=== PATIENT | female | born 1955 | race Caucasian/White ===

== ENCOUNTER → 2021-08-07 17:48 | Outpatient (CLI) | payer MEDICARE, BC, SELFPAY | PROVIDERS: Visit Provider Nurse Practitioner Family | DX: N39.0 Urinary tract infection, site not specified (principal) | CPT/HCPCS: 87086 ==

== ENCOUNTER 2024-12-28 09:45 | Outpatient (RCR) | payer MEDICARE, BC, SELFPAY ==
--- NOTE | 2024-07-10 18:40 | PT.OIE ---
Current Diagnoses Primary osteoarthritis, right shoulder (07/10/24) Superior glenoid labrum lesion of right shoulder, subsequent encounter (07/10/24) Strain of muscle(s) and tendon(s) of the rotator cuff of right shoulder, subsequent encounter (07/10/24) Visit Care Team Role Provider Type ANAID Fagan Family Provider Non-Staff Primary Care Provider Specialty: Medical Address: [address] [place] [address], [place], [address] Email: Cesar Cole PA-C Attending Provider Non-Staff Referring Provider Specialty: Medical Address: [address] [place] [address]. [address], [place], [address] Email: Physical Therapy Initial Evaluation PT-OP-A Visit Information Start: 07/09/24 13:22 Freq: Status: Active Protocol: Document 07/10/24 16:07 LRN (Rec: 07/10/24 18:28 LRN [id number]) Out-Patient Physical Therapy Visit Information Visit Information Visit Type Initial Evaluation Visit Note 17:10 Message left at physician office requesting protocol for pt's rehab and clarification of surgery performed (muscles involved and or labrum). 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 PT-OP-B Current Condition Start: 07/09/24 13:22 Freq: Status: Active Protocol: Document 07/10/24 16:07 LRN (Rec: 07/10/24 18:28 LRN [id number]) Current Condition History of Current Condition Onset Date 07/05/24 Current Complaints R shoulder, neck, biceps and into wrist, and back of shoulder pain History of Current Condition Pt reports 07/05/24 had R rotator cuff repair surgery, biceps repair, and repair of upper shoulder muscles. Not able to verify her surgery as documents not available. Pt states she could lift R arm before the surgery and touch the top of her head, but couldn't reach forward, out to side or backward due to pain (rated 6-7/10). 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 Spouse helps with bathing, dressing, combing hair, and does cooking of meals. Pt is on medications for her pain (reported 8-9/10) and she reports using her ice machine all the time because of the pain. Prior Treatments and Tests No PT prior to surgery, did self exercises. Developmental History Developmental History Pt reports she has always had low back pain since breaking her back in 2014 and wore a cast for 5 months and then soft cast for 2 months. Low Back Pain rated 0-5/10. Treatment Goals Patient/Caregiver Goals Pt goals: - get rotator cuff working and arm working to be able to use both arms for ADLs. - 2 wks post op - able to have PROM - 4 wks - start to lift arm and rotate at shoulder. - 8 wks - lift arm independently for self care of bathing and dressing. -12 wks - pt able to strengthen the arm to carry light objects, comb hair, cook simple meals w/L hand (pt is R handed). Personal Factors Other Personal Factors That May Effect Lives with spouse who can help Therapy/Recovery with home exercises. 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 Long hx of LBP from L3 burst fracture. PT-OP-C Subjective Start: 07/09/24 13:22 Freq: Status: Active Protocol: Document 07/10/24 16:07 LRN (Rec: 07/10/24 18:28 LRN [id number]) OP-PT Subjective Patient Comments Patient Comments Pt reports being light headed from the surgery. Spouse thinks she looked loopy after treatment. Patient Questionnaires Quick Dash- Upper Extremity Quick Dash UE Score 81.81 Quick Dash UE Impairment 80 to 99% Impaired (Score 80- 99) OP-PT Pain Assessment Pain Assessment Grid Paper Pain Assessment Grid Completed Yes Location R forearm Pain Location Details R forearm to wrist Intensity 6 Scale Used Numeric (0 - 10) Description Aching Frequency Constant Pain Alleviating Factors Medication Posterior R shldr/neck Intensity 9 Scale Used Numeric (0 - 10) Description- Other Achy and throbs Frequency Constant Pain Alleviating Factors Cold,Medication,Splinting Other Pain Alleviating Factors Ice machine that she leaves on although instructions are for off/on use. R shoulder Pain Location Details Around R shoulder, neck, and into brachium Intensity 9 Scale Used Numeric (0 - 10) Description- Other Achy and throbs Frequency Constant Pain Alleviating Factors Cold,Medication Other Pain Alleviating Factors Ice machine that she leaves on although instructions are for off/on use. Comments Pain Comments Per pain diagram her R shoulder pain ranges 6-7/10, but verbally she reports her pain is 8-9/10. PT-OP-H Neuro Start: 07/09/24 13:22 Freq: Status: Active Protocol: Document 07/10/24 16:07 LRN (Rec: 07/10/24 18:28 LRN [id number]) Sensation Evaluation Gross Sensation Gross Sensation WNL Comments Summary Comments Hyper sensitive in the R shoulder and axillary region. PT-OP-J Posture/Palpation/Skin Start: 07/09/24 13:22 Freq: Status: Active Protocol: Document 07/10/24 16:07 LRN (Rec: 07/10/24 18:28 LRN [id number]) Posture Evaluation Position Sitting Head/C-Spine Posture Forward Head Shoulder Posture (L) Elevated Comments Posture Comments Dowagers hump, mildly straightened T/S spine. Palpation Assessment Location R shoulder Palpation Location Below clavicle, shdr to neck, brachium and forearm. Palpation Findings Soft Tissue Tightness,Muscle Guarding,Tenderness PT-OP-K Range of Motion Start: 07/09/24 13:22 Freq: Status: Active Protocol: Document 07/10/24 16:07 LRN (Rec: 07/10/24 18:28 LRN [id number]) Shoulder Goniometric Range of Motion Shoulder Right Passive Testing Position Standing Flexion 43 Abduction 15 Comments PROM during Codman's exercise. Right Active Testing Position Sitting Comments AROM not appropriate. Left Active Shoulder ROM WFL Yes Testing Position Sitting Flexion 150 Extension 45 Abduction 180 Internal Rotation Behind Back (text) T11 Comments Behind the head: T2 PT-OP-M Strength Start: 07/09/24 13:22 Freq: Status: Active Protocol: Document 07/10/24 16:07 LRN (Rec: 07/10/24 18:28 LRN [id number]) Shoulder Strength Shoulder Manual Muscle Testing Right Comments Pt under restriction for R shoulder AROM. Pt is able to move her R shoulder minimally; therefore strength appears to be 0-1/10. Left Comments Strength is generally 3-4/5 as pt is able to move against gravity and can overcome resistance of velcro to don/ doff her R shoulder brace. Formal assessment will be performed at next visit. PT-OP-Q Treatments Start: 07/09/24 13:22 Freq: Status: Active Protocol: Document 07/10/24 16:07 LRN (Rec: 07/10/24 18:28 LRN [id number]) Therapeutic Exercises Standing Exercises Codman's Side right Reps/Minutes 10x CW/CCW Comments Cued pt not to actively make circles, but to swing arm for PROM. Therapeutic Activity Therapeutic Activity Don/Doff R shdr brace Name Donning & doffing of R shoulder ABD soft brace Reps/Minutes 8' Comments Pt visually shown location of velcro attachment to ABD pillow with use of mirror. Pt needed training for passive removal of brace from the R arm as she was lifting her arm in ABD to remove her R arm from the brace. Self-Care/Home Management Treatment Education Other Education Discussed results of evaluation, goals, treatment, and plan of care (POC) with pt , attendance/cx/dns policy; pt agreeable to evaluation, goals, treatment, attendance/ cx/dns policy and POC. Activities Self-Care/Home Management Activities Pt I/S to continue with only activities previously taught in hospital until protocol could be obtained. PT-OP-T Assessment and Plan Start: 07/09/24 13:22 Freq: Status: Active Protocol: Document 07/10/24 16:07 LRN (Rec: 07/10/24 18:28 LRN [id number]) Physical Therapy Assessment Rehab Potential Rehabilitation Potential Good Evaluation Complexity Number of Personal Factors/Comorbidities 1-2 Number of Body Systems Impaired 4 or More Clinical Presentation at Evaluation Evolving Impairments Impairments Activity Tolerance,Functional Activities,Functional Mobility ,Pain,Posture,ROM,Soft Tissue Mobility,Strength Goals Four Impairment Decreased function Short Term Goal (STG) pt able to strengthen the arm to carry light objects STG Duration 09/07/24 Forestry Patrolman Goal (LTG) Improve function per UE Quickdash score of 25 or less LTG Duration 10/30/24 Three Impairment Decreased R shoulder strength Short Term Goal (STG) Pt will be able to lift her R arm overhead and rotate at shoulder for independent dressing and personal care ( comb hair). STG Duration 09/07/24 Group Home Goal (LTG) Pt will be able to cook simple light wgt meals with R arm, and use both arms for ADLs ( bathing and cooking). LTG Duration 10/30/24 Two Impairment Decreased R shoulder PROM Short Term Goal (STG) Improve R shoulder PROM to 50% of normal (per L shoulder PROM) once cleared for all motions of PROM. STG Duration 09/07/24 Group Home Goal (LTG) Improve R shoulder PROM to 80% -90% of normal ROM (per L shoulder PROM) LTG Duration 10/30/24 One Impairment Lacks appropriate self care HEP Short Term Goal (STG) Pt will be on a home exercise program with the assist of her spouse for PROM exercises and pain managment. STG Duration 08/03/24 Group Home Goal (LTG) Pt will be independent in a self care HEP of R shoulder PROM/AROM/strengthening ex's for return to her prior level of function. LTG Duration 10/30/24 Assessment Summary Assessment Pt is a 68 yo female who present s/p R rotator cuff repair (07/05/24) and per pt, biceps and other soft tissue repairs. Record review shows no protocol or surgical notes available. Message has been left at referring physician's office requesting protocol and clarification of surgery performed/surgical note. The pt is 81% functionally impaired per UE Quickdash scoring and is being assisted by her spouse with all daily activities (dressing, bathing, personal care, cooking). The pt is extremely limited in passive R shoulder mobility ( as noted per Codman exercise) and is expected to be limited to PROM of the shoulder for at least 4-6 weeks, but protocol not yet available. The pt has a very supportive spouse. The pt will benefit from skilled physical therapy to return her an improved prior level of functional. Physical Therapy Plan Frequency and Duration Frequency of Treatment 2x/Week Duration of treatment (weeks) 16 Plan of Care Start Date 07/10/24 Plan of Care End Date 10/30/24 Therapeutic Interventions Therapeutic Interventions Home Exercise Program,Manual Therapy,Neuromuscular Re- education,Self-Care/Home Management,Soft Tissue Mobilization,Taping, Therapeutic Activities, Therapeutic Exercises Modalities Cold Pack/Ice Massage,Electric Stimulation,Hot Packs, Ultrasound Next Visit Focus/Plan Next Note Type Treatment Note Next Visit Plan Request MD rehab protocol and clarify if pt had biceps repair and other upper shoulder ms repaired and if labrum was repaired. MMT L shoulder/elbow/wrist strength. Assess L shoulder PROM in supine (hold or R shoulder until protocol obtained), and active forearm/wrist ROM/ strength. Codman's PROM of R shoulder only until protocol and surgical history obtained. Gentle STM/AROM of neck and intrascapular ms as tolerated, STM of R forearm. Pt education in sleeping posturing. POC: R shoulder RCR rehab, ? Biceps/?labral repair. Therapeutic Ex (strengthening/ ROM), Therapeutic Activity ( ADL, personal grooming), manual therapy (STM), Pt Education (HEP, Edema and pain mgmt).
--- NOTE | 2024-07-13 12:38 | PT.OTN ---
Current Diagnoses Primary osteoarthritis, right shoulder (07/13/24) Superior glenoid labrum lesion of right shoulder, subsequent encounter (07/13/24) Strain of muscle(s) and tendon(s) of the rotator cuff of right shoulder, subsequent encounter (07/13/24) Physical Therapy Treatment Note PT-OP-A Visit Information Start: 07/09/24 13:22 Freq: Status: Active Protocol: Document 07/13/24 10:44 LRN (Rec: 07/13/24 12:23 LRN [id number]) Out-Patient Physical Therapy Visit Information Visit Information Visit Type Treatment Note Visit Note Protocol rec'd from physician for RCR-Small to Medium sized tear, Extensive SLAP tear. Visit Start Time 10:44 Visit Stop Time 11:35 Visit Number 2 Evaluation Information Evaluation Date 07/10/24 Precautions Precautions 07/12/24 P/O arthroscopic R shdr RCR rpr, biceps tenodesis & debridement of extensive superior labral tearing (SLAP tear). 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 PT-OP-B Current Condition Start: 07/09/24 13:22 Freq: Status: Active Protocol: Document 07/10/24 16:07 LRN (Rec: 07/10/24 18:28 LRN [id number]) Current Condition History of Current Condition Onset Date 07/05/24 Current Complaints R shoulder, neck, biceps and into wrist, and back of shoulder pain History of Current Condition Pt reports 07/05/24 had R rotator cuff repair surgery, biceps repair, and repair of upper shoulder muscles. Not able to verify her surgery as documents not available. Pt states she could lift R arm before the surgery and touch the top of her head, but couldn't reach forward, out to side or backward due to pain (rated 6-7/10). 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 Spouse helps with bathing, dressing, combing hair, and does cooking of meals. Pt is on medications for her pain (reported 8-9/10) and she reports using her ice machine all the time because of the pain. Prior Treatments and Tests No PT prior to surgery, did self exercises. Developmental History Developmental History Pt reports she has always had low back pain since breaking her back in 2014 and wore a cast for 5 months and then soft cast for 2 months. Low Back Pain rated 0-5/10. Treatment Goals Patient/Caregiver Goals Pt goals: - get rotator cuff working and arm working to be able to use both arms for ADLs. - 2 wks post op - able to have PROM - 4 wks - start to lift arm and rotate at shoulder. - 8 wks - lift arm independently for self care of bathing and dressing. -12 wks - pt able to strengthen the arm to carry light objects, comb hair, cook simple meals w/L hand (pt is R handed). Personal Factors Other Personal Factors That May Effect Lives with spouse who can help Therapy/Recovery with home exercises. 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 Long hx of LBP from L3 burst fracture. PT-OP-C Subjective Start: 07/09/24 13:22 Freq: Status: Active Protocol: Document 07/13/24 10:44 LRN (Rec: 07/13/24 12:23 LRN [id number]) OP-PT Subjective Patient Comments Patient Comments Pt brings in papers from surgery for review. Wanting review of her home ex's and what she is doing at home. PT-OP-H Neuro Start: 07/09/24 13:22 Freq: Status: Active Protocol: Document 07/10/24 16:07 LRN (Rec: 07/10/24 18:28 LRN [id number]) Sensation Evaluation Gross Sensation Gross Sensation WNL Comments Summary Comments Hyper sensitive in the R shoulder and axillary region. PT-OP-J Posture/Palpation/Skin Start: 07/09/24 13:22 Freq: Status: Active Protocol: Document 07/10/24 16:07 LRN (Rec: 07/10/24 18:28 LRN [id number]) Posture Evaluation Position Sitting Head/C-Spine Posture Forward Head Shoulder Posture (L) Elevated Comments Posture Comments Dowagers hump, mildly straightened T/S spine. Palpation Assessment Location R shoulder Palpation Location Below clavicle, shdr to neck, brachium and forearm. Palpation Findings Soft Tissue Tightness,Muscle Guarding,Tenderness PT-OP-K Range of Motion Start: 07/09/24 13:22 Freq: Status: Active Protocol: Document 07/10/24 16:07 LRN (Rec: 07/10/24 18:28 LRN [id number]) Shoulder Goniometric Range of Motion Shoulder Right Passive Testing Position Standing Flexion 43 Abduction 15 Comments PROM during Codman's exercise. Right Active Testing Position Sitting Comments AROM not appropriate. Left Active Shoulder ROM WFL Yes Testing Position Sitting Flexion 150 Extension 45 Abduction 180 Internal Rotation Behind Back (text) T11 Comments Behind the head: T2 PT-OP-M Strength Start: 07/09/24 13:22 Freq: Status: Active Protocol: Document 07/10/24 16:07 LRN (Rec: 07/10/24 18:28 LRN [id number]) Shoulder Strength Shoulder Manual Muscle Testing Right Comments Pt under restriction for R shoulder AROM. Pt is able to move her R shoulder minimally; therefore strength appears to be 0-1/10. Left Comments Strength is generally 3-4/5 as pt is able to move against gravity and can overcome resistance of velcro to don/ doff her R shoulder brace. Formal assessment will be performed at next visit. PT-OP-Q Treatments Start: 07/09/24 13:22 Freq: Status: Active Protocol: Document 07/13/24 10:44 LRN (Rec: 07/13/24 12:23 LRN [id number]) Therapeutic Exercises Supine Exercises Diaphragmatic Breathing Supine Exercise Name Deep Breathing Reps/Minutes 4' Comments Cued to place hand on chest and abdomen to relax chest Semi-reclined Bowel massage Supine Exercise Name Training in semi-reclined bowel massage Reps/Minutes 10x - 10' Comments Much v cuing and some phys cuing for proper movement/ speed Sitting Exercises Wrist flex/ext Sitting Exercise Name AROM Side left Reps/Minutes 10x in sup, 10x in pron Sup/Pron Sitting Exercise Name Self assisted forearm sup/pron Side left Reps/Minutes 15x R elbow flex Sitting Exercise Name Self assisted elbow flexion Side left Reps/Minutes 10x Comments Pt had no shoulder pain. Standing Exercises Codman's Side right Reps/Minutes 10x CW/CCW Comments Cued pt not to actively make circles, but to swing arm for PROM. Therapeutic Activity Therapeutic Activity Don/Doff R shdr brace Name Donning & doffing of R shoulder ABD soft brace Reps/Minutes 16' Comments Reviewed brace fit as pt explained how she removes the brace, moving very slowly through the process. At end of treatment the pt needed assist for donning of R ABD brace and reseting of strap that was twisted. Manual Therapy Treatment Consent Patient gave verbal consent for manual Yes treatment Soft Tissue Mobilization Bowel Massage Body Location R hip>R lower ribcage>L lower ribcage>L hip Mobilization Type Other Intensity/Depth Superficial Body Position Semi-reclined Comments Massage in CCW circles. I/S in ILU massage as well, but practiced BM Stimulation massage. Self-Care/Home Management Treatment Education Other Education Reviewed MD protocol (PO 0-3 wks) of approved PROM R shoulder: Flex <90?, AB 30-40 ?, ER<20? in scapular plane. PROM elbow flex, AROM hand, wrist, AAROM-none. @2wks periscapular Active mvmts. Discussed with pt HEP: active wrist flex/ext, AA sup/pron ( due to weakness), and assisted elbow flex/ext. Activities Self-Care/Home Management Activities Issued & reviewed handouts for Bowel Stimulation massage, and Diaphragmatic Breathing. PT-OP-R Modalities Start: 07/09/24 13:22 Freq: Status: Active Protocol: Document 07/13/24 10:44 LRN (Rec: 07/13/24 12:23 LRN [id number]) Hot Pack/Cold Pack Treatment Cold Pack Location R shoulder Patient Position Sitting Patient Tolerance Good Comments Pt set up with disposable ice pack since pt was not returning home immediately. PT-OP-T Assessment and Plan Start: 07/09/24 13:22 Freq: Status: Active Protocol: Document 07/13/24 10:44 LRN (Rec: 07/13/24 12:23 LRN [id number]) Physical Therapy Assessment Goals Four Impairment Decreased function Short Term Goal (STG) pt able to strengthen the arm to carry light objects STG Duration 09/07/24 Correction Goal (LTG) Improve function per UE Quickdash score of 25 or less LTG Duration 10/30/24 Three Impairment Decreased R shoulder strength Short Term Goal (STG) Pt will be able to lift her R arm overhead and rotate at shoulder for independent dressing and personal care ( comb hair). STG Duration 09/07/24 Correction Goal (LTG) Pt will be able to cook simple light wgt meals with R arm, and use both arms for ADLs ( bathing and cooking). LTG Duration 10/30/24 Two Impairment Decreased R shoulder PROM Short Term Goal (STG) Improve R shoulder PROM to 50% of normal (per L shoulder PROM) once cleared for all motions of PROM. STG Duration 09/07/24 Lan Analyst Goal (LTG) Improve R shoulder PROM to 80% -90% of normal ROM (per L shoulder PROM) LTG Duration 10/30/24 One Impairment Lacks appropriate self care HEP Short Term Goal (STG) Pt will be on a home exercise program with the assist of her spouse for PROM exercises and pain managment. 07/13/24: I/S pt in self PROM of elbow and forearm sup/pron , and Active wrist flex/ext. Deep breathing and bowel massage. STG Duration 08/03/24 progressed 07/13/24 Lan Analyst Goal (LTG) Pt will be independent in a self care HEP of R shoulder PROM/AROM/strengthening ex's for return to her prior level of function. 07/13/24: I/S pt in self PROM of elbow and forearm sup/pron , and Active wrist flex/ext. Deep breathing and bowel massage. LTG Duration 10/30/24 progressed 07/13/24 Assessment Summary Assessment 68 yo female 1wk and a day s/p R RC rpr/biceps tenodesis/ subacromial bursectomy/ extensive SLAP tear debridement, 81% functionally impaired per UE Quickdash. Rehab protocol received; therefore rehab will follow referring physicians protocol. Today, the pt is having less pain in R shoulder, but does complain of constipation and abdominal discomfort. She may be minimally using her biceps some with haircair maneuvers; therefore further discussion of precautions is needed. After training she was able to demonstrate proper Codman's for PROM at shoulder vs what appeared to be more of a painful AROM method. Physical Therapy Plan Frequency and Duration Frequency of Treatment 2x/Week Duration of treatment (weeks) 16 Plan of Care Start Date 07/10/24 Plan of Care End Date 10/30/24 Next Visit Focus/Plan Next Note Type Treatment Note Next Visit Plan MD protocol (PO 0-3 wks) of approved PROM: R shoulder Flex <90?, AB 30-40?, ER<20? in scapular plane, IR 0?. PROM elbow flex, AROM hand, wrist, AAROM-none. No shoulder AROM/ AAROM, no lifting of objects. Hold periscapular Active mvmts (retract, infer glide, setting, low row as subscap/ teres min rpr as noted in op report of full thickness RC tear). See progression criteria per protocol. Educate/train pt in PROM biceps until s/p 4 wks can start AAROM. Improve PROM of shoulder <20? and flex <90?. No scapular ex until
--- NOTE | 2024-07-13 12:39 | PT.OTN ---
Current Diagnoses Primary osteoarthritis, right shoulder (07/13/24) Superior glenoid labrum lesion of right shoulder, subsequent encounter (07/13/24) Strain of muscle(s) and tendon(s) of the rotator cuff of right shoulder, subsequent encounter (07/13/24) Physical Therapy Treatment Note PT-OP-A Visit Information Start: 07/09/24 13:22 Freq: Status: Active Protocol: Document 07/13/24 10:44 LRN (Rec: 07/13/24 12:23 LRN [id number]) Out-Patient Physical Therapy Visit Information Visit Information Visit Type Treatment Note Visit Note Protocol rec'd from physician for RCR-Small to Medium sized tear, Extensive SLAP tear. Visit Start Time 10:44 Visit Stop Time 11:35 Visit Number 2 Evaluation Information Evaluation Date 07/10/24 Precautions Precautions 07/12/24 P/O arthroscopic R shdr RCR rpr, biceps tenodesis & debridement of extensive superior labral tearing (SLAP tear). 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 PT-OP-B Current Condition Start: 07/09/24 13:22 Freq: Status: Active Protocol: Document 07/10/24 16:07 LRN (Rec: 07/10/24 18:28 LRN [id number]) Current Condition History of Current Condition Onset Date 07/05/24 Current Complaints R shoulder, neck, biceps and into wrist, and back of shoulder pain History of Current Condition Pt reports 07/05/24 had R rotator cuff repair surgery, biceps repair, and repair of upper shoulder muscles. Not able to verify her surgery as documents not available. Pt states she could lift R arm before the surgery and touch the top of her head, but couldn't reach forward, out to side or backward due to pain (rated 6-7/10). 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 Spouse helps with bathing, dressing, combing hair, and does cooking of meals. Pt is on medications for her pain (reported 8-9/10) and she reports using her ice machine all the time because of the pain. Prior Treatments and Tests No PT prior to surgery, did self exercises. Developmental History Developmental History Pt reports she has always had low back pain since breaking her back in 2014 and wore a cast for 5 months and then soft cast for 2 months. Low Back Pain rated 0-5/10. Treatment Goals Patient/Caregiver Goals Pt goals: - get rotator cuff working and arm working to be able to use both arms for ADLs. - 2 wks post op - able to have PROM - 4 wks - start to lift arm and rotate at shoulder. - 8 wks - lift arm independently for self care of bathing and dressing. -12 wks - pt able to strengthen the arm to carry light objects, comb hair, cook simple meals w/L hand (pt is R handed). Personal Factors Other Personal Factors That May Effect Lives with spouse who can help Therapy/Recovery with home exercises. 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 Long hx of LBP from L3 burst fracture. PT-OP-C Subjective Start: 07/09/24 13:22 Freq: Status: Active Protocol: Document 07/13/24 10:44 LRN (Rec: 07/13/24 12:23 LRN [id number]) OP-PT Subjective Patient Comments Patient Comments Pt brings in papers from surgery for review. Wanting review of her home ex's and what she is doing at home. PT-OP-H Neuro Start: 07/09/24 13:22 Freq: Status: Active Protocol: Document 07/10/24 16:07 LRN (Rec: 07/10/24 18:28 LRN [id number]) Sensation Evaluation Gross Sensation Gross Sensation WNL Comments Summary Comments Hyper sensitive in the R shoulder and axillary region. PT-OP-J Posture/Palpation/Skin Start: 07/09/24 13:22 Freq: Status: Active Protocol: Document 07/10/24 16:07 LRN (Rec: 07/10/24 18:28 LRN [id number]) Posture Evaluation Position Sitting Head/C-Spine Posture Forward Head Shoulder Posture (L) Elevated Comments Posture Comments Dowagers hump, mildly straightened T/S spine. Palpation Assessment Location R shoulder Palpation Location Below clavicle, shdr to neck, brachium and forearm. Palpation Findings Soft Tissue Tightness,Muscle Guarding,Tenderness PT-OP-K Range of Motion Start: 07/09/24 13:22 Freq: Status: Active Protocol: Document 07/10/24 16:07 LRN (Rec: 07/10/24 18:28 LRN [id number]) Shoulder Goniometric Range of Motion Shoulder Right Passive Testing Position Standing Flexion 43 Abduction 15 Comments PROM during Codman's exercise. Right Active Testing Position Sitting Comments AROM not appropriate. Left Active Shoulder ROM WFL Yes Testing Position Sitting Flexion 150 Extension 45 Abduction 180 Internal Rotation Behind Back (text) T11 Comments Behind the head: T2 PT-OP-M Strength Start: 07/09/24 13:22 Freq: Status: Active Protocol: Document 07/10/24 16:07 LRN (Rec: 07/10/24 18:28 LRN [id number]) Shoulder Strength Shoulder Manual Muscle Testing Right Comments Pt under restriction for R shoulder AROM. Pt is able to move her R shoulder minimally; therefore strength appears to be 0-1/10. Left Comments Strength is generally 3-4/5 as pt is able to move against gravity and can overcome resistance of velcro to don/ doff her R shoulder brace. Formal assessment will be performed at next visit. PT-OP-Q Treatments Start: 07/09/24 13:22 Freq: Status: Active Protocol: Document 07/13/24 10:44 LRN (Rec: 07/13/24 12:23 LRN [id number]) Therapeutic Exercises Supine Exercises Diaphragmatic Breathing Supine Exercise Name Deep Breathing Reps/Minutes 4' Comments Cued to place hand on chest and abdomen to relax chest Semi-reclined Bowel massage Supine Exercise Name Training in semi-reclined bowel massage Reps/Minutes 10x - 10' Comments Much v cuing and some phys cuing for proper movement/ speed Sitting Exercises Wrist flex/ext Sitting Exercise Name AROM Side left Reps/Minutes 10x in sup, 10x in pron Sup/Pron Sitting Exercise Name Self assisted forearm sup/pron Side left Reps/Minutes 15x R elbow flex Sitting Exercise Name Self assisted elbow flexion Side left Reps/Minutes 10x Comments Pt had no shoulder pain. Standing Exercises Codman's Side right Reps/Minutes 10x CW/CCW Comments Cued pt not to actively make circles, but to swing arm for PROM. Therapeutic Activity Therapeutic Activity Don/Doff R shdr brace Name Donning & doffing of R shoulder ABD soft brace Reps/Minutes 16' Comments Reviewed brace fit as pt explained how she removes the brace, moving very slowly through the process. At end of treatment the pt needed assist for donning of R ABD brace and reseting of strap that was twisted. Manual Therapy Treatment Consent Patient gave verbal consent for manual Yes treatment Soft Tissue Mobilization Bowel Massage Body Location R hip>R lower ribcage>L lower ribcage>L hip Mobilization Type Other Intensity/Depth Superficial Body Position Semi-reclined Comments Massage in CCW circles. I/S in ILU massage as well, but practiced BM Stimulation massage. Self-Care/Home Management Treatment Education Other Education Reviewed MD protocol (PO 0-3 wks) of approved PROM R shoulder: Flex <90?, AB 30-40 ?, ER<20? in scapular plane. PROM elbow flex, AROM hand, wrist, AAROM-none. @2wks periscapular Active mvmts. Discussed with pt HEP: active wrist flex/ext, AA sup/pron ( due to weakness), and assisted elbow flex/ext. Activities Self-Care/Home Management Activities Issued & reviewed handouts for Bowel Stimulation massage, and Diaphragmatic Breathing. PT-OP-R Modalities Start: 07/09/24 13:22 Freq: Status: Active Protocol: Document 07/13/24 10:44 LRN (Rec: 07/13/24 12:23 LRN [id number]) Hot Pack/Cold Pack Treatment Cold Pack Location R shoulder Patient Position Sitting Patient Tolerance Good Comments Pt set up with disposable ice pack since pt was not returning home immediately. PT-OP-T Assessment and Plan Start: 07/09/24 13:22 Freq: Status: Active Protocol: Document 07/13/24 10:44 LRN (Rec: 07/13/24 12:23 LRN [id number]) Physical Therapy Assessment Goals Four Impairment Decreased function Short Term Goal (STG) pt able to strengthen the arm to carry light objects STG Duration 09/07/24 [facility] Goal (LTG) Improve function per UE Quickdash score of 25 or less LTG Duration 10/30/24 Three Impairment Decreased R shoulder strength Short Term Goal (STG) Pt will be able to lift her R arm overhead and rotate at shoulder for independent dressing and personal care ( comb hair). STG Duration 09/07/24 [facility] Goal (LTG) Pt will be able to cook simple light wgt meals with R arm, and use both arms for ADLs ( bathing and cooking). LTG Duration 10/30/24 Two Impairment Decreased R shoulder PROM Short Term Goal (STG) Improve R shoulder PROM to 50% of normal (per L shoulder PROM) once cleared for all motions of PROM. STG Duration 09/07/24 Sliver Lap Machine Tender Goal (LTG) Improve R shoulder PROM to 80% -90% of normal ROM (per L shoulder PROM) LTG Duration 10/30/24 One Impairment Lacks appropriate self care HEP Short Term Goal (STG) Pt will be on a home exercise program with the assist of her spouse for PROM exercises and pain managment. 07/13/24: I/S pt in self PROM of elbow and forearm sup/pron , and Active wrist flex/ext. Deep breathing and bowel massage. STG Duration 08/03/24 progressed 07/13/24 Sliver Lap Machine Tender Goal (LTG) Pt will be independent in a self care HEP of R shoulder PROM/AROM/strengthening ex's for return to her prior level of function. 07/13/24: I/S pt in self PROM of elbow and forearm sup/pron , and Active wrist flex/ext. Deep breathing and bowel massage. LTG Duration 10/30/24 progressed 07/13/24 Assessment Summary Assessment 68 yo female 1wk and a day s/p R RC rpr/biceps tenodesis/ subacromial bursectomy/ extensive SLAP tear debridement, 81% functionally impaired per UE Quickdash. Rehab protocol received; therefore rehab will follow referring physicians protocol. Today, the pt is having less pain in R shoulder, but does complain of constipation and abdominal discomfort. She may be minimally using her biceps some with haircair maneuvers; therefore further discussion of precautions is needed. After training she was able to demonstrate proper Codman's for PROM at shoulder vs what appeared to be more of a painful AROM method. Physical Therapy Plan Frequency and Duration Frequency of Treatment 2x/Week Duration of treatment (weeks) 16 Plan of Care Start Date 07/10/24 Plan of Care End Date 10/30/24 Next Visit Focus/Plan Next Note Type Treatment Note Next Visit Plan MD protocol (PO 0-3 wks) of approved PROM: R shoulder Flex <90?, AB 30-40?, ER<20? in scapular plane, IR 0?. PROM elbow flex, AROM hand, wrist, AAROM-none. No shoulder AROM/ AAROM, no lifting of objects. Hold periscapular Active mvmts (retract, infer glide, setting, low row as subscap/ teres min rpr as noted in op report of full thickness RC tear). See progression criteria per protocol. Educate/train pt in PROM biceps until s/p 4 wks can start AAROM. Improve PROM of shoulder <20? and flex <90?. No scapular ex until
--- NOTE | 2024-07-18 16:39 | PT.OTN ---
Current Diagnoses Primary osteoarthritis, right shoulder (07/18/24) Superior glenoid labrum lesion of right shoulder, subsequent encounter (07/18/24) Strain of muscle(s) and tendon(s) of the rotator cuff of right shoulder, subsequent encounter (07/18/24) Physical Therapy Treatment Note PT-OP-A Visit Information Start: 07/09/24 13:22 Freq: Status: Active Protocol: Document 07/18/24 13:05 LRN (Rec: 07/18/24 13:50 LRN [id number]) Out-Patient Physical Therapy Visit Information Visit Information Visit Type Treatment Note Visit Start Time 13:05 Visit Stop Time 13:49 Visit Number 3 Evaluation Information Evaluation Date 07/10/24 Precautions Precautions 07/05/24 P/O arthroscopic R shdr RCR rpr, biceps tenodesis & debridement of extensive superior labral tearing (SLAP tear). 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 No cryotherapy to take due to last time water spilled out. PT-OP-B Current Condition Start: 07/09/24 13:22 Freq: Status: Active Protocol: Document 07/10/24 16:07 LRN (Rec: 07/10/24 18:28 LRN [id number]) Current Condition History of Current Condition Onset Date 07/05/24 Current Complaints R shoulder, neck, biceps and into wrist, and back of shoulder pain History of Current Condition Pt reports 07/05/24 had R rotator cuff repair surgery, biceps repair, and repair of upper shoulder muscles. Not able to verify her surgery as documents not available. Pt states she could lift R arm before the surgery and touch the top of her head, but couldn't reach forward, out to side or backward due to pain (rated 6-7/10). 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 Spouse helps with bathing, dressing, combing hair, and does cooking of meals. Pt is on medications for her pain (reported 8-9/10) and she reports using her ice machine all the time because of the pain. Prior Treatments and Tests No PT prior to surgery, did self exercises. Developmental History Developmental History Pt reports she has always had low back pain since breaking her back in 2014 and wore a cast for 5 months and then soft cast for 2 months. Low Back Pain rated 0-5/10. Treatment Goals Patient/Caregiver Goals Pt goals: - get rotator cuff working and arm working to be able to use both arms for ADLs. - 2 wks post op - able to have PROM - 4 wks - start to lift arm and rotate at shoulder. - 8 wks - lift arm independently for self care of bathing and dressing. -12 wks - pt able to strengthen the arm to carry light objects, comb hair, cook simple meals w/L hand (pt is R handed). Personal Factors Other Personal Factors That May Effect Lives with spouse who can help Therapy/Recovery with home exercises. 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 Long hx of LBP from L3 burst fracture. PT-OP-C Subjective Start: 07/09/24 13:22 Freq: Status: Active Protocol: Document 07/18/24 13:05 LRN (Rec: 07/18/24 13:50 LRN [id number]) OP-PT Subjective Patient Comments Patient Comments Saw PA yesterday and was told she was doing good. PT-OP-H Neuro Start: 07/09/24 13:22 Freq: Status: Active Protocol: Document 07/10/24 16:07 LRN (Rec: 07/10/24 18:28 LRN [id number]) Sensation Evaluation Gross Sensation Gross Sensation WNL Comments Summary Comments Hyper sensitive in the R shoulder and axillary region. PT-OP-J Posture/Palpation/Skin Start: 07/09/24 13:22 Freq: Status: Active Protocol: Document 07/10/24 16:07 LRN (Rec: 07/10/24 18:28 LRN [id number]) Posture Evaluation Position Sitting Head/C-Spine Posture Forward Head Shoulder Posture (L) Elevated Comments Posture Comments Dowagers hump, mildly straightened T/S spine. Palpation Assessment Location R shoulder Palpation Location Below clavicle, shdr to neck, brachium and forearm. Palpation Findings Soft Tissue Tightness,Muscle Guarding,Tenderness PT-OP-K Range of Motion Start: 07/09/24 13:22 Freq: Status: Active Protocol: Document 07/10/24 16:07 LRN (Rec: 07/10/24 18:28 LRN [id number]) Shoulder Goniometric Range of Motion Shoulder Right Passive Testing Position Standing Flexion 43 Abduction 15 Comments PROM during Codman's exercise. Right Active Testing Position Sitting Comments AROM not appropriate. Left Active Shoulder ROM WFL Yes Testing Position Sitting Flexion 150 Extension 45 Abduction 180 Internal Rotation Behind Back (text) T11 Comments Behind the head: T2 PT-OP-M Strength Start: 07/09/24 13:22 Freq: Status: Active Protocol: Document 07/10/24 16:07 LRN (Rec: 07/10/24 18:28 LRN [id number]) Shoulder Strength Shoulder Manual Muscle Testing Right Comments Pt under restriction for R shoulder AROM. Pt is able to move her R shoulder minimally; therefore strength appears to be 0-1/10. Left Comments Strength is generally 3-4/5 as pt is able to move against gravity and can overcome resistance of velcro to don/ doff her R shoulder brace. Formal assessment will be performed at next visit. PT-OP-Q Treatments Start: 07/09/24 13:22 Freq: Status: Active Protocol: Document 07/18/24 13:05 LRN (Rec: 07/18/24 13:50 LRN [id number]) Therapeutic Exercises Sitting Exercises Table slide Sitting Exercise Name Shoulder flex with slider sheet. Side right Reps/Minutes 10x Comments rest needed after ex Wrist flex/ext Sitting Exercise Name Semi-sit on plinth AROM Side left Reps/Minutes 15x Comments Arm in 20 deg AB Sup/Pron Sitting Exercise Name Semi-sit on plinth, Self assisted forearm sup/pron Side left Reps/Minutes 20x Comments Arm in 20 deg AB R elbow flex Sitting Exercise Name Semi-sit on plinth Passive flexion, active ext Side left Reps/Minutes 10x Comments Shoulder pain on releasing biceps for ext. Standing Exercises Codman's Standing Exercise Name forward bend stretch, then circles Side right Reps/Minutes 10x 3 CW/CCW, mving legs, mving hips, mving shoulders Comments Cued to swing arm for PROM and more fwd motion, rest after exer. PT-OP-R Modalities Start: 07/09/24 13:22 Freq: Status: Active Protocol: Document 07/13/24 10:44 LRN (Rec: 07/13/24 12:23 LRN [id number]) Hot Pack/Cold Pack Treatment Cold Pack Location R shoulder Patient Position Sitting Patient Tolerance Good Comments Pt set up with disposable ice pack since pt was not returning home immediately. PT-OP-T Assessment and Plan Start: 07/09/24 13:22 Freq: Status: Active Protocol: Document 07/18/24 13:05 LRN (Rec: 07/18/24 13:50 LRN [id number]) Physical Therapy Assessment Goals Four Impairment Decreased function Short Term Goal (STG) pt able to strengthen the arm to carry light objects STG Duration 09/07/24 Senior Living Goal (LTG) Improve function per UE Quickdash score of 25 or less LTG Duration 10/30/24 Three Impairment Decreased R shoulder strength Short Term Goal (STG) Pt will be able to lift her R arm overhead and rotate at shoulder for independent dressing and personal care ( comb hair). STG Duration 09/07/24 Insurance Account Representative Goal (LTG) Pt will be able to cook simple light wgt meals with R arm, and use both arms for ADLs ( bathing and cooking). LTG Duration 10/30/24 Two Impairment Decreased R shoulder PROM Short Term Goal (STG) Improve R shoulder PROM to 50% of normal (per L shoulder PROM) once cleared for all motions of PROM. STG Duration 09/07/24 Senior Living Goal (LTG) Improve R shoulder PROM to 80% -90% of normal ROM (per L shoulder PROM) LTG Duration 10/30/24 One Impairment Lacks appropriate self care HEP Short Term Goal (STG) Pt will be on a home exercise program with the assist of her spouse for PROM exercises and pain managment. 07/13/24: I/S pt in self PROM of elbow and forearm sup/pron , and Active wrist flex/ext. Deep breathing and bowel massage. STG Duration 08/03/24 progressed 07/13/24 Senior Living Goal (LTG) Pt will be independent in a self care HEP of R shoulder PROM/AROM/strengthening ex's for return to her prior level of function. 07/13/24: I/S pt in self PROM of elbow and forearm sup/pron , and Active wrist flex/ext. Deep breathing and bowel massage. LTG Duration 10/30/24 progressed 07/13/24 Assessment Summary Assessment 68 yo female 1 day short of 2 wks po R RC rpr(07/05/24)/ biceps tenodesis/subacromial bursectomy/extensive SLAP ( superior labral A-P) tear debridement. Today able to achieve 88 deg's passive shoulder flex with table slide ex. Pt able to do scapular pinch in sit, but not supine. Sore at end of therapy. Pt not wanting to take ice pack due to mess of water. Physical Therapy Plan Frequency and Duration Frequency of Treatment 2x/Week Duration of treatment (weeks) 16 Plan of Care Start Date 07/10/24 Plan of Care End Date 10/30/24 Next Visit Focus/Plan Next Note Type Treatment Note Next Visit Plan MD hall to mod R RCR protocol (PO 0-3 wks) of approved PROM : R shoulder Flex <90?, AB 30- 40?, ER<20? in scapular plane, IR 0?. PROM elbow flex, AROM hand, wrist, AAROM-none. No shoulder AROM/AAROM, no lifting of objects. Hold periscapular Active mvmts ( retract, infer glide, setting, low row as subscap/teres min rpr as noted in op report of full thickness RC tear). See progression criteria per protocol. Educate/train pt in PROM biceps until s/p 4 wks can start AAROM. Improve PROM of shoulder <20? and flex <90?. No scapular ex until
--- NOTE | 2024-07-20 14:46 | PT.OTN ---
Current Diagnoses Primary osteoarthritis, right shoulder (07/20/24) Superior glenoid labrum lesion of right shoulder, subsequent encounter (07/20/24) Strain of muscle(s) and tendon(s) of the rotator cuff of right shoulder, subsequent encounter (07/20/24) Physical Therapy Treatment Note PT-OP-A Visit Information Start: 07/09/24 13:22 Freq: Status: Active Protocol: Document 07/20/24 12:57 AB (Rec: 07/20/24 14:40 AB [id number]) Out-Patient Physical Therapy Visit Information Visit Information Visit Type Treatment Note Visit Start Time 13:48 Visit Stop Time 14:35 Visit Number 4 Number of DIRECTOR OF PUBLIC SAFETY Visits 1 Evaluation Information Evaluation Date 07/10/24 PT-OP-B Current Condition Start: 07/09/24 13:22 Freq: Status: Active Protocol: Document 07/10/24 16:07 LRN (Rec: 07/10/24 18:28 LRN [id number]) Current Condition History of Current Condition Onset Date 07/05/24 Current Complaints R shoulder, neck, biceps and into wrist, and back of shoulder pain History of Current Condition Pt reports 07/05/24 had R rotator cuff repair surgery, biceps repair, and repair of upper shoulder muscles. Not able to verify her surgery as documents not available. Pt states she could lift R arm before the surgery and touch the top of her head, but couldn't reach forward, out to side or backward due to pain (rated 6-7/10). 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 Spouse helps with bathing, dressing, combing hair, and does cooking of meals. Pt is on medications for her pain (reported 8-9/10) and she reports using her ice machine all the time because of the pain. Prior Treatments and Tests No PT prior to surgery, did self exercises. Developmental History Developmental History Pt reports she has always had low back pain since breaking her back in 2014 and wore a cast for 5 months and then soft cast for 2 months. Low Back Pain rated 0-5/10. Treatment Goals Patient/Caregiver Goals Pt goals: - get rotator cuff working and arm working to be able to use both arms for ADLs. - 2 wks post op - able to have PROM - 4 wks - start to lift arm and rotate at shoulder. - 8 wks - lift arm independently for self care of bathing and dressing. -12 wks - pt able to strengthen the arm to carry light objects, comb hair, cook simple meals w/L hand (pt is R handed). Personal Factors Other Personal Factors That May Effect Lives with spouse who can help Therapy/Recovery with home exercises. 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 Long hx of LBP from L3 burst fracture. PT-OP-C Subjective Start: 07/09/24 13:22 Freq: Status: Active Protocol: Document 07/20/24 12:57 AB (Rec: 07/20/24 14:40 AB [id number]) OP-PT Subjective Patient Comments Patient Comments Patient reports she did 15 of all exercise for HEP except Codmans performed X 60, iced after and had increased, it was not a good night. Anabel rates pain 8/10 comments she took pain medication about an hour ago. Start of session PROM L shoulder ER 5 deg, flex in scap plane ~20 deg. Patient reports she peeled carrots moving carrot against chino in right UE, advised strongly to avoid performing this activity. PT-OP-H Neuro Start: 07/09/24 13:22 Freq: Status: Active Protocol: Document 07/10/24 16:07 LRN (Rec: 07/10/24 18:28 LRN [id number]) Sensation Evaluation Gross Sensation Gross Sensation WNL Comments Summary Comments Hyper sensitive in the R shoulder and axillary region. PT-OP-J Posture/Palpation/Skin Start: 07/09/24 13:22 Freq: Status: Active Protocol: Document 07/10/24 16:07 LRN (Rec: 07/10/24 18:28 LRN [id number]) Posture Evaluation Position Sitting Head/C-Spine Posture Forward Head Shoulder Posture (L) Elevated Comments Posture Comments Dowagers hump, mildly straightened T/S spine. Palpation Assessment Location R shoulder Palpation Location Below clavicle, shdr to neck, brachium and forearm. Palpation Findings Soft Tissue Tightness,Muscle Guarding,Tenderness PT-OP-K Range of Motion Start: 07/09/24 13:22 Freq: Status: Active Protocol: Document 07/10/24 16:07 LRN (Rec: 07/10/24 18:28 LRN [id number]) Shoulder Goniometric Range of Motion Shoulder Right Passive Testing Position Standing Flexion 43 Abduction 15 Comments PROM during Codman's exercise. Right Active Testing Position Sitting Comments AROM not appropriate. Left Active Shoulder ROM WFL Yes Testing Position Sitting Flexion 150 Extension 45 Abduction 180 Internal Rotation Behind Back (text) T11 Comments Behind the head: T2 PT-OP-M Strength Start: 07/09/24 13:22 Freq: Status: Active Protocol: Document 07/10/24 16:07 LRN (Rec: 07/10/24 18:28 LRN [id number]) Shoulder Strength Shoulder Manual Muscle Testing Right Comments Pt under restriction for R shoulder AROM. Pt is able to move her R shoulder minimally; therefore strength appears to be 0-1/10. Left Comments Strength is generally 3-4/5 as pt is able to move against gravity and can overcome resistance of velcro to don/ doff her R shoulder brace. Formal assessment will be performed at next visit. PT-OP-Q Treatments Start: 07/09/24 13:22 Freq: Status: Active Protocol: Document 07/20/24 12:57 AB (Rec: 07/20/24 14:40 AB [id number]) Therapeutic Exercises Supine Exercises gripping Side right Reps/Minutes one min Sitting Exercises Table slide Sitting Exercise Name Shoulder flex with slider sheet. Side right Equipment Used Increased time to perform task Reps/Minutes 10x Comments measured throughout, verbal cues R elbow flex Sitting Exercise Name Semi-sit on plinth Passive flexion, active ext Side left Reps/Minutes 10x Comments Verbal and visual cues Standing Exercises Codman's Standing Exercise Name forward bend stretch, then circles Side right Reps/Minutes X10 each Comments Verbal and visual cues, Pt ed importance of PROM allow UE to relax Manual Therapy Treatment Manual Techniques PROM R shoulder Type 1. ER in scap pane 2. flexion in scap plane Comments 12 deg ER in scap plane, flexion in scap plane to 54 deg PT-OP-R Modalities Start: 07/09/24 13:22 Freq: Status: Active Protocol: Document 07/13/24 10:44 LRN (Rec: 07/13/24 12:23 LRN [id number]) Hot Pack/Cold Pack Treatment Cold Pack Location R shoulder Patient Position Sitting Patient Tolerance Good Comments Pt set up with disposable ice pack since pt was not returning home immediately. PT-OP-T Assessment and Plan Start: 07/09/24 13:22 Freq: Status: Active Protocol: Document 07/20/24 12:57 AB (Rec: 07/20/24 14:43 AB [id number]) Physical Therapy Assessment Goals Four Impairment Decreased function Short Term Goal (STG) pt able to strengthen the arm to carry light objects STG Duration 09/07/24 Longterm Goal (LTG) Improve function per UE Quickdash score of 25 or less LTG Duration 10/30/24 Three Impairment Decreased R shoulder strength Short Term Goal (STG) Pt will be able to lift her R arm overhead and rotate at shoulder for independent dressing and personal care ( comb hair). STG Duration 09/07/24 Enrollment Nurse Goal (LTG) Pt will be able to cook simple light wgt meals with R arm, and use both arms for ADLs ( bathing and cooking). LTG Duration 10/30/24 Two Impairment Decreased R shoulder PROM Short Term Goal (STG) Improve R shoulder PROM to 50% of normal (per L shoulder PROM) once cleared for all motions of PROM. 07/20/2024 PROM table slide to 81 deg R shoulder this session , ER PROM to 12 in scap plane and flexion to 54 deg in scap plane. STG Duration 09/07/24 Enrollment Nurse Goal (LTG) Improve R shoulder PROM to 80% -90% of normal ROM (per L shoulder PROM) LTG Duration 10/30/24 One Impairment Lacks appropriate self care HEP Short Term Goal (STG) Pt will be on a home exercise program with the assist of her spouse for PROM exercises and pain managment. 07/13/24: I/S pt in self PROM of elbow and forearm sup/pron , and Active wrist flex/ext. Deep breathing and bowel massage. STG Duration 08/03/24 progressed 07/13/24 Enrollment Nurse Goal (LTG) Pt will be independent in a self care HEP of R shoulder PROM/AROM/strengthening ex's for return to her prior level of function. 07/13/24: I/S pt in self PROM of elbow and forearm sup/pron , and Active wrist flex/ext. Deep breathing and bowel massage. LTG Duration 10/30/24 progressed 07/13/24 Assessment Summary Assessment PROM table slide to 81 deg R shoulder this session, ER PROM to 12 in scap plane and flexion to 54 deg in scap plane. Anabel rates pain 5/10 right shoulder end of session. Physical Therapy Plan Frequency and Duration Frequency of Treatment 2x/Week Duration of treatment (weeks) 16 Plan of Care Start Date 07/10/24 Plan of Care End Date 10/30/24 Next Visit Focus/Plan Next Note Type Treatment Note Next Visit Plan MD hall to mod R RCR protocol (PO 0-3 wks) of approved PROM : R shoulder Flex <90?, AB 30- 40?, ER<20? in scapular plane, IR 0?. PROM elbow flex, AROM hand, wrist, AAROM-none. No shoulder AROM/AAROM, no lifting of objects. Hold periscapular Active mvmts ( retract, infer glide, setting, low row as subscap/teres min rpr as noted in op report of full thickness RC tear). See progression criteria per protocol. Educate/train pt in PROM biceps until s/p 4 wks can start AAROM. Improve PROM of shoulder <20? and flex <90?. No scapular ex until
--- NOTE | 2024-07-25 16:33 | PT.OTN ---
Current Diagnoses Primary osteoarthritis, right shoulder (07/25/24) Superior glenoid labrum lesion of right shoulder, subsequent encounter (07/25/24) Strain of muscle(s) and tendon(s) of the rotator cuff of right shoulder, subsequent encounter (07/25/24) Physical Therapy Treatment Note PT-OP-A Visit Information Start: 07/09/24 13:22 Freq: Status: Active Protocol: Document 07/25/24 11:10 AB (Rec: 07/25/24 12:32 AB [id number]) Out-Patient Physical Therapy Visit Information Visit Information Visit Type Treatment Note Visit Start Time 10:31 Visit Stop Time 12:29 Visit Number 5 Number of MOLDER OFFBEARER Visits 1 Evaluation Information Evaluation Date 07/10/24 Precautions Precautions 07/05/24 P/O arthroscopic R shdr RCR rpr, biceps tenodesis & debridement of extensive superior labral tearing (SLAP tear). 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 No cryotherapy to take due to last time water spilled out. PT-OP-B Current Condition Start: 07/09/24 13:22 Freq: Status: Active Protocol: Document 07/10/24 16:07 LRN (Rec: 07/10/24 18:28 LRN [id number]) Current Condition History of Current Condition Onset Date 07/05/24 Current Complaints R shoulder, neck, biceps and into wrist, and back of shoulder pain History of Current Condition Pt reports 07/05/24 had R rotator cuff repair surgery, biceps repair, and repair of upper shoulder muscles. Not able to verify her surgery as documents not available. Pt states she could lift R arm before the surgery and touch the top of her head, but couldn't reach forward, out to side or backward due to pain (rated 6-7/10). 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 Spouse helps with bathing, dressing, combing hair, and does cooking of meals. Pt is on medications for her pain (reported 8-9/10) and she reports using her ice machine all the time because of the pain. Prior Treatments and Tests No PT prior to surgery, did self exercises. Developmental History Developmental History Pt reports she has always had low back pain since breaking her back in 2014 and wore a cast for 5 months and then soft cast for 2 months. Low Back Pain rated 0-5/10. Treatment Goals Patient/Caregiver Goals Pt goals: - get rotator cuff working and arm working to be able to use both arms for ADLs. - 2 wks post op - able to have PROM - 4 wks - start to lift arm and rotate at shoulder. - 8 wks - lift arm independently for self care of bathing and dressing. -12 wks - pt able to strengthen the arm to carry light objects, comb hair, cook simple meals w/L hand (pt is R handed). Personal Factors Other Personal Factors That May Effect Lives with spouse who can help Therapy/Recovery with home exercises. 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 Long hx of LBP from L3 burst fracture. PT-OP-C Subjective Start: 07/09/24 13:22 Freq: Status: Active Protocol: Document 07/25/24 11:10 AB (Rec: 07/25/24 12:32 AB [id number]) OP-PT Subjective Patient Comments Patient Comments Patient 2 weeks 6 days post op arthroscopic R shdr RCR rpr, biceps tenodesis & debridement of extensive superior labral tearing (SLAP tear). Patient reports she is doing her HEP, comments had a painful weekend especially Wednesday and Wednesday. 56 deg flex PROM in scap plane, ER to 14 deg ER in scap plane R shoulder start of session. PT-OP-H Neuro Start: 07/09/24 13:22 Freq: Status: Active Protocol: Document 07/10/24 16:07 LRN (Rec: 07/10/24 18:28 LRN [id number]) Sensation Evaluation Gross Sensation Gross Sensation WNL Comments Summary Comments Hyper sensitive in the R shoulder and axillary region. PT-OP-J Posture/Palpation/Skin Start: 07/09/24 13:22 Freq: Status: Active Protocol: Document 07/10/24 16:07 LRN (Rec: 07/10/24 18:28 LRN [id number]) Posture Evaluation Position Sitting Head/C-Spine Posture Forward Head Shoulder Posture (L) Elevated Comments Posture Comments Dowagers hump, mildly straightened T/S spine. Palpation Assessment Location R shoulder Palpation Location Below clavicle, shdr to neck, brachium and forearm. Palpation Findings Soft Tissue Tightness,Muscle Guarding,Tenderness PT-OP-K Range of Motion Start: 07/09/24 13:22 Freq: Status: Active Protocol: Document 07/10/24 16:07 LRN (Rec: 07/10/24 18:28 LRN [id number]) Shoulder Goniometric Range of Motion Shoulder Right Passive Testing Position Standing Flexion 43 Abduction 15 Comments PROM during Codman's exercise. Right Active Testing Position Sitting Comments AROM not appropriate. Left Active Shoulder ROM WFL Yes Testing Position Sitting Flexion 150 Extension 45 Abduction 180 Internal Rotation Behind Back (text) T11 Comments Behind the head: T2 PT-OP-M Strength Start: 07/09/24 13:22 Freq: Status: Active Protocol: Document 07/10/24 16:07 LRN (Rec: 07/10/24 18:28 LRN [id number]) Shoulder Strength Shoulder Manual Muscle Testing Right Comments Pt under restriction for R shoulder AROM. Pt is able to move her R shoulder minimally; therefore strength appears to be 0-1/10. Left Comments Strength is generally 3-4/5 as pt is able to move against gravity and can overcome resistance of velcro to don/ doff her R shoulder brace. Formal assessment will be performed at next visit. PT-OP-Q Treatments Start: 07/09/24 13:22 Freq: Status: Active Protocol: Document 07/25/24 11:10 AB (Rec: 07/25/24 12:32 AB [id number]) Therapeutic Exercises Supine Exercises gripping Side right Reps/Minutes one min Sitting Exercises Table slide Sitting Exercise Name Shoulder flex with slider sheet. Side right Equipment Used Increased time to perform task Reps/Minutes 10x seated X 10 standing Comments measured throughout, verbal cues Wrist flex/ext Sitting Exercise Name supine on plinth Side left Reps/Minutes 15x Comments Arm in 20 deg AB R elbow flex Sitting Exercise Name hooklying on plinth Passive flexion, active ext Side left Reps/Minutes 10x Comments Verbal and visual cues Standing Exercises Codman's Standing Exercise Name forward bend stretch, then circles Side right Reps/Minutes X10 each Comments Verbal and visual cues, Pt ed importance of PROM allow UE to relax Manual Therapy Treatment Manual Techniques PROM R shoulder Type 1. ER in scap pane 2. flexion in scap plane Comments 12 deg ER in scap plane, flexion in scap plane to 54 deg PT-OP-R Modalities Start: 07/09/24 13:22 Freq: Status: Active Protocol: Document 07/25/24 11:10 AB (Rec: 07/25/24 12:32 AB [id number]) Hot Pack/Cold Pack Treatment Cold Pack Location R shoulder Patient Position Hooklying Patient Tolerance Good Comments 10 min PT-OP-T Assessment and Plan Start: 07/09/24 13:22 Freq: Status: Active Protocol: Document 07/25/24 11:10 AB (Rec: 07/25/24 12:32 AB [id number]) Physical Therapy Assessment Goals Four Impairment Decreased function Short Term Goal (STG) pt able to strengthen the arm to carry light objects STG Duration 09/07/24 Fdc Goal (LTG) Improve function per UE Quickdash score of 25 or less LTG Duration 10/30/24 Three Impairment Decreased R shoulder strength Short Term Goal (STG) Pt will be able to lift her R arm overhead and rotate at shoulder for independent dressing and personal care ( comb hair). STG Duration 09/07/24 Improvement Rn Goal (LTG) Pt will be able to cook simple light wgt meals with R arm, and use both arms for ADLs ( bathing and cooking). LTG Duration 10/30/24 Two Impairment Decreased R shoulder PROM Short Term Goal (STG) Improve R shoulder PROM to 50% of normal (per L shoulder PROM) once cleared for all motions of PROM. 07/20/2024 PROM table slide to 81 deg R shoulder this session , ER PROM to 12 in scap plane and flexion to 54 deg in scap plane. STG Duration 09/07/24 Fdc Goal (LTG) Improve R shoulder PROM to 80% -90% of normal ROM (per L shoulder PROM) LTG Duration 10/30/24 One Impairment Lacks appropriate self care HEP Short Term Goal (STG) Pt will be on a home exercise program with the assist of her spouse for PROM exercises and pain managment. 07/13/24: I/S pt in self PROM of elbow and forearm sup/pron , and Active wrist flex/ext. Deep breathing and bowel massage. 07/26/2023 Patient reports performing HEP STG Duration 08/03/24 progressed 07/13/24 Fdc Goal (LTG) Pt will be independent in a self care HEP of R shoulder PROM/AROM/strengthening ex's for return to her prior level of function. 07/13/24: I/S pt in self PROM of elbow and forearm sup/pron , and Active wrist flex/ext. Deep breathing and bowel massage. LTG Duration 10/30/24 progressed 07/13/24 Assessment Summary Assessment PROM ER in scap plane to 18 deg flexion to 62 deg in scap plane, during table slide flexion to 87 deg PROM with slider sheet R UE. Anabel rates pain R shoulder. Anabel rates R shoulder pain 09/02 end of session. Physical Therapy Plan Frequency and Duration Frequency of Treatment 2x/Week Duration of treatment (weeks) 16 Plan of Care Start Date 07/10/24 Plan of Care End Date 10/30/24 Next Visit Focus/Plan Next Note Type Treatment Note Next Visit Plan MD hall to mod R RCR protocol (PO 0-3 wks) of approved PROM : R shoulder Flex <90?, AB 30- 40?, ER<20? in scapular plane, IR 0?. PROM elbow flex, AROM hand, wrist, AAROM-none. No shoulder AROM/AAROM, no lifting of objects. Hold periscapular Active mvmts ( retract, infer glide, setting, low row as subscap/teres min rpr as noted in op report of full thickness RC tear). See progression criteria per protocol. Educate/train pt in PROM biceps until s/p 4 wks (2024)can start AAROM. Improve PROM of shoulder <20? and flex <90?. No scapular ex until
--- NOTE | 2024-07-27 12:40 | PT.OTN ---
Current Diagnoses Primary osteoarthritis, right shoulder (07/27/24) Superior glenoid labrum lesion of right shoulder, subsequent encounter (07/27/24) Strain of muscle(s) and tendon(s) of the rotator cuff of right shoulder, subsequent encounter (07/27/24) Physical Therapy Treatment Note PT-OP-A Visit Information Start: 07/09/24 13:22 Freq: Status: Active Protocol: Document 07/27/24 10:44 AB (Rec: 07/27/24 12:40 AB [id number]) Out-Patient Physical Therapy Visit Information Visit Information Visit Type Treatment Note Visit Start Time 11:34 Visit Stop Time 12:30 Visit Number 6 Number of PSYCHIATRIC SOCIAL WORKER SUPERVISOR Visits 3 Evaluation Information Evaluation Date 07/10/24 Precautions Precautions 07/05/24 P/O arthroscopic R shdr RCR rpr, biceps tenodesis & debridement of extensive superior labral tearing (SLAP tear). 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 No cryotherapy to take due to last time water spilled out. PT-OP-B Current Condition Start: 07/09/24 13:22 Freq: Status: Active Protocol: Document 07/10/24 16:07 LRN (Rec: 07/10/24 18:28 LRN [id number]) Current Condition History of Current Condition Onset Date 07/05/24 Current Complaints R shoulder, neck, biceps and into wrist, and back of shoulder pain History of Current Condition Pt reports 07/05/24 had R rotator cuff repair surgery, biceps repair, and repair of upper shoulder muscles. Not able to verify her surgery as documents not available. Pt states she could lift R arm before the surgery and touch the top of her head, but couldn't reach forward, out to side or backward due to pain (rated 6-7/10). 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 Spouse helps with bathing, dressing, combing hair, and does cooking of meals. Pt is on medications for her pain (reported 8-9/10) and she reports using her ice machine all the time because of the pain. Prior Treatments and Tests No PT prior to surgery, did self exercises. Developmental History Developmental History Pt reports she has always had low back pain since breaking her back in 2014 and wore a cast for 5 months and then soft cast for 2 months. Low Back Pain rated 0-5/10. Treatment Goals Patient/Caregiver Goals Pt goals: - get rotator cuff working and arm working to be able to use both arms for ADLs. - 2 wks post op - able to have PROM - 4 wks - start to lift arm and rotate at shoulder. - 8 wks - lift arm independently for self care of bathing and dressing. -12 wks - pt able to strengthen the arm to carry light objects, comb hair, cook simple meals w/L hand (pt is R handed). Personal Factors Other Personal Factors That May Effect Lives with spouse who can help Therapy/Recovery with home exercises. 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 Long hx of LBP from L3 burst fracture. PT-OP-C Subjective Start: 07/09/24 13:22 Freq: Status: Active Protocol: Document 07/27/24 10:44 AB (Rec: 07/27/24 12:40 AB [id number]) OP-PT Subjective Patient Comments Patient Comments Patient reports doing much better, comments she has returned to the recliner for sleeping. Anabel rates pain 4/ 10 R shoulder start of session . Patient comments yesterday, reports table slides were more difficult. 0 deg ER in scap plane R shoulder start of session, reports feeling discomfort in shoulder positioning to measured 4-5/10 pain, flexion to 37 deg in scap plane PROM PT-OP-H Neuro Start: 07/09/24 13:22 Freq: Status: Active Protocol: Document 07/10/24 16:07 LRN (Rec: 07/10/24 18:28 LRN [id number]) Sensation Evaluation Gross Sensation Gross Sensation WNL Comments Summary Comments Hyper sensitive in the R shoulder and axillary region. PT-OP-J Posture/Palpation/Skin Start: 07/09/24 13:22 Freq: Status: Active Protocol: Document 07/10/24 16:07 LRN (Rec: 07/10/24 18:28 LRN [id number]) Posture Evaluation Position Sitting Head/C-Spine Posture Forward Head Shoulder Posture (L) Elevated Comments Posture Comments Dowagers hump, mildly straightened T/S spine. Palpation Assessment Location R shoulder Palpation Location Below clavicle, shdr to neck, brachium and forearm. Palpation Findings Soft Tissue Tightness,Muscle Guarding,Tenderness PT-OP-K Range of Motion Start: 07/09/24 13:22 Freq: Status: Active Protocol: Document 07/10/24 16:07 LRN (Rec: 07/10/24 18:28 LRN [id number]) Shoulder Goniometric Range of Motion Shoulder Right Passive Testing Position Standing Flexion 43 Abduction 15 Comments PROM during Codman's exercise. Right Active Testing Position Sitting Comments AROM not appropriate. Left Active Shoulder ROM WFL Yes Testing Position Sitting Flexion 150 Extension 45 Abduction 180 Internal Rotation Behind Back (text) T11 Comments Behind the head: T2 PT-OP-M Strength Start: 07/09/24 13:22 Freq: Status: Active Protocol: Document 07/10/24 16:07 LRN (Rec: 07/10/24 18:28 LRN [id number]) Shoulder Strength Shoulder Manual Muscle Testing Right Comments Pt under restriction for R shoulder AROM. Pt is able to move her R shoulder minimally; therefore strength appears to be 0-1/10. Left Comments Strength is generally 3-4/5 as pt is able to move against gravity and can overcome resistance of velcro to don/ doff her R shoulder brace. Formal assessment will be performed at next visit. PT-OP-Q Treatments Start: 07/09/24 13:22 Freq: Status: Active Protocol: Document 07/27/24 10:44 AB (Rec: 07/27/24 12:40 AB [id number]) Therapeutic Exercises Sitting Exercises Table slide Sitting Exercise Name Shoulder flex with slider sheet. Side right Reps/Minutes X10 standing Comments measured throughout, verbal cues Wrist flex/ext Sitting Exercise Name supine on plinth Side left Reps/Minutes 15x Comments Arm in 20 deg AB R elbow flex Sitting Exercise Name standing Side left Reps/Minutes 10x Comments Verbal and visual cues Standing Exercises Codman's Standing Exercise Name forward bend stretch, then circles Side right Reps/Minutes X30 each Comments Verbal and visual cues, Pt ed importance of PROM allow UE to relax Manual Therapy Treatment Consent Patient gave verbal consent for manual Yes treatment Manual Techniques PROM R shoulder Type 1. ER in scap pane 2. flexion in scap plane Comments Monitored for pain and guarding PT-OP-R Modalities Start: 07/09/24 13:22 Freq: Status: Active Protocol: Document 04/03/25 10:44 AB (Rec: 07/27/24 12:40 AB [id number]) Hot Pack/Cold Pack Treatment Cold Pack Location R shoulder Patient Position Hooklying Patient Tolerance Good Comments 10 min PT-OP-T Assessment and Plan Start: 07/09/24 13:22 Freq: Status: Active Protocol: Document 07/27/24 10:44 AB (Rec: 07/27/24 12:40 AB [id number]) Physical Therapy Assessment Goals Four Impairment Decreased function Short Term Goal (STG) pt able to strengthen the arm to carry light objects STG Duration 09/07/24 Snf Goal (LTG) Improve function per UE Quickdash score of 25 or less LTG Duration 10/30/24 Three Impairment Decreased R shoulder strength Short Term Goal (STG) Pt will be able to lift her R arm overhead and rotate at shoulder for independent dressing and personal care ( comb hair). STG Duration 09/07/24 Snf Goal (LTG) Pt will be able to cook simple light wgt meals with R arm, and use both arms for ADLs ( bathing and cooking). LTG Duration 10/30/24 Two Impairment Decreased R shoulder PROM Short Term Goal (STG) Improve R shoulder PROM to 50% of normal (per L shoulder PROM) once cleared for all motions of PROM. 07/20/2024 PROM table slide to 81 deg R shoulder this session , ER PROM to 12 in scap plane and flexion to 54 deg in scap plane. STG Duration 09/07/24 Stone Carver Goal (LTG) Improve R shoulder PROM to 80% -90% of normal ROM (per L shoulder PROM) LTG Duration 10/30/24 One Impairment Lacks appropriate self care HEP Short Term Goal (STG) Pt will be on a home exercise program with the assist of her spouse for PROM exercises and pain managment. 07/13/24: I/S pt in self PROM of elbow and forearm sup/pron , and Active wrist flex/ext. Deep breathing and bowel massage. 07/26/2023 Patient reports performing HEP STG Duration 08/03/24 progressed 07/13/24 Stone Carver Goal (LTG) Pt will be independent in a self care HEP of R shoulder PROM/AROM/strengthening ex's for return to her prior level of function. 07/13/24: I/S pt in self PROM of elbow and forearm sup/pron , and Active wrist flex/ext. Deep breathing and bowel massage. LTG Duration 10/30/24 progressed 07/13/24 Assessment Summary Assessment PROM R shoulder flexion 53 deg , 16 deg ER both in scap plane , increased VC for relaxing muscles and breathing from diaphragm this session. Table slide right UE to 86 deg this session. Physical Therapy Plan Frequency and Duration Frequency of Treatment 2x/Week Duration of treatment (weeks) 16 Plan of Care Start Date 07/10/24 Plan of Care End Date 10/30/24 Next Visit Focus/Plan Next Note Type Treatment Note Next Visit Plan MD hall to mod R RCR protocol (PO 0-3 wks) of approved PROM : R shoulder Flex <90?, AB 30- 40?, ER<20? in scapular plane, IR 0?. PROM elbow flex, AROM hand, wrist, AAROM-none. No shoulder AROM/AAROM, no lifting of objects. Hold periscapular Active mvmts ( retract, infer glide, setting, low row as subscap/teres min rpr as noted in op report of full thickness RC tear). See progression criteria per protocol. Educate/train pt in PROM biceps until s/p 4 wks (2024)can start AAROM. cane flexion, ER with cane, washcloth press, sidelying elevation to 90, Row on physiHauteLook and shoulder extension on physionball pending meeting criteria to progress. Improve PROM of shoulder <20? and flex <90?. No scapular ex until
--- NOTE | 2024-07-27 12:43 | PT.OTN ---
Current Diagnoses Primary osteoarthritis, right shoulder (07/27/24) Superior glenoid labrum lesion of right shoulder, subsequent encounter (07/27/24) Strain of muscle(s) and tendon(s) of the rotator cuff of right shoulder, subsequent encounter (07/27/24) Physical Therapy Treatment Note PT-OP-A Visit Information Start: 07/09/24 13:22 Freq: Status: Active Protocol: Document 07/27/24 10:44 AB (Rec: 07/27/24 12:40 AB [id number]) Out-Patient Physical Therapy Visit Information Visit Information Visit Type Treatment Note Visit Start Time 11:34 Visit Stop Time 12:30 Visit Number 6 Number of ARTIFICIAL TEETH INSPECTOR Visits 3 Evaluation Information Evaluation Date 07/10/24 Precautions Precautions 07/05/24 P/O arthroscopic R shdr RCR rpr, biceps tenodesis & debridement of extensive superior labral tearing (SLAP tear). 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 No cryotherapy to take due to last time water spilled out. PT-OP-B Current Condition Start: 07/09/24 13:22 Freq: Status: Active Protocol: Document 07/10/24 16:07 LRN (Rec: 07/10/24 18:28 LRN [id number]) Current Condition History of Current Condition Onset Date 07/05/24 Current Complaints R shoulder, neck, biceps and into wrist, and back of shoulder pain History of Current Condition Pt reports 07/05/24 had R rotator cuff repair surgery, biceps repair, and repair of upper shoulder muscles. Not able to verify her surgery as documents not available. Pt states she could lift R arm before the surgery and touch the top of her head, but couldn't reach forward, out to side or backward due to pain (rated 6-7/10). 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 Spouse helps with bathing, dressing, combing hair, and does cooking of meals. Pt is on medications for her pain (reported 8-9/10) and she reports using her ice machine all the time because of the pain. Prior Treatments and Tests No PT prior to surgery, did self exercises. Developmental History Developmental History Pt reports she has always had low back pain since breaking her back in 2014 and wore a cast for 5 months and then soft cast for 2 months. Low Back Pain rated 0-5/10. Treatment Goals Patient/Caregiver Goals Pt goals: - get rotator cuff working and arm working to be able to use both arms for ADLs. - 2 wks post op - able to have PROM - 4 wks - start to lift arm and rotate at shoulder. - 8 wks - lift arm independently for self care of bathing and dressing. -12 wks - pt able to strengthen the arm to carry light objects, comb hair, cook simple meals w/L hand (pt is R handed). Personal Factors Other Personal Factors That May Effect Lives with spouse who can help Therapy/Recovery with home exercises. 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 Long hx of LBP from L3 burst fracture. PT-OP-C Subjective Start: 07/09/24 13:22 Freq: Status: Active Protocol: Document 07/27/24 10:44 AB (Rec: 07/27/24 12:40 AB [id number]) OP-PT Subjective Patient Comments Patient Comments Patient reports doing much better, comments she has returned to the recliner for sleeping. Anabel rates pain 4/ 10 R shoulder start of session . Patient comments yesterday, reports table slides were more difficult. 0 deg ER in scap plane R shoulder start of session, reports feeling discomfort in shoulder positioning to measured 4-5/10 pain, flexion to 37 deg in scap plane PROM PT-OP-H Neuro Start: 07/09/24 13:22 Freq: Status: Active Protocol: Document 07/10/24 16:07 LRN (Rec: 07/10/24 18:28 LRN [id number]) Sensation Evaluation Gross Sensation Gross Sensation WNL Comments Summary Comments Hyper sensitive in the R shoulder and axillary region. PT-OP-J Posture/Palpation/Skin Start: 07/09/24 13:22 Freq: Status: Active Protocol: Document 07/10/24 16:07 LRN (Rec: 07/10/24 18:28 LRN [id number]) Posture Evaluation Position Sitting Head/C-Spine Posture Forward Head Shoulder Posture (L) Elevated Comments Posture Comments Dowagers hump, mildly straightened T/S spine. Palpation Assessment Location R shoulder Palpation Location Below clavicle, shdr to neck, brachium and forearm. Palpation Findings Soft Tissue Tightness,Muscle Guarding,Tenderness PT-OP-K Range of Motion Start: 07/09/24 13:22 Freq: Status: Active Protocol: Document 07/10/24 16:07 LRN (Rec: 07/10/24 18:28 LRN [id number]) Shoulder Goniometric Range of Motion Shoulder Right Passive Testing Position Standing Flexion 43 Abduction 15 Comments PROM during Codman's exercise. Right Active Testing Position Sitting Comments AROM not appropriate. Left Active Shoulder ROM WFL Yes Testing Position Sitting Flexion 150 Extension 45 Abduction 180 Internal Rotation Behind Back (text) T11 Comments Behind the head: T2 PT-OP-M Strength Start: 07/09/24 13:22 Freq: Status: Active Protocol: Document 07/10/24 16:07 LRN (Rec: 07/10/24 18:28 LRN [id number]) Shoulder Strength Shoulder Manual Muscle Testing Right Comments Pt under restriction for R shoulder AROM. Pt is able to move her R shoulder minimally; therefore strength appears to be 0-1/10. Left Comments Strength is generally 3-4/5 as pt is able to move against gravity and can overcome resistance of velcro to don/ doff her R shoulder brace. Formal assessment will be performed at next visit. PT-OP-Q Treatments Start: 07/09/24 13:22 Freq: Status: Active Protocol: Document 07/27/24 10:44 AB (Rec: 07/27/24 12:40 AB [id number]) Therapeutic Exercises Sitting Exercises Table slide Sitting Exercise Name Shoulder flex with slider sheet. Side right Reps/Minutes X10 standing Comments measured throughout, verbal cues Wrist flex/ext Sitting Exercise Name supine on plinth Side left Reps/Minutes 15x Comments Arm in 20 deg AB R elbow flex Sitting Exercise Name standing Side left Reps/Minutes 10x Comments Verbal and visual cues Standing Exercises Codman's Standing Exercise Name forward bend stretch, then circles Side right Reps/Minutes X30 each Comments Verbal and visual cues, Pt ed importance of PROM allow UE to relax Manual Therapy Treatment Consent Patient gave verbal consent for manual Yes treatment Manual Techniques PROM R shoulder Type 1. ER in scap pane 2. flexion in scap plane Comments Monitored for pain and guarding PT-OP-R Modalities Start: 07/09/24 13:22 Freq: Status: Active Protocol: Document 04/03/25 10:44 AB (Rec: 07/27/24 12:40 AB [id number]) Hot Pack/Cold Pack Treatment Cold Pack Location R shoulder Patient Position Hooklying Patient Tolerance Good Comments 10 min PT-OP-T Assessment and Plan Start: 07/09/24 13:22 Freq: Status: Active Protocol: Document 07/27/24 10:44 AB (Rec: 07/27/24 12:40 AB [id number]) Physical Therapy Assessment Goals Four Impairment Decreased function Short Term Goal (STG) pt able to strengthen the arm to carry light objects STG Duration 09/07/24 Half-Way Goal (LTG) Improve function per UE Quickdash score of 25 or less LTG Duration 10/30/24 Three Impairment Decreased R shoulder strength Short Term Goal (STG) Pt will be able to lift her R arm overhead and rotate at shoulder for independent dressing and personal care ( comb hair). STG Duration 09/07/24 Half-Way Goal (LTG) Pt will be able to cook simple light wgt meals with R arm, and use both arms for ADLs ( bathing and cooking). LTG Duration 10/30/24 Two Impairment Decreased R shoulder PROM Short Term Goal (STG) Improve R shoulder PROM to 50% of normal (per L shoulder PROM) once cleared for all motions of PROM. 07/20/2024 PROM table slide to 81 deg R shoulder this session , ER PROM to 12 in scap plane and flexion to 54 deg in scap plane. STG Duration 09/07/24 Trimmer Hand Goal (LTG) Improve R shoulder PROM to 80% -90% of normal ROM (per L shoulder PROM) LTG Duration 10/30/24 One Impairment Lacks appropriate self care HEP Short Term Goal (STG) Pt will be on a home exercise program with the assist of her spouse for PROM exercises and pain managment. 07/13/24: I/S pt in self PROM of elbow and forearm sup/pron , and Active wrist flex/ext. Deep breathing and bowel massage. 07/26/2023 Patient reports performing HEP STG Duration 08/03/24 progressed 07/13/24 Trimmer Hand Goal (LTG) Pt will be independent in a self care HEP of R shoulder PROM/AROM/strengthening ex's for return to her prior level of function. 07/13/24: I/S pt in self PROM of elbow and forearm sup/pron , and Active wrist flex/ext. Deep breathing and bowel massage. LTG Duration 10/30/24 progressed 07/13/24 Assessment Summary Assessment PROM R shoulder flexion 53 deg , 16 deg ER both in scap plane , increased VC for relaxing muscles and breathing from diaphragm this session. Table slide right UE to 86 deg this session. Physical Therapy Plan Frequency and Duration Frequency of Treatment 2x/Week Duration of treatment (weeks) 16 Plan of Care Start Date 07/10/24 Plan of Care End Date 10/30/24 Next Visit Focus/Plan Next Note Type Treatment Note Next Visit Plan MD hall to mod R RCR protocol (PO 0-3 wks) of approved PROM : R shoulder Flex <90?, AB 30- 40?, ER<20? in scapular plane, IR 0?. PROM elbow flex, AROM hand, wrist, AAROM-none. No shoulder AROM/AAROM, no lifting of objects. Hold periscapular Active mvmts ( retract, infer glide, setting, low row as subscap/teres min rpr as noted in op report of full thickness RC tear). See progression criteria per protocol. Educate/train pt in PROM biceps until s/p 4 wks (2024)can start AAROM. cane flexion, ER with cane, washcloth press, sidelying elevation to 90, Row on physiedupristine and shoulder extension on physionball pending meeting criteria to progress. Improve PROM of shoulder <20? and flex <90?. No scapular ex until
--- NOTE | 2024-07-31 16:56 | PT.OTN ---
Current Diagnoses Primary osteoarthritis, right shoulder (07/31/24) Superior glenoid labrum lesion of right shoulder, subsequent encounter (07/31/24) Strain of muscle(s) and tendon(s) of the rotator cuff of right shoulder, subsequent encounter (07/31/24) Physical Therapy Treatment Note PT-OP-A Visit Information Start: 07/09/24 13:22 Freq: Status: Active Protocol: Document 07/31/24 13:12 LRN (Rec: 07/31/24 13:50 LRN Laptop) Out-Patient Physical Therapy Visit Information Visit Information Visit Type Treatment Note Visit Note Next MD appt in August. Visit Start Time 13:12 Visit Stop Time 13:50 Visit Number 7 Evaluation Information Evaluation Date 07/10/24 Precautions Precautions 07/05/24 P/O arthroscopic R shdr RCR rpr, biceps tenodesis & debridement of extensive superior labral tearing (SLAP tear). 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 No cryotherapy to take due to last time water spilled out. PT-OP-B Current Condition Start: 07/09/24 13:22 Freq: Status: Active Protocol: Document 07/10/24 16:07 LRN (Rec: 07/10/24 18:28 LRN [id number]) Current Condition History of Current Condition Onset Date 07/05/24 Current Complaints R shoulder, neck, biceps and into wrist, and back of shoulder pain History of Current Condition Pt reports 07/05/24 had R rotator cuff repair surgery, biceps repair, and repair of upper shoulder muscles. Not able to verify her surgery as documents not available. Pt states she could lift R arm before the surgery and touch the top of her head, but couldn't reach forward, out to side or backward due to pain (rated 6-7/10). 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 Spouse helps with bathing, dressing, combing hair, and does cooking of meals. Pt is on medications for her pain (reported 8-9/10) and she reports using her ice machine all the time because of the pain. Prior Treatments and Tests No PT prior to surgery, did self exercises. Developmental History Developmental History Pt reports she has always had low back pain since breaking her back in 2014 and wore a cast for 5 months and then soft cast for 2 months. Low Back Pain rated 0-5/10. Treatment Goals Patient/Caregiver Goals Pt goals: - get rotator cuff working and arm working to be able to use both arms for ADLs. - 2 wks post op - able to have PROM - 4 wks - start to lift arm and rotate at shoulder. - 8 wks - lift arm independently for self care of bathing and dressing. -12 wks - pt able to strengthen the arm to carry light objects, comb hair, cook simple meals w/L hand (pt is R handed). Personal Factors Other Personal Factors That May Effect Lives with spouse who can help Therapy/Recovery with home exercises. 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 Long hx of LBP from L3 burst fracture. PT-OP-C Subjective Start: 07/09/24 13:22 Freq: Status: Active Protocol: Document 07/31/24 13:12 LRN (Rec: 07/31/24 13:50 LRN Laptop) OP-PT Subjective Patient Comments Patient Comments 6 wks post op. States she woke 07/27/24 w/o R shoulder pain, but while she was putting on a thin sweater she twisted the arm and felt pain the rest of the weekend. States she is very sore in R shoulder, but also in the opposite (L shdr), because of her having to remove the sling . C/O R arm itching. PT-OP-H Neuro Start: 07/09/24 13:22 Freq: Status: Active Protocol: Document 07/10/24 16:07 LRN (Rec: 07/10/24 18:28 LRN [id number]) Sensation Evaluation Gross Sensation Gross Sensation WNL Comments Summary Comments Hyper sensitive in the R shoulder and axillary region. PT-OP-J Posture/Palpation/Skin Start: 07/09/24 13:22 Freq: Status: Active Protocol: Document 07/10/24 16:07 LRN (Rec: 07/10/24 18:28 LRN [id number]) Posture Evaluation Position Sitting Head/C-Spine Posture Forward Head Shoulder Posture (L) Elevated Comments Posture Comments Dowagers hump, mildly straightened T/S spine. Palpation Assessment Location R shoulder Palpation Location Below clavicle, shdr to neck, brachium and forearm. Palpation Findings Soft Tissue Tightness,Muscle Guarding,Tenderness PT-OP-K Range of Motion Start: 07/09/24 13:22 Freq: Status: Active Protocol: Document 07/31/24 13:12 LRN (Rec: 07/31/24 13:50 LRN Laptop) Shoulder Goniometric Range of Motion Shoulder Right Passive Shoulder ROM WFL No Testing Position Sitting Flexion 80 Abduction 20 Comments Sitting Shoulder flex is 64 deg's. PT-OP-M Strength Start: 07/09/24 13:22 Freq: Status: Active Protocol: Document 07/10/24 16:07 LRN (Rec: 07/10/24 18:28 LRN [id number]) Shoulder Strength Shoulder Manual Muscle Testing Right Comments Pt under restriction for R shoulder AROM. Pt is able to move her R shoulder minimally; therefore strength appears to be 0-1/10. Left Comments Strength is generally 3-4/5 as pt is able to move against gravity and can overcome resistance of velcro to don/ doff her R shoulder brace. Formal assessment will be performed at next visit. PT-OP-Q Treatments Start: 07/09/24 13:22 Freq: Status: Active Protocol: Document 07/31/24 13:12 LRN (Rec: 07/31/24 13:50 LRN Laptop) Therapeutic Exercises Sitting Exercises Table slide Sitting Exercise Name Shoulder flex with slider sheet. 64 deg's. Side right Reps/Minutes X10 standing Comments Pain with mvmt, pt cued not to push into pain & hold stretch . Wrist flex/ext Sitting Exercise Name supine on plinth Side right Reps/Minutes 15x Comments Arm in 0 deg's & 20 deg AB Sup/Pron Sitting Exercise Name Active sup/pron, arm in neutral Side right Reps/Minutes 15x Comments Arm in 0 deg's & 20 deg AB R elbow flex Sitting Exercise Name Sitting Assisted flex Side left Reps/Minutes 10x Comments Verbal and visual cues Standing Exercises Codman's Standing Exercise Name forward bend stretch, then circles Side right Reps/Minutes X30 each (12') Comments Verbal and visual cues, Pt ed importance of PROM allow UE to relax PT-OP-R Modalities Start: 07/09/24 13:22 Freq: Status: Active Protocol: Document 07/27/24 10:44 AB (Rec: 07/27/24 12:40 AB [id number]) Hot Pack/Cold Pack Treatment Cold Pack Location R shoulder Patient Position Hooklying Patient Tolerance Good Comments 10 min PT-OP-T Assessment and Plan Start: 07/09/24 13:22 Freq: Status: Active Protocol: Document 07/31/24 13:12 LRN (Rec: 07/31/24 13:50 LRN Laptop) Physical Therapy Assessment Goals Four Impairment Decreased function Short Term Goal (STG) pt able to strengthen the arm to carry light objects STG Duration 09/07/24 Group Home Goal (LTG) Improve function per UE Quickdash score of 25 or less LTG Duration 10/30/24 Three Impairment Decreased R shoulder strength Short Term Goal (STG) Pt will be able to lift her R arm overhead and rotate at shoulder for independent dressing and personal care ( comb hair). STG Duration 09/07/24 Computer Hardware Developer Goal (LTG) Pt will be able to cook simple light wgt meals with R arm, and use both arms for ADLs ( bathing and cooking). LTG Duration 10/30/24 Two Impairment Decreased R shoulder PROM Short Term Goal (STG) Improve R shoulder PROM to 50% of normal (per L shoulder PROM) once cleared for all motions of PROM. 07/20/2024 PROM table slide to 81 deg R shoulder this session , ER PROM to 12 in scap plane and flexion to 54 deg in scap plane. STG Duration 09/07/24 Group Home Goal (LTG) Improve R shoulder PROM to 80% -90% of normal ROM (per L shoulder PROM) LTG Duration 10/30/24 One Impairment Lacks appropriate self care HEP Short Term Goal (STG) Pt will be on a home exercise program with the assist of her spouse for PROM exercises and pain managment. 07/13/24: I/S pt in self PROM of elbow and forearm sup/pron , and Active wrist flex/ext. Deep breathing and bowel massage. 07/26/2023 Patient reports performing HEP STG Duration 08/03/24 progressed 07/13/24 Group Home Goal (LTG) Pt will be independent in a self care HEP of R shoulder PROM/AROM/strengthening ex's for return to her prior level of function. 07/13/24: I/S pt in self PROM of elbow and forearm sup/pron , and Active wrist flex/ext. Deep breathing and bowel massage. LTG Duration 10/30/24 progressed 07/13/24 Assessment Summary Assessment Pt is 3 wks + 5 days post-op ( 07/05/24), R RC rpr/biceps tenodesis/subacromial bursectomy/extensive SLAP tear debridement (superior labral A-P). Today, pt presents with set back of pain while trying to don a light sweater over the weekend causing discomfort and fear of reinjury to her repair, PROM was done very slowly; therefore will probably not be able to progress next visit to phase 2 (4-6 wk). She is more limited in tolerable sitting PROM flex table slide (64?), but shows good tolerance for passive supine flex (80?) & AB (20?), passive ER not assessed due to time constraints. The pt's deltoid and lateral triceps are very tight and tender, pt to do self STM as tolerated. She will need to slowly return to prior level to meet goals of phase 1 before moving to phase 2. Pt is able to activate her intrascapular muscles w/o onset of R shoulder pain. Physical Therapy Plan Frequency and Duration Frequency of Treatment 2x/Week Duration of treatment (weeks) 16 Plan of Care Start Date 07/10/24 Plan of Care End Date 10/30/24 Other Referrals/Consults Referrals/Consults Recommended Msg left on voicemail at referring provider clinic, requesting information of the rotator cuff muscles involved in her repair in order to progress pt per protocol. Next Visit Focus/Plan Next Note Type Treatment Note Next Visit Plan Next: Assess PROM for ER in sit & supine and recheck for meeting goals of phase 1 before advancing to phase 2. Waiting for response to voicemail request for information regarding muscles involved in repair of her R rotator cuff. MD hall to mod R RCR protocol (PO 0-3 wks) of approved PROM : R shoulder Flex <90?, AB 30- 40?, ER<20? in scapular plane, IR 0?. PROM elbow flex, AROM hand, wrist, AAROM-none. No shoulder AROM/AAROM, no lifting of objects. Hold periscapular Active mvmts ( retract, infer glide, setting, low row as subscap/teres min rpr as noted in op report of full thickness RC tear). See progression criteria per protocol. Educate/train pt in PROM biceps until s/p 4 wks if criteria met for progression ( 08/02/2024) can start AAROM. cane flexion, ER with cane, washcloth press, sidelying elevation to 90, Row on physiPriztagll and shoulder extension on physionball pending meeting criteria to progress. Improve PROM of shoulder <20? and flex <90?. No scapular ex until
--- NOTE | 2024-08-08 18:33 | PT.OTN ---
Current Diagnoses Primary osteoarthritis, right shoulder (08/07/24) Superior glenoid labrum lesion of right shoulder, subsequent encounter (08/07/24) Strain of muscle(s) and tendon(s) of the rotator cuff of right shoulder, subsequent encounter (08/07/24) Physical Therapy Treatment Note PT-OP-A Visit Information Start: 07/09/24 13:22 Freq: Status: Active Protocol: Document 08/07/24 13:02 LRN (Rec: 08/07/24 13:46 LRN Laptop) Out-Patient Physical Therapy Visit Information Visit Information Visit Type Treatment Note Visit Note Next MD appt in August. Visit Start Time 13:02 Visit Stop Time 13:44 Visit Number 8 Evaluation Information Evaluation Date 07/10/24 Precautions Precautions 07/05/24 P/O arthroscopic R shdr RCR rpr, biceps tenodesis & debridement of extensive superior labral tearing (SLAP tear). 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 No cryotherapy to take due to last time water spilled out. PT-OP-B Current Condition Start: 07/09/24 13:22 Freq: Status: Active Protocol: Document 07/10/24 16:07 LRN (Rec: 07/10/24 18:28 LRN [id number]) Current Condition History of Current Condition Onset Date 07/05/24 Current Complaints R shoulder, neck, biceps and into wrist, and back of shoulder pain History of Current Condition Pt reports 07/05/24 had R rotator cuff repair surgery, biceps repair, and repair of upper shoulder muscles. Not able to verify her surgery as documents not available. Pt states she could lift R arm before the surgery and touch the top of her head, but couldn't reach forward, out to side or backward due to pain (rated 6-7/10). 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 Spouse helps with bathing, dressing, combing hair, and does cooking of meals. Pt is on medications for her pain (reported 8-9/10) and she reports using her ice machine all the time because of the pain. Prior Treatments and Tests No PT prior to surgery, did self exercises. Developmental History Developmental History Pt reports she has always had low back pain since breaking her back in 2014 and wore a cast for 5 months and then soft cast for 2 months. Low Back Pain rated 0-5/10. Treatment Goals Patient/Caregiver Goals Pt goals: - get rotator cuff working and arm working to be able to use both arms for ADLs. - 2 wks post op - able to have PROM - 4 wks - start to lift arm and rotate at shoulder. - 8 wks - lift arm independently for self care of bathing and dressing. -12 wks - pt able to strengthen the arm to carry light objects, comb hair, cook simple meals w/L hand (pt is R handed). Personal Factors Other Personal Factors That May Effect Lives with spouse who can help Therapy/Recovery with home exercises. 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 Long hx of LBP from L3 burst fracture. PT-OP-C Subjective Start: 07/09/24 13:22 Freq: Status: Active Protocol: Document 08/07/24 13:02 LRN (Rec: 08/07/24 13:46 LRN Laptop) OP-PT Subjective Patient Comments Patient Comments States she has been doing her ex's and the shoulder retraction exer is hard. States she is not taking one of her stronger pain medication because of addiction fear. PT-OP-H Neuro Start: 07/09/24 13:22 Freq: Status: Active Protocol: Document 07/10/24 16:07 LRN (Rec: 07/10/24 18:28 LRN [id number]) Sensation Evaluation Gross Sensation Gross Sensation WNL Comments Summary Comments Hyper sensitive in the R shoulder and axillary region. PT-OP-J Posture/Palpation/Skin Start: 07/09/24 13:22 Freq: Status: Active Protocol: Document 07/10/24 16:07 LRN (Rec: 07/10/24 18:28 LRN [id number]) Posture Evaluation Position Sitting Head/C-Spine Posture Forward Head Shoulder Posture (L) Elevated Comments Posture Comments Dowagers hump, mildly straightened T/S spine. Palpation Assessment Location R shoulder Palpation Location Below clavicle, shdr to neck, brachium and forearm. Palpation Findings Soft Tissue Tightness,Muscle Guarding,Tenderness PT-OP-K Range of Motion Start: 07/09/24 13:22 Freq: Status: Active Protocol: Document 08/07/24 13:02 LRN (Rec: 08/07/24 13:46 LRN Laptop) Shoulder Goniometric Range of Motion Shoulder Right Passive Comments R shoulder flexion leaning over with arm dangling: Flex- 80 deg's PT-OP-M Strength Start: 07/09/24 13:22 Freq: Status: Active Protocol: Document 07/10/24 16:07 LRN (Rec: 07/10/24 18:28 LRN [id number]) Shoulder Strength Shoulder Manual Muscle Testing Right Comments Pt under restriction for R shoulder AROM. Pt is able to move her R shoulder minimally; therefore strength appears to be 0-1/10. Left Comments Strength is generally 3-4/5 as pt is able to move against gravity and can overcome resistance of velcro to don/ doff her R shoulder brace. Formal assessment will be performed at next visit. PT-OP-Q Treatments Start: 07/09/24 13:22 Freq: Status: Active Protocol: Document 08/07/24 13:02 LRN (Rec: 08/07/24 13:46 LRN Laptop) Therapeutic Exercises Sitting Exercises PROM R shdr AB Side right Reps/Minutes Pt assist PROM x 15 Comments Cued for PROM Shoulder ER Sitting Exercise Name Passive ER hold @ 20 deg's Side right Equipment Used cane Reps/Minutes 15x Comments Cued for PROM Table slide Sitting Exercise Name Shoulder flex with slider sheet. flex 83-85 deg's. Side right Reps/Minutes X10 standing Comments Pain with mvmt, cued not to push into pain & hold stretch. Wrist flex/ext Sitting Exercise Name wrist flex/ext Side right Reps/Minutes 15x Comments Arm in 55 deg's flex & 20 deg AB Sup/Pron Sitting Exercise Name Active sup/pron, arm in neutral Side right Reps/Minutes 15x Comments Arm in 55 deg's flex & 20 deg AB R elbow flex Sitting Exercise Name Passive but pt Assisting flex Side right Reps/Minutes 15x Comments Verbal and visual cues Standing Exercises Codman's Standing Exercise Name forward bend stretch, then circles Side right Reps/Minutes X30 each (12') Comments Verbal and visual cues, Pt ed importance of PROM allow UE to relax Manual Therapy Treatment Consent Patient gave verbal consent for manual Yes treatment Soft Tissue Mobilization R deltoid Mobilization Type Oscillations,Strumming Intensity/Depth Superficial Body Position Sitting PT-OP-R Modalities Start: 07/09/24 13:22 Freq: Status: Active Protocol: Document 07/27/24 10:44 AB (Rec: 07/27/24 12:40 AB [id number]) Hot Pack/Cold Pack Treatment Cold Pack Location R shoulder Patient Position Hooklying Patient Tolerance Good Comments 10 min PT-OP-T Assessment and Plan Start: 07/09/24 13:22 Freq: Status: Active Protocol: Document 08/07/24 13:02 LRN (Rec: 08/07/24 13:46 LRN Laptop) Physical Therapy Assessment Goals Four Impairment Decreased function Short Term Goal (STG) pt able to strengthen the arm to carry light objects STG Duration 09/07/24 Fire Controlman Goal (LTG) Improve function per UE Quickdash score of 25 or less LTG Duration 10/30/24 Three Impairment Decreased R shoulder strength Short Term Goal (STG) Pt will be able to lift her R arm overhead and rotate at shoulder for independent dressing and personal care ( comb hair). STG Duration 09/07/24 Halfway Goal (LTG) Pt will be able to cook simple light wgt meals with R arm, and use both arms for ADLs ( bathing and cooking). LTG Duration 10/30/24 Two Impairment Decreased R shoulder PROM Short Term Goal (STG) Improve R shoulder PROM to 50% of normal (per L shoulder PROM) once cleared for all motions of PROM. 07/20/2024 PROM table slide to 81 deg R shoulder this session , ER PROM to 12 in scap plane and flexion to 54 deg in scap plane. 08/08/24: PROM table slide flex is 83-85 deg's. STG Duration 09/07/24 progressed 08/08/24 Halfway Goal (LTG) Improve R shoulder PROM to 80% -90% of normal ROM (per L shoulder PROM) LTG Duration 10/30/24 One Impairment Lacks appropriate self care HEP Short Term Goal (STG) Pt will be on a home exercise program with the assist of her spouse for PROM exercises and pain managment. 07/13/24: I/S pt in self PROM of elbow and forearm sup/pron , and Active wrist flex/ext. Deep breathing and bowel massage. 07/26/2023 Patient reports performing HEP STG Duration 08/03/24 progressed 07/13/24 Halfway Goal (LTG) Pt will be independent in a self care HEP of R shoulder PROM/AROM/strengthening ex's for return to her prior level of function. 07/13/24: I/S pt in self PROM of elbow and forearm sup/pron , and Active wrist flex/ext. Deep breathing and bowel massage. LTG Duration 10/30/24 progressed 07/13/24 Assessment Summary Assessment Pt s/p 4wks + 5 days post op ( 07/05/24), R RC rpr/biceps tenodesis/subacromial bursectomy/extensive SLAP tear debridement (superior labral A-P). Today, no further info specifying pt's RC ms involved with surgery received. Pt R shoulder flex appears stiff with anterior shoulder pain limiting her mobility; therefore will assess to advance in protocol next visit if pain down and mobility improved. Physical Therapy Plan Frequency and Duration Frequency of Treatment 2x/Week Duration of treatment (weeks) 16 Plan of Care Start Date 07/10/24 Plan of Care End Date 10/30/24 Next Visit Focus/Plan Next Note Type Treatment Note Next Visit Plan Next: Assess PROM for ER in sit & supine and recheck for meeting goals of phase 1 before advancing to phase 2. Check for response to voicemail request for information regarding muscles involved in repair of her R rotator cuff. MD hall to mod R RCR protocol (PO 0-3 wks) of approved PROM : R shoulder Flex <90?, AB 30- 40?, ER<20? in scapular plane, IR 0?. PROM elbow flex, AROM hand, wrist, AAROM-none. No shoulder AROM/AAROM, no lifting of objects. Hold periscapular Active mvmts ( retract, infer glide, setting, low row as subscap/teres min rpr as noted in op report of full thickness RC tear). See progression criteria per protocol. Educate/train pt in PROM biceps until s/p 4 wks if criteria met for progression ( 08/02/2024) can start AAROM. cane flexion, ER with cane, washcloth press, sidelying elevation to 90, Row on [employer] and shoulder extension on physionball pending meeting criteria to progress. Improve PROM of shoulder <20? and flex <90?. No scapular ex until
--- NOTE | 2024-08-08 18:43 | PT.OTN ---
Current Diagnoses Primary osteoarthritis, right shoulder (08/07/24) Superior glenoid labrum lesion of right shoulder, subsequent encounter (08/07/24) Strain of muscle(s) and tendon(s) of the rotator cuff of right shoulder, subsequent encounter (08/07/24) Physical Therapy Treatment Note PT-OP-A Visit Information Start: 07/09/24 13:22 Freq: Status: Active Protocol: Document 08/07/24 13:02 LRN (Rec: 08/07/24 13:46 LRN Laptop) Out-Patient Physical Therapy Visit Information Visit Information Visit Type Treatment Note Visit Note Next MD appt in August. Visit Start Time 13:02 Visit Stop Time 13:44 Visit Number 8 Evaluation Information Evaluation Date 07/10/24 Precautions Precautions 07/05/24 P/O arthroscopic R shdr RCR rpr, biceps tenodesis & debridement of extensive superior labral tearing (SLAP tear). 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 No cryotherapy to take due to last time water spilled out. PT-OP-B Current Condition Start: 07/09/24 13:22 Freq: Status: Active Protocol: Document 07/10/24 16:07 LRN (Rec: 07/10/24 18:28 LRN [id number]) Current Condition History of Current Condition Onset Date 07/05/24 Current Complaints R shoulder, neck, biceps and into wrist, and back of shoulder pain History of Current Condition Pt reports 07/05/24 had R rotator cuff repair surgery, biceps repair, and repair of upper shoulder muscles. Not able to verify her surgery as documents not available. Pt states she could lift R arm before the surgery and touch the top of her head, but couldn't reach forward, out to side or backward due to pain (rated 6-7/10). 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 Spouse helps with bathing, dressing, combing hair, and does cooking of meals. Pt is on medications for her pain (reported 8-9/10) and she reports using her ice machine all the time because of the pain. Prior Treatments and Tests No PT prior to surgery, did self exercises. Developmental History Developmental History Pt reports she has always had low back pain since breaking her back in 2014 and wore a cast for 5 months and then soft cast for 2 months. Low Back Pain rated 0-5/10. Treatment Goals Patient/Caregiver Goals Pt goals: - get rotator cuff working and arm working to be able to use both arms for ADLs. - 2 wks post op - able to have PROM - 4 wks - start to lift arm and rotate at shoulder. - 8 wks - lift arm independently for self care of bathing and dressing. -12 wks - pt able to strengthen the arm to carry light objects, comb hair, cook simple meals w/L hand (pt is R handed). Personal Factors Other Personal Factors That May Effect Lives with spouse who can help Therapy/Recovery with home exercises. 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 Long hx of LBP from L3 burst fracture. PT-OP-C Subjective Start: 07/09/24 13:22 Freq: Status: Active Protocol: Document 08/07/24 13:02 LRN (Rec: 08/07/24 13:46 LRN Laptop) OP-PT Subjective Patient Comments Patient Comments States she has been doing her ex's and the shoulder retraction exer is hard. States she is not taking one of her stronger pain medication because of addiction fear. PT-OP-H Neuro Start: 07/09/24 13:22 Freq: Status: Active Protocol: Document 07/10/24 16:07 LRN (Rec: 07/10/24 18:28 LRN [id number]) Sensation Evaluation Gross Sensation Gross Sensation WNL Comments Summary Comments Hyper sensitive in the R shoulder and axillary region. PT-OP-J Posture/Palpation/Skin Start: 07/09/24 13:22 Freq: Status: Active Protocol: Document 07/10/24 16:07 LRN (Rec: 07/10/24 18:28 LRN [id number]) Posture Evaluation Position Sitting Head/C-Spine Posture Forward Head Shoulder Posture (L) Elevated Comments Posture Comments Dowagers hump, mildly straightened T/S spine. Palpation Assessment Location R shoulder Palpation Location Below clavicle, shdr to neck, brachium and forearm. Palpation Findings Soft Tissue Tightness,Muscle Guarding,Tenderness PT-OP-K Range of Motion Start: 07/09/24 13:22 Freq: Status: Active Protocol: Document 08/07/24 13:02 LRN (Rec: 08/07/24 13:46 LRN Laptop) Shoulder Goniometric Range of Motion Shoulder Right Passive Comments R shoulder flexion leaning over with arm dangling: Flex- 80 deg's PT-OP-M Strength Start: 07/09/24 13:22 Freq: Status: Active Protocol: Document 07/10/24 16:07 LRN (Rec: 07/10/24 18:28 LRN [id number]) Shoulder Strength Shoulder Manual Muscle Testing Right Comments Pt under restriction for R shoulder AROM. Pt is able to move her R shoulder minimally; therefore strength appears to be 0-1/10. Left Comments Strength is generally 3-4/5 as pt is able to move against gravity and can overcome resistance of velcro to don/ doff her R shoulder brace. Formal assessment will be performed at next visit. PT-OP-Q Treatments Start: 07/09/24 13:22 Freq: Status: Active Protocol: Document 08/07/24 13:02 LRN (Rec: 08/07/24 13:46 LRN Laptop) Therapeutic Exercises Sitting Exercises PROM R shdr AB Side right Reps/Minutes Pt assist PROM x 15 Comments Cued for PROM Shoulder ER Sitting Exercise Name Passive ER hold @ 20 deg's Side right Equipment Used cane Reps/Minutes 15x Comments Cued for PROM Table slide Sitting Exercise Name Shoulder flex with slider sheet. flex 83-85 deg's. Side right Reps/Minutes X10 standing Comments Pain with mvmt, cued not to push into pain & hold stretch. Wrist flex/ext Sitting Exercise Name wrist flex/ext Side right Reps/Minutes 15x Comments Arm in 55 deg's flex & 20 deg AB Sup/Pron Sitting Exercise Name Active sup/pron, arm in neutral Side right Reps/Minutes 15x Comments Arm in 55 deg's flex & 20 deg AB R elbow flex Sitting Exercise Name Passive but pt Assisting flex Side right Reps/Minutes 15x Comments Verbal and visual cues Standing Exercises Codman's Standing Exercise Name forward bend stretch, then circles Side right Reps/Minutes X30 each (12') Comments Verbal and visual cues, Pt ed importance of PROM allow UE to relax Manual Therapy Treatment Consent Patient gave verbal consent for manual Yes treatment Soft Tissue Mobilization R deltoid Mobilization Type Oscillations,Strumming Intensity/Depth Superficial Body Position Sitting PT-OP-R Modalities Start: 07/09/24 13:22 Freq: Status: Active Protocol: Document 07/27/24 10:44 AB (Rec: 07/27/24 12:40 AB [id number]) Hot Pack/Cold Pack Treatment Cold Pack Location R shoulder Patient Position Hooklying Patient Tolerance Good Comments 10 min PT-OP-T Assessment and Plan Start: 07/09/24 13:22 Freq: Status: Active Protocol: Document 08/07/24 13:02 LRN (Rec: 08/07/24 13:46 LRN Laptop) Physical Therapy Assessment Rehab Potential Rehabilitation Potential Good Evaluation Complexity Number of Personal Factors/Comorbidities 1-2 Number of Body Systems Impaired 4 or More Clinical Presentation at Evaluation Evolving Impairments Impairments Activity Tolerance,Functional Activities,Functional Mobility ,Pain,Posture,ROM,Soft Tissue Mobility,Strength Goals Four Impairment Decreased function Short Term Goal (STG) pt able to strengthen the arm to carry light objects STG Duration 09/07/24 [facility] Goal (LTG) Improve function per UE Quickdash score of 25 or less LTG Duration 10/30/24 Three Impairment Decreased R shoulder strength Short Term Goal (STG) Pt will be able to lift her R arm overhead and rotate at shoulder for independent dressing and personal care ( comb hair). STG Duration 09/07/24 Trust Manager Assistant Goal (LTG) Pt will be able to cook simple light wgt meals with R arm, and use both arms for ADLs ( bathing and cooking). LTG Duration 10/30/24 Two Impairment Decreased R shoulder PROM Short Term Goal (STG) Improve R shoulder PROM to 50% of normal (per L shoulder PROM) once cleared for all motions of PROM. 07/20/2024 PROM table slide to 81 deg R shoulder this session , ER PROM to 12 in scap plane and flexion to 54 deg in scap plane. 08/08/24: PROM table slide flex is 83-85 deg's. STG Duration 09/07/24 progressed 08/08/24 [facility] Goal (LTG) Improve R shoulder PROM to 80% -90% of normal ROM (per L shoulder PROM) LTG Duration 10/30/24 One Impairment Lacks appropriate self care HEP Short Term Goal (STG) Pt will be on a home exercise program with the assist of her spouse for PROM exercises and pain managment. 07/13/24: I/S pt in self PROM of elbow and forearm sup/pron , and Active wrist flex/ext. Deep breathing and bowel massage. 07/26/2023 Patient reports performing HEP STG Duration 08/03/24 progressed 07/13/24 [facility] Goal (LTG) Pt will be independent in a self care HEP of R shoulder PROM/AROM/strengthening ex's for return to her prior level of function. 07/13/24: I/S pt in self PROM of elbow and forearm sup/pron , and Active wrist flex/ext. Deep breathing and bowel massage. LTG Duration 10/30/24 progressed 07/13/24 Assessment Summary Assessment Pt s/p 4wks + 5 days post op ( 07/05/24), R RC rpr/biceps tenodesis/subacromial bursectomy/extensive SLAP tear debridement (superior labral A-P). Today, no further info specifying pt's RC ms involved with surgery received. Today , pt was not ready to advance to Phase II due to increasing c/o pain in her R shoulder with exercise as she is tapering off on her pain medications. Pt R shoulder flex appears stiff with anterior shoulder pain limiting her mobility; therefore will assess to advance in protocol next visit if pain decreased and mobility improved. Pt will benefit from continued skilled physical therapy for continued progression of her rehab program per referring physician protocol. Physical Therapy Plan Frequency and Duration Frequency of Treatment 2x/Week Duration of treatment (weeks) 16 Plan of Care Start Date 07/10/24 Plan of Care End Date 10/30/24 Therapeutic Interventions Therapeutic Interventions Home Exercise Program,Manual Therapy,Neuromuscular Re- education,Patient/Caregiver Education,Self-Care/Home Management,Soft Tissue Mobilization,Taping, Therapeutic Activities, Therapeutic Exercises Modalities Cold Pack/Ice Massage Next Visit Focus/Plan Next Note Type Treatment Note Next Visit Plan Next: UE Quickdash. Assess PROM for ER in sit & supine and recheck for meeting goals of phase 1 before advancing to phase 2. Check for response to voicemail request for information regarding muscles involved in repair of her R rotator cuff. MD hall to mod R RCR protocol (PO 0-3 wks) of approved PROM : R shoulder Flex <90?, AB 30- 40?, ER<20? in scapular plane, IR 0?. PROM elbow flex, AROM hand, wrist, AAROM-none. No shoulder AROM/AAROM, no lifting of objects. Hold periscapular Active mvmts ( retract, infer glide, setting, low row as subscap/teres min rpr as noted in op report of full thickness RC tear). See progression criteria per protocol. Educate/train pt in PROM biceps until s/p 4 wks if criteria met for progression ( 08/02/2024) can start AAROM. cane flexion, ER with cane, washcloth press, sidelying elevation to 90, Row on [employer] and shoulder extension on physionball pending meeting criteria to progress. Improve PROM of shoulder <20? and flex <90?. No scapular ex until
--- NOTE | 2024-08-15 12:28 | PT.OTN ---
Current Diagnoses Primary osteoarthritis, right shoulder (08/15/24) Superior glenoid labrum lesion of right shoulder, subsequent encounter (08/15/24) Strain of muscle(s) and tendon(s) of the rotator cuff of right shoulder, subsequent encounter (08/15/24) Physical Therapy Treatment Note PT-OP-A Visit Information Start: 07/09/24 13:22 Freq: Status: Active Protocol: Document 08/15/24 08:42 AB (Rec: 08/15/24 10:44 AB Laptop) Out-Patient Physical Therapy Visit Information Visit Information Visit Type Treatment Note Visit Note Next MD appt in August. Visit Start Time 09:03 Visit Stop Time 09:50 Visit Number 9 Number of FERTILIZER LOADER Visits 1 Evaluation Information Evaluation Date 07/10/24 Precautions Precautions 07/05/24 P/O arthroscopic R shdr RCR rpr, biceps tenodesis & debridement of extensive superior labral tearing (SLAP tear). 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 No cryotherapy to take due to last time water spilled out. PT-OP-B Current Condition Start: 07/09/24 13:22 Freq: Status: Active Protocol: Document 07/10/24 16:07 LRN (Rec: 07/10/24 18:28 LRN [id number]) Current Condition History of Current Condition Onset Date 07/05/24 Current Complaints R shoulder, neck, biceps and into wrist, and back of shoulder pain History of Current Condition Pt reports 07/05/24 had R rotator cuff repair surgery, biceps repair, and repair of upper shoulder muscles. Not able to verify her surgery as documents not available. Pt states she could lift R arm before the surgery and touch the top of her head, but couldn't reach forward, out to side or backward due to pain (rated 6-7/10). 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 Spouse helps with bathing, dressing, combing hair, and does cooking of meals. Pt is on medications for her pain (reported 8-9/10) and she reports using her ice machine all the time because of the pain. Prior Treatments and Tests No PT prior to surgery, did self exercises. Developmental History Developmental History Pt reports she has always had low back pain since breaking her back in 2014 and wore a cast for 5 months and then soft cast for 2 months. Low Back Pain rated 0-5/10. Treatment Goals Patient/Caregiver Goals Pt goals: - get rotator cuff working and arm working to be able to use both arms for ADLs. - 2 wks post op - able to have PROM - 4 wks - start to lift arm and rotate at shoulder. - 8 wks - lift arm independently for self care of bathing and dressing. -12 wks - pt able to strengthen the arm to carry light objects, comb hair, cook simple meals w/L hand (pt is R handed). Personal Factors Other Personal Factors That May Effect Lives with spouse who can help Therapy/Recovery with home exercises. 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 Long hx of LBP from L3 burst fracture. PT-OP-C Subjective Start: 07/09/24 13:22 Freq: Status: Active Protocol: Document 08/15/24 08:42 AB (Rec: 08/15/24 10:44 AB Laptop) OP-PT Subjective Patient Comments Patient Comments Anabel is 5 weeks 6 days post op R shdr RCR rpr, biceps tenodesis & debridement of extensive superior labral tearing (SLAP tear) today. Patient reports she is doing better today, has achy pain 4/ 10 start of session R shoulder . Patient reports having more trouble with (describes ) ER with cane. 5 deg ER PROM seated R shoulder start of session flexion in hooklying PROM 61 deg start of session. Pt reports MD appointment 2024. No documents in chart regarding which rotator cuff muscles were repaird. PT-OP-H Neuro Start: 07/09/24 13:22 Freq: Status: Active Protocol: Document 07/10/24 16:07 LRN (Rec: 07/10/24 18:28 LRN [id number]) Sensation Evaluation Gross Sensation Gross Sensation WNL Comments Summary Comments Hyper sensitive in the R shoulder and axillary region. PT-OP-J Posture/Palpation/Skin Start: 07/09/24 13:22 Freq: Status: Active Protocol: Document 07/10/24 16:07 LRN (Rec: 07/10/24 18:28 LRN [id number]) Posture Evaluation Position Sitting Head/C-Spine Posture Forward Head Shoulder Posture (L) Elevated Comments Posture Comments Dowagers hump, mildly straightened T/S spine. Palpation Assessment Location R shoulder Palpation Location Below clavicle, shdr to neck, brachium and forearm. Palpation Findings Soft Tissue Tightness,Muscle Guarding,Tenderness PT-OP-K Range of Motion Start: 07/09/24 13:22 Freq: Status: Active Protocol: Document 08/07/24 13:02 LRN (Rec: 08/07/24 13:46 LRN Laptop) Shoulder Goniometric Range of Motion Shoulder Right Passive Comments R shoulder flexion leaning over with arm dangling: Flex- 80 deg's PT-OP-M Strength Start: 07/09/24 13:22 Freq: Status: Active Protocol: Document 07/10/24 16:07 LRN (Rec: 07/10/24 18:28 LRN [id number]) Shoulder Strength Shoulder Manual Muscle Testing Right Comments Pt under restriction for R shoulder AROM. Pt is able to move her R shoulder minimally; therefore strength appears to be 0-1/10. Left Comments Strength is generally 3-4/5 as pt is able to move against gravity and can overcome resistance of velcro to don/ doff her R shoulder brace. Formal assessment will be performed at next visit. PT-OP-Q Treatments Start: 07/09/24 13:22 Freq: Status: Active Protocol: Document 08/15/24 08:42 AB (Rec: 08/15/24 10:44 AB Laptop) Therapeutic Exercises Supine Exercises wash cloth press Reps/Minutes X 2 Comments very minimal movement with reports of biceps discomfort, discontinued Sitting Exercises Shoulder ER Sitting Exercise Name Passive ER hold @ 20 deg's Side right Equipment Used cane Reps/Minutes 3 min plus instruction Comments Review of PROM towel roll at elbow initiated with pillows then on mat/tab H Table slide Sitting Exercise Name Shoulder flex with slider sheet. flex 83-85 deg's. Side right Reps/Minutes 3 min + instruction repeated verbal and visual cues for PROM Standing Exercises Codman's Standing Exercise Name forward bend stretch, then circles Side right Reps/Minutes X30 each (12') Comments Verbal and visual cues, Pt ed importance of PROM allow UE to relax Manual Therapy Treatment Consent Patient gave verbal consent for manual Yes treatment Manual Techniques PROM R shoulder Type 1. ER in scap pane 2. flexion in scap plane Comments Monitored for pain and guarding PT-OP-R Modalities Start: 07/09/24 13:22 Freq: Status: Active Protocol: Document 07/27/24 10:44 AB (Rec: 07/27/24 12:40 AB [id number]) Hot Pack/Cold Pack Treatment Cold Pack Location R shoulder Patient Position Hooklying Patient Tolerance Good Comments 10 min PT-OP-T Assessment and Plan Start: 07/09/24 13:22 Freq: Status: Active Protocol: Document 08/15/24 08:42 AB (Rec: 08/15/24 10:44 AB Laptop) Physical Therapy Assessment Goals Four Impairment Decreased function Short Term Goal (STG) pt able to strengthen the arm to carry light objects STG Duration 09/07/24 [facility] Goal (LTG) Improve function per UE Quickdash score of 25 or less LTG Duration 10/30/24 Three Impairment Decreased R shoulder strength Short Term Goal (STG) Pt will be able to lift her R arm overhead and rotate at shoulder for independent dressing and personal care ( comb hair). STG Duration 09/07/24 Sergeant Of Officers Goal (LTG) Pt will be able to cook simple light wgt meals with R arm, and use both arms for ADLs ( bathing and cooking). LTG Duration 10/30/24 Two Impairment Decreased R shoulder PROM Short Term Goal (STG) Improve R shoulder PROM to 50% of normal (per L shoulder PROM) once cleared for all motions of PROM. 07/20/2024 PROM table slide to 81 deg R shoulder this session , ER PROM to 12 in scap plane and flexion to 54 deg in scap plane. 08/08/24: PROM table slide flex is 83-85 deg's. STG Duration 09/07/24 progressed 08/08/24 [facility] Goal (LTG) Improve R shoulder PROM to 80% -90% of normal ROM (per L shoulder PROM) LTG Duration 10/30/24 One Impairment Lacks appropriate self care HEP Short Term Goal (STG) Pt will be on a home exercise program with the assist of her spouse for PROM exercises and pain managment. 07/13/24: I/S pt in self PROM of elbow and forearm sup/pron , and Active wrist flex/ext. Deep breathing and bowel massage. 07/26/2023 Patient reports performing HEP STG Duration 08/03/24 progressed 07/13/24 Sergeant Of Officers Goal (LTG) Pt will be independent in a self care HEP of R shoulder PROM/AROM/strengthening ex's for return to her prior level of function. 07/13/24: I/S pt in self PROM of elbow and forearm sup/pron , and Active wrist flex/ext. Deep breathing and bowel massage. LTG Duration 10/30/24 progressed 07/13/24 Assessment Summary Assessment PROM ER to 12 deg, flexion to 81 deg right shoulder in scap plane measured during dowel ex for ER and table slide for flexion, Pt to 62 deg flex in scap plane with PROM manually. End of session rates pain 5/ 10 R shoulder, no exercises added to HEP. Increased verbal and visual cues for performing ROM during table slides. Verbal cues to avoid AROM elbow flexion as observed patient perform X 1 during session. Physical Therapy Plan Frequency and Duration Frequency of Treatment 2x/Week Duration of treatment (weeks) 16 Plan of Care Start Date 07/10/24 Plan of Care End Date 10/30/24 Next Visit Focus/Plan Next Note Type Treatment Note Next Visit Plan Continue to Check for response to voicemail request for information regarding muscles involved in repair of her R rotator cuff. MD hall to mod R RCR protocol (PO 0-3 wks) of approved PROM : R shoulder Flex <90?, AB 30- 40?, ER<20? in scapular plane, IR 0?. PROM elbow flex, AROM hand, wrist, AAROM-none. No shoulder AROM/AAROM, no lifting of objects. Hold periscapular Active mvmts ( retract, infer glide, setting, low row as subscap/teres min rpr as noted in op report of full thickness RC tear). See progression criteria per protocol. Educate/train pt in PROM biceps until s/p 4 wks if criteria met for progression ( 08/02/2024) can start AAROM. cane flexion, ER with cane, washcloth press, sidelying elevation to 90, Row on [employer] and shoulder extension on physionball pending meeting criteria to progress. Improve PROM of shoulder <20? and flex <90?. No scapular ex until
--- NOTE | 2024-08-22 15:01 | PT.OTN ---
Current Diagnoses Primary osteoarthritis, right shoulder (08/22/24) Superior glenoid labrum lesion of right shoulder, subsequent encounter (08/22/24) Strain of muscle(s) and tendon(s) of the rotator cuff of right shoulder, subsequent encounter (08/22/24) Physical Therapy Treatment Note PT-OP-A Visit Information Start: 07/09/24 13:22 Freq: Status: Active Protocol: Document 08/22/24 09:08 LRN (Rec: 08/22/24 10:01 LRN Laptop) Out-Patient Physical Therapy Visit Information Visit Information Visit Type Treatment Note Visit Note Next MD August 29 (PT August 30) Visit Start Time 09:08 Visit Stop Time 10:00 Visit Number 10 (2 after PN) Evaluation Information Evaluation Date 07/10/24 Precautions Precautions 07/05/24 P/O arthroscopic R shdr RCR rpr, biceps tenodesis & debridement of extensive superior labral tearing (SLAP tear). 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 No cryotherapy to take due to last time water spilled out. PT-OP-B Current Condition Start: 07/09/24 13:22 Freq: Status: Active Protocol: Document 07/10/24 16:07 LRN (Rec: 07/10/24 18:28 LRN [id number]) Current Condition History of Current Condition Onset Date 07/05/24 Current Complaints R shoulder, neck, biceps and into wrist, and back of shoulder pain History of Current Condition Pt reports 07/05/24 had R rotator cuff repair surgery, biceps repair, and repair of upper shoulder muscles. Not able to verify her surgery as documents not available. Pt states she could lift R arm before the surgery and touch the top of her head, but couldn't reach forward, out to side or backward due to pain (rated 6-7/10). 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 Spouse helps with bathing, dressing, combing hair, and does cooking of meals. Pt is on medications for her pain (reported 8-9/10) and she reports using her ice machine all the time because of the pain. Prior Treatments and Tests No PT prior to surgery, did self exercises. Developmental History Developmental History Pt reports she has always had low back pain since breaking her back in 2014 and wore a cast for 5 months and then soft cast for 2 months. Low Back Pain rated 0-5/10. Treatment Goals Patient/Caregiver Goals Pt goals: - get rotator cuff working and arm working to be able to use both arms for ADLs. - 2 wks post op - able to have PROM - 4 wks - start to lift arm and rotate at shoulder. - 8 wks - lift arm independently for self care of bathing and dressing. -12 wks - pt able to strengthen the arm to carry light objects, comb hair, cook simple meals w/L hand (pt is R handed). Personal Factors Other Personal Factors That May Effect Lives with spouse who can help Therapy/Recovery with home exercises. 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 Long hx of LBP from L3 burst fracture. PT-OP-C Subjective Start: 07/09/24 13:22 Freq: Status: Active Protocol: Document 08/22/24 09:08 LRN (Rec: 08/22/24 10:01 LRN Laptop) OP-PT Subjective Patient Comments Patient Comments Has report indicating ms involved in surgery. Pt reports being 6 wks post op today (07/05/24). Last night rolled R to L side and felt sharp pain at R shdr and hurt thru the night and mid morning (til ~4-5a). Use of Salon Pas that has taken the pain down. PT-OP-H Neuro Start: 07/09/24 13:22 Freq: Status: Active Protocol: Document 07/10/24 16:07 LRN (Rec: 07/10/24 18:28 LRN [id number]) Sensation Evaluation Gross Sensation Gross Sensation WNL Comments Summary Comments Hyper sensitive in the R shoulder and axillary region. PT-OP-J Posture/Palpation/Skin Start: 07/09/24 13:22 Freq: Status: Active Protocol: Document 07/10/24 16:07 LRN (Rec: 07/10/24 18:28 LRN [id number]) Posture Evaluation Position Sitting Head/C-Spine Posture Forward Head Shoulder Posture (L) Elevated Comments Posture Comments Dowagers hump, mildly straightened T/S spine. Palpation Assessment Location R shoulder Palpation Location Below clavicle, shdr to neck, brachium and forearm. Palpation Findings Soft Tissue Tightness,Muscle Guarding,Tenderness PT-OP-K Range of Motion Start: 07/09/24 13:22 Freq: Status: Active Protocol: Document 08/22/24 09:08 LRN (Rec: 08/22/24 10:01 LRN Laptop) Shoulder Goniometric Range of Motion Shoulder Right Testing Position Supine Flexion 90 Comments AAROM above. ER in scapular plane: 20-40 deg's Right Passive Shoulder ROM WFL No Testing Position Sitting Flexion 89 Comments ROM taken flex: table slide. ER (20 deg's AB 30 deg's flexed) - 20 deg's after stretching (16 deg's to start) PT-OP-M Strength Start: 07/09/24 13:22 Freq: Status: Active Protocol: Document 07/10/24 16:07 LRN (Rec: 07/10/24 18:28 LRN [id number]) Shoulder Strength Shoulder Manual Muscle Testing Right Comments Pt under restriction for R shoulder AROM. Pt is able to move her R shoulder minimally; therefore strength appears to be 0-1/10. Left Comments Strength is generally 3-4/5 as pt is able to move against gravity and can overcome resistance of velcro to don/ doff her R shoulder brace. Formal assessment will be performed at next visit. PT-OP-Q Treatments Start: 07/09/24 13:22 Freq: Status: Active Protocol: Document 08/22/24 09:08 LRN (Rec: 08/22/24 10:01 LRN Laptop) Therapeutic Exercises Supine Exercises AAROM ER w/cane Supine Exercise Name AAROM ER in scapular plane limiting to 20 deg's ER Side right Equipment Used cane Comments Pt moves slowly through range conc/ecc AAROM flex w/cane Supine Exercise Name AAROM flex in scapular plane, limiting to <90 deg's flex Side right Equipment Used manual assist Reps/Minutes 10x Comments Pt moves slowly through range conc/ecc Sitting Exercises Shoulder ER Sitting Exercise Name Passive ER hold, limiting to < = 20 deg's (chest agst plinth) Side right Equipment Used cane Reps/Minutes 6 min plus instruction Comments Cuing to relax shoulders to breath into stretch Table slide Sitting Exercise Name Shoulder flex; flex 88 deg's ( palm down), 90 deg's (hand neutral). Side right Reps/Minutes 3 min + instruction repeated verbal and visual cues for PROM Sup/Pron Sitting Exercise Name Active sup/pron, forearm in neutral, elbow 0? AB Side right Reps/Minutes 15x Comments Arm in 70 deg's flex,20 deg AB Standing Exercises Codman's Standing Exercise Name forward bend flex stretch, then circles Side right Reps/Minutes X30 each Comments Verbal and visual cues, Pt reminded of PROM & to relax UE Manual Therapy Treatment Consent Patient gave verbal consent for manual Yes treatment Soft Tissue Mobilization R deltoid Intensity/Depth Superficial Body Position Supine Comments Light strumming of Deltoid Manual Techniques PROM R shoulder Type 1. ER in scap pane 2. flexion in scap plane Comments Monitored for pain and guarding Other Other Manual Treatments Pt permission to assist with R shoulder ex's. PT-OP-R Modalities Start: 07/09/24 13:22 Freq: Status: Active Protocol: Document 07/27/24 10:44 AB (Rec: 07/27/24 12:40 AB [id number]) Hot Pack/Cold Pack Treatment Cold Pack Location R shoulder Patient Position Hooklying Patient Tolerance Good Comments 10 min PT-OP-T Assessment and Plan Start: 07/09/24 13:22 Freq: Status: Active Protocol: Document 08/22/24 09:08 LRN (Rec: 08/22/24 10:01 LRN Laptop) Physical Therapy Assessment Goals Four Impairment Decreased function Short Term Goal (STG) pt able to strengthen the arm to carry light objects STG Duration 09/07/24 Manager Culinary Goal (LTG) Improve function per UE Quickdash score of 25 or less LTG Duration 10/30/24 Three Impairment Decreased R shoulder strength Short Term Goal (STG) Pt will be able to lift her R arm overhead and rotate at shoulder for independent dressing and personal care ( comb hair). STG Duration 09/07/24 Manager [employer] Goal (LTG) Pt will be able to cook simple light wgt meals with R arm, and use both arms for ADLs ( bathing and cooking). LTG Duration 10/30/24 Two Impairment Decreased R shoulder PROM Short Term Goal (STG) Improve R shoulder PROM to 50% of normal (per L shoulder PROM) once cleared for all motions of PROM. 07/20/2024 PROM table slide to 81 deg R shoulder this session , ER PROM to 12 in scap plane and flexion to 54 deg in scap plane. 08/08/24: PROM table slide flex is 83-85 deg's. 08/22/24: PROM (sit & sup) sit table slide flex 88?, ER ( scapular plane) 20? after ROM ex. IR-pt can lay hand across abdomen. STG Duration 09/07/24 progressed 08/22/24 Mcc Goal (LTG) Improve R shoulder PROM to 80% -90% of normal ROM (per L shoulder PROM) LTG Duration 10/30/24 One Impairment Lacks appropriate self care HEP Short Term Goal (STG) Pt will be on a home exercise program with the assist of her spouse for PROM exercises and pain managment. 07/13/24: I/S pt in self PROM of elbow and forearm sup/pron , and Active wrist flex/ext. Deep breathing and bowel massage. 07/26/2023 Patient reports performing HEP STG Duration 08/03/24 progressed 07/13/24 Manager Cul[employer] Goal (LTG) Pt will be independent in a self care HEP of R shoulder PROM/AROM/strengthening ex's for return to her prior level of function. 07/13/24: I/S pt in self PROM of elbow and forearm sup/pron , and Active wrist flex/ext. Deep breathing and bowel massage. LTG Duration 10/30/24 progressed 07/13/24 Assessment Summary Assessment Pt is post op (on 07/05/24) 6 wks + 6 days. Per protocol, pt is almost 7 wks post op. Pt has achieved criteria to progress to phase III, but ER only achieved after stretching . She does not tolerate intervention of phase II AAROM of shoulder flex w/cane or washcloth press; sidelye elevation to 90? not yet performed. Pt to see referring physician 08/29/24 and will probably be cleared to progress to phase III, expect ER to be difficult to progress. Will continue per protocol unless otherwise recommended by referring physician. Physical Therapy Plan Frequency and Duration Frequency of Treatment 2x/Week Duration of treatment (weeks) 16 Plan of Care Start Date 07/10/24 Plan of Care End Date 10/30/24 Next Visit Focus/Plan Next Note Type Treatment Note Next Visit Plan Continue per protocol, if referring MD agrees to progress pt onto phase III of protocol. No specific R rot cuff muscles named as involved in repair, along with the superior labrum and biceps tenodesis. MD hall to mod R RCR protocol (PO 0-3 wks) of approved PROM : R shoulder Flex <90?, AB 30- 40?, ER<20? in scapular plane, IR 0?. PROM elbow flex, AROM hand, wrist, AAROM-none. No shoulder AROM/AAROM, no lifting of objects. Hold periscapular Active mvmts ( retract, infer glide, setting, low row as subscap/teres min rpr as noted in op report of full thickness RC tear). See progression criteria per protocol. Educate/train pt in PROM biceps until s/p 4 wks if criteria met for progression ( 08/02/2024) can start AAROM. cane flexion, ER with cane, washcloth press, sidelying elevation to 90, Row on physi[employer]eral Biomedic[employer]l and shoulder extension on physionball pending meeting criteria to progress. Improve PROM of shoulder <20? and flex <90?. Periscapular strengthening can be an intervention 7-8 wks postop, although also noted as intervention 0-3 wks post op per protocol (standing scap setting, supported scap setting, infer glide & low row ).
--- NOTE | 2024-08-30 12:38 | PT.OTN ---
Current Diagnoses Primary osteoarthritis, right shoulder (08/30/24) Superior glenoid labrum lesion of right shoulder, subsequent encounter (08/30/24) Strain of muscle(s) and tendon(s) of the rotator cuff of right shoulder, subsequent encounter (08/30/24) Physical Therapy Treatment Note PT-OP-A Visit Information Start: 07/09/24 13:22 Freq: Status: Active Protocol: Document 08/30/24 10:11 AB (Rec: 08/30/24 12:37 AB Laptop) Out-Patient Physical Therapy Visit Information Visit Information Visit Type Treatment Note Visit Note Next MD August 29 (PT August 30) Visit Start Time 11:31 Visit Stop Time 12:28 Visit Number 11 Number of HISTOLOGY ASSISTANT Visits 1 Evaluation Information Evaluation Date 07/10/24 Precautions Precautions 07/05/24 P/O arthroscopic R shdr RCR rpr, biceps tenodesis & debridement of extensive superior labral tearing (SLAP tear). 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 No cryotherapy to take due to last time water spilled out. PT-OP-B Current Condition Start: 07/09/24 13:22 Freq: Status: Active Protocol: Document 07/10/24 16:07 LRN (Rec: 07/10/24 18:28 LRN [id number]) Current Condition History of Current Condition Onset Date 07/05/24 Current Complaints R shoulder, neck, biceps and into wrist, and back of shoulder pain History of Current Condition Pt reports 07/05/24 had R rotator cuff repair surgery, biceps repair, and repair of upper shoulder muscles. Not able to verify her surgery as documents not available. Pt states she could lift R arm before the surgery and touch the top of her head, but couldn't reach forward, out to side or backward due to pain (rated 6-7/10). 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 Spouse helps with bathing, dressing, combing hair, and does cooking of meals. Pt is on medications for her pain (reported 8-9/10) and she reports using her ice machine all the time because of the pain. Prior Treatments and Tests No PT prior to surgery, did self exercises. Developmental History Developmental History Pt reports she has always had low back pain since breaking her back in 2014 and wore a cast for 5 months and then soft cast for 2 months. Low Back Pain rated 0-5/10. Treatment Goals Patient/Caregiver Goals Pt goals: - get rotator cuff working and arm working to be able to use both arms for ADLs. - 2 wks post op - able to have PROM - 4 wks - start to lift arm and rotate at shoulder. - 8 wks - lift arm independently for self care of bathing and dressing. -12 wks - pt able to strengthen the arm to carry light objects, comb hair, cook simple meals w/L hand (pt is R handed). Personal Factors Other Personal Factors That May Effect Lives with spouse who can help Therapy/Recovery with home exercises. 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 Long hx of LBP from L3 burst fracture. PT-OP-C Subjective Start: 07/09/24 13:22 Freq: Status: Active Protocol: Document 08/30/24 10:11 AB (Rec: 08/30/24 12:37 AB Laptop) OP-PT Subjective Patient Comments Patient Comments Patient is 8 weeks post op R shoulder RCR repair. Patient reports MD said everything looked good, patient has been advised to discontinue sling at home, but to continue wearing it in public. Patient reports MD said soup can with biceps curl OK. Patient reports MD said this will take 9 months to a year and to do it slowly. Patient reports MD will send a protocol he got from website that is from [place]. Patient out of sling AROM shoulder flexion 42 deg start of session. PT-OP-H Neuro Start: 07/09/24 13:22 Freq: Status: Active Protocol: Document 07/10/24 16:07 LRN (Rec: 07/10/24 18:28 LRN [id number]) Sensation Evaluation Gross Sensation Gross Sensation WNL Comments Summary Comments Hyper sensitive in the R shoulder and axillary region. PT-OP-J Posture/Palpation/Skin Start: 07/09/24 13:22 Freq: Status: Active Protocol: Document 07/10/24 16:07 LRN (Rec: 07/10/24 18:28 LRN [id number]) Posture Evaluation Position Sitting Head/C-Spine Posture Forward Head Shoulder Posture (L) Elevated Comments Posture Comments Dowagers hump, mildly straightened T/S spine. Palpation Assessment Location R shoulder Palpation Location Below clavicle, shdr to neck, brachium and forearm. Palpation Findings Soft Tissue Tightness,Muscle Guarding,Tenderness PT-OP-K Range of Motion Start: 07/09/24 13:22 Freq: Status: Active Protocol: Document 08/22/24 09:08 LRN (Rec: 08/22/24 10:01 LRN Laptop) Shoulder Goniometric Range of Motion Shoulder Right Testing Position Supine Flexion 90 Comments AAROM above. ER in scapular plane: 20-40 deg's Right Passive Shoulder ROM WFL No Testing Position Sitting Flexion 89 Comments ROM taken flex: table slide. ER (20 deg's AB 30 deg's flexed) - 20 deg's after stretching (16 deg's to start) PT-OP-M Strength Start: 07/09/24 13:22 Freq: Status: Active Protocol: Document 07/10/24 16:07 LRN (Rec: 07/10/24 18:28 LRN [id number]) Shoulder Strength Shoulder Manual Muscle Testing Right Comments Pt under restriction for R shoulder AROM. Pt is able to move her R shoulder minimally; therefore strength appears to be 0-1/10. Left Comments Strength is generally 3-4/5 as pt is able to move against gravity and can overcome resistance of velcro to don/ doff her R shoulder brace. Formal assessment will be performed at next visit. PT-OP-Q Treatments Start: 07/09/24 13:22 Freq: Status: Active Protocol: Document 08/30/24 10:11 AB (Rec: 08/30/24 12:37 AB Laptop) Therapeutic Exercises Supine Exercises AAROM flex w/cane Supine Exercise Name AAROM flex in scapular plane, limiting to <90 deg's flex Side right Reps/Minutes X5 Comments Pt moves slowly through range conc/ecc wash cloth press Side bilateral Reps/Minutes X2 Comments reports pain increased from 5/ 10 to 7/10 Sidelying Exercises sidelying shoulder flexion Sidelying Exercise Name AAROM shoulder fully supported Side right Reps/Minutes X8 Comments monitored for pain Sitting Exercises PROM R shdr AB Side right Reps/Minutes Pt assist PROM x 15 Comments Cued for PROM Shoulder ER Sitting Exercise Name Passive ER hold, limiting to < = 20 deg's (chest agst plinth) Side right Equipment Used cane Reps/Minutes X10 Comments assist for set up Standing Exercises Codman's Standing Exercise Name forward bend flex stretch, then circles Side right Reps/Minutes X30 each Comments Verbal and visual cues, Pt reminded of PROM & to relax UE Manual Therapy Treatment Consent Patient gave verbal consent for manual Yes treatment Soft Tissue Mobilization R deltoid Mobilization Type Oscillations,Strumming Body Position Supine Comments Light strumming of Deltoid Manual Techniques assisted scap setting Body Location sidelying Reps/Duration X10 R scap Comments Patient reports this feels good. PROM R shoulder Type 1. ER in scap pane 2. flexion in scap plane AA this session Comments Monitored for pain and guarding PT-OP-R Modalities Start: 07/09/24 13:22 Freq: Status: Active Protocol: Document 08/30/24 10:11 AB (Rec: 08/30/24 12:37 AB Laptop) Hot Pack/Cold Pack Treatment Cold Pack Location R shoulder Patient Position Hooklying Patient Tolerance Good Comments 10 min PT-OP-T Assessment and Plan Start: 07/09/24 13:22 Freq: Status: Active Protocol: Document 08/30/24 10:11 AB (Rec: 08/30/24 12:37 AB Laptop) Physical Therapy Assessment Goals Four Impairment Decreased function Short Term Goal (STG) pt able to strengthen the arm to carry light objects STG Duration 09/07/24 [employer] Goal (LTG) Improve function per UE Quickdash score of 25 or less LTG Duration 10/30/24 Three Impairment Decreased R shoulder strength Short Term Goal (STG) Pt will be able to lift her R arm overhead and rotate at shoulder for independent dressing and personal care ( comb hair). STG Duration 09/07/24 Group Home Goal (LTG) Pt will be able to cook simple light wgt meals with R arm, and use both arms for ADLs ( bathing and cooking). LTG Duration 10/30/24 Two Impairment Decreased R shoulder PROM Short Term Goal (STG) Improve R shoulder PROM to 50% of normal (per L shoulder PROM) once cleared for all motions of PROM. 07/20/2024 PROM table slide to 81 deg R shoulder this session , ER PROM to 12 in scap plane and flexion to 54 deg in scap plane. 08/08/24: PROM table slide flex is 83-85 deg's. 08/22/24: PROM (sit & sup) sit table slide flex 88?, ER ( scapular plane) 20? after ROM ex. IR-pt can lay hand across abdomen. 08/30/2024 Patient now out of sling in home, wears sling when out in public AROM end of session right shoulder flexion 64 deg. STG Duration 09/07/24 progressed 08/22/24 [employer] Mason Goal (LTG) Improve R shoulder PROM to 80% -90% of normal ROM (per L shoulder PROM) LTG Duration 10/30/24 One Impairment Lacks appropriate self care HEP Short Term Goal (STG) Pt will be on a home exercise program with the assist of her spouse for PROM exercises and pain managment. 07/13/24: I/S pt in self PROM of elbow and forearm sup/pron , and Active wrist flex/ext. Deep breathing and bowel massage. 07/26/2023 Patient reports performing HEP STG Duration 08/03/24 progressed 07/13/24 Group Home Goal (LTG) Pt will be independent in a self care HEP of R shoulder PROM/AROM/strengthening ex's for return to her prior level of function. 07/13/24: I/S pt in self PROM of elbow and forearm sup/pron , and Active wrist flex/ext. Deep breathing and bowel massage. LTG Duration 10/30/24 progressed 07/13/24 Assessment Summary Assessment Pt is post op (on 07/05/24) 6 wks + 6 days. Per protocol patient is 8 weeks post op. End of session AROM right shoulder flexion 64 deg. To grossly/nearly 90 with cane ex in supine this session. Physical Therapy Plan Frequency and Duration Frequency of Treatment 2x/Week Duration of treatment (weeks) 16 Plan of Care Start Date 07/10/24 Plan of Care End Date 10/30/24 Next Visit Focus/Plan Next Note Type Treatment Note Next Visit Plan Continue per protocol, if referring MD agrees to progress pt onto phase III of protocol(- Patient reports MD sent new protocol, but none are in chart(from [place])) Per current protocol for rotator cuff 7-8 weeks post surgery phase 3 able to initiate scap rectract/depress /protrac with sub scap and teres minor repairs/( previously not initiated as surgery note does not indicate which muscles repaired and have not received response regarding this information) As patient has reached the time in the protocol for protection of these muscles this restriction is no longer relevant. Patient continues to be primarily in phase II rotator protocol from [facility] due to dec filomena to phase II exercises. For Biceps protocol patient is in phase III initiate resisted bicep curls.
--- NOTE | 2024-08-30 16:16 | PT-OP ANOTE ---
Phoned [facility] [place] [phone] Alem Cruz CMA regarding Patient reporting a new protocol would be faxed to PT, the protocol per patient is from [place] and this clinic received a faxed protocol today which is the same protocol we have been using from [employer]. Also, phoned back a few moments later and spoke with office staff, with the same information/questions regarding protocol, and was put on hold as staff commented they would find someone to speak to me, then the call ended after a few minutes of being on hold.
--- NOTE | 2024-08-31 10:10 | PT-OP ANOTE ---
Left message for Alem Cruz CMA regarding patient reporting new protocol from [place] would be faxed to this clinic. Also this message made recipient aware [facility] received a protocol 08/30/2024, but it is the same protocol we had originally received 07/12/2024 which is a rotator cuff protocol From [facility]. Left phone number of this therapist, and front office help. Also, phoned again and attempted to speak to a person and was transferred to the same extension for leaving a message for Jose Roberto Cruz CMA.
--- NOTE | 2024-09-05 17:55 | PT.OTN ---
Current Diagnoses Primary osteoarthritis, right shoulder (09/05/24) Superior glenoid labrum lesion of right shoulder, subsequent encounter (09/05/24) Strain of muscle(s) and tendon(s) of the rotator cuff of right shoulder, subsequent encounter (09/05/24) Physical Therapy Treatment Note PT-OP-A Visit Information Start: 07/09/24 13:22 Freq: Status: Active Protocol: Document 09/05/24 13:01 LRN (Rec: 09/05/24 13:44 LRN Laptop) Out-Patient Physical Therapy Visit Information Visit Information Visit Type Progress Note Visit Note Next MD visit is 10/31/24. Visit Start Time 13:01 Visit Stop Time 13:43 Visit Number 12 Evaluation Information Evaluation Date 07/10/24 Precautions Precautions 07/05/24 P/O arthroscopic R shdr RCR rpr, biceps tenodesis & debridement of extensive superior labral tearing (SLAP tear). 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 No cryotherapy to take due to last time water spilled out. PT-OP-B Current Condition Start: 07/09/24 13:22 Freq: Status: Active Protocol: Document 07/10/24 16:07 LRN (Rec: 07/10/24 18:28 LRN [id number]) Current Condition History of Current Condition Onset Date 07/05/24 Current Complaints R shoulder, neck, biceps and into wrist, and back of shoulder pain History of Current Condition Pt reports 07/05/24 had R rotator cuff repair surgery, biceps repair, and repair of upper shoulder muscles. Not able to verify her surgery as documents not available. Pt states she could lift R arm before the surgery and touch the top of her head, but couldn't reach forward, out to side or backward due to pain (rated 6-7/10). 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 Spouse helps with bathing, dressing, combing hair, and does cooking of meals. Pt is on medications for her pain (reported 8-9/10) and she reports using her ice machine all the time because of the pain. Prior Treatments and Tests No PT prior to surgery, did self exercises. Developmental History Developmental History Pt reports she has always had low back pain since breaking her back in 2014 and wore a cast for 5 months and then soft cast for 2 months. Low Back Pain rated 0-5/10. Treatment Goals Patient/Caregiver Goals Pt goals: - get rotator cuff working and arm working to be able to use both arms for ADLs. - 2 wks post op - able to have PROM - 4 wks - start to lift arm and rotate at shoulder. - 8 wks - lift arm independently for self care of bathing and dressing. -12 wks - pt able to strengthen the arm to carry light objects, comb hair, cook simple meals w/L hand (pt is R handed). Personal Factors Other Personal Factors That May Effect Lives with spouse who can help Therapy/Recovery with home exercises. 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 Long hx of LBP from L3 burst fracture. PT-OP-C Subjective Start: 07/09/24 13:22 Freq: Status: Active Protocol: Document 09/05/24 13:01 LRN (Rec: 09/05/24 13:44 LRN Laptop) OP-PT Subjective Patient Comments Patient Comments Was told to wear the sling when in public. Been doing well because can now encorporate the R arm to do activities. Putting clothes on (pants) has stinging pain from use. Most discomfort with R anterolateral neck/ shoulder. Doing vaccuming and cleaning. MD thought she did well and check ROM. Was told to hang the arm and be careful with what she does. STill under protocol, but gave no restrictions. NExt MD visit is 10/31/24. Patient Questionnaires Quick Dash- Upper Extremity Quick Dash UE Score 77.27 Quick Dash UE Impairment 60 to 79% Impaired (Score 60- 79) PT-OP-H Neuro Start: 07/09/24 13:22 Freq: Status: Active Protocol: Document 07/10/24 16:07 LRN (Rec: 07/10/24 18:28 LRN [id number]) Sensation Evaluation Gross Sensation Gross Sensation WNL Comments Summary Comments Hyper sensitive in the R shoulder and axillary region. PT-OP-J Posture/Palpation/Skin Start: 07/09/24 13:22 Freq: Status: Active Protocol: Document 07/10/24 16:07 LRN (Rec: 07/10/24 18:28 LRN [id number]) Posture Evaluation Position Sitting Head/C-Spine Posture Forward Head Shoulder Posture (L) Elevated Comments Posture Comments Dowagers hump, mildly straightened T/S spine. Palpation Assessment Location R shoulder Palpation Location Below clavicle, shdr to neck, brachium and forearm. Palpation Findings Soft Tissue Tightness,Muscle Guarding,Tenderness PT-OP-K Range of Motion Start: 07/09/24 13:22 Freq: Status: Active Protocol: Document 08/22/24 09:08 LRN (Rec: 08/22/24 10:01 LRN Laptop) Shoulder Goniometric Range of Motion Shoulder Right Testing Position Supine Flexion 90 Comments AAROM above. ER in scapular plane: 20-40 deg's Right Passive Shoulder ROM WFL No Testing Position Sitting Flexion 89 Comments ROM taken flex: table slide. ER (20 deg's AB 30 deg's flexed) - 20 deg's after stretching (16 deg's to start) PT-OP-M Strength Start: 07/09/24 13:22 Freq: Status: Active Protocol: Document 07/10/24 16:07 LRN (Rec: 07/10/24 18:28 [facility] [id number]) Shoulder Strength Shoulder Manual Muscle Testing Right Comments Pt under restriction for R shoulder AROM. Pt is able to move her R shoulder minimally; therefore strength appears to be 0-1/10. Left Comments Strength is generally 3-4/5 as pt is able to move against gravity and can overcome resistance of velcro to don/ doff her R shoulder brace. Formal assessment will be performed at next visit. PT-OP-Q Treatments Start: 07/09/24 13:22 Freq: Status: Active Protocol: Document 09/05/24 13:01 LRN (Rec: 09/05/24 13:44 LRN Laptop) Therapeutic Exercises Sitting Exercises Biceps Curls Side right Reps/Minutes 10x Scap Protraction/retraction Sitting Exercise Name Antonio protract/retract with arms sliding fwd on plinth Side right Reps/Minutes 15x Comments Cued to push shoulder fwd into protraction Overdoor rudy Sitting Exercise Name Flex Side right Reps/Minutes 10' Scap pinches Sitting Exercise Name PT stabilizing scapula and assist Side bilateral Reps/Minutes 15x Shoulder ER Sitting Exercise Name Elbow on plinth, shoulder ~60? AB Side right Comments Pt placement on plinth was stretch enough. Table slide Sitting Exercise Name Shoulder flex (98 deg's palm down, ) Side right Reps/Minutes 6 min Standing Exercises Codman's Standing Exercise Name Reviewed after rudy for pt to perform after stressful ex Reps/Minutes 2' Other Exercises Overhead Rudy Other Exercise Name Flex Side right Reps/Minutes 10' Comments Pt moved slow and cautiously for painfree stretch Self-Care/Home Management Treatment Education Other Education Discussed outcome of physician visit and progression on protocol. Reviewed liftingn restriction and ROM goals per protocol Activities Self-Care/Home Management Activities I/S pt in supine scap pinches, sitting R arm table slides for shoulder protraction/ retraction, and sitting passive shoulder ER stretch ( sitting with forearm on table and arm abducted for stretch). PT-OP-R Modalities Start: 07/09/24 13:22 Freq: Status: Active Protocol: Document 08/30/24 10:11 AB (Rec: 08/30/24 12:37 AB Laptop) Hot Pack/Cold Pack Treatment Cold Pack Location R shoulder Patient Position Hooklying Patient Tolerance Good Comments 10 min PT-OP-T Assessment and Plan Start: 07/09/24 13:22 Freq: Status: Active Protocol: Document 09/05/24 13:01 LRN (Rec: 09/05/24 13:44 LRN Laptop) Physical Therapy Assessment Rehab Potential Rehabilitation Potential Good Evaluation Complexity Number of Personal Factors/Comorbidities 1-2 Number of Body Systems Impaired 4 or More Clinical Presentation at Evaluation Evolving Impairments Impairments Activity Tolerance,Functional Activities,Functional Mobility ,Pain,ROM,Soft Tissue Mobility ,Strength Goals Four Impairment Decreased function Short Term Goal (STG) pt able to strengthen the arm to carry light objects STG Duration 09/07/24 Mcfp Goal (LTG) Improve function per UE Quickdash score of 25 or less 09/05/24: UE Quickdash score 77.27 (initial score 81.81) LTG Duration 10/30/24 progressed 09/05/24 Three Impairment Decreased R shoulder strength Short Term Goal (STG) Pt will be able to lift her R arm overhead and rotate at shoulder for independent dressing and personal care ( comb hair). STG Duration 09/07/24 Mcfp Goal (LTG) Pt will be able to cook simple light wgt meals with R arm, and use both arms for ADLs ( bathing and cooking). LTG Duration 10/30/24 Two Impairment Decreased R shoulder PROM Short Term Goal (STG) Improve R shoulder PROM to 50% of normal (per L shoulder PROM) once cleared for all motions of PROM. 07/20/2024 PROM table slide to 81 deg R shoulder this session , ER PROM to 12 in scap plane and flexion to 54 deg in scap plane. 08/08/24: PROM table slide flex is 83-85 deg's. 08/22/24: PROM (sit & sup) sit table slide flex 88?, ER ( scapular plane) 20? after ROM ex. IR-pt can lay hand across abdomen. 08/30/2024 Patient now out of sling in home, wears sling when out in public AROM end of session right shoulder flexion 64 deg. 09/05/24: PROM table slide R shoulder flex: 98? 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 LTG Duration 10/30/24 One Impairment Lacks appropriate self care HEP Short Term Goal (STG) Pt will be on a home exercise program with the assist of her spouse for PROM exercises and pain managment. 07/13/24: I/S pt in self PROM of elbow and forearm sup/pron , and Active wrist flex/ext. Deep breathing and bowel massage. 07/26/2023 Patient reports performing HEP STG Duration 08/03/24 progressed 07/13/24 Mcfp Goal (LTG) Pt will be independent in a self care HEP of R shoulder PROM/AROM/strengthening ex's for return to her prior level of function. 07/13/24: I/S pt in self PROM of elbow and forearm sup/pron , and Active wrist flex/ext. Deep breathing and bowel massage. LTG Duration 10/30/24 progressed 07/13/24 Assessment Summary Assessment Tomorrow pt is 9 wks s/p R RC rpr/biceps tenodesis/ subacromial bursectomy/ extensive SLAP tear debridement, 81% functionally impaired per UE Quickdash. Today, UE Quickdash score indicates pt in 77% impaired ( score 77.25). She has just been cleared to not have to wear her R shoulder AB sling, but states she was instructed to wear a sling while in public, but has no restrictions other than limiting lifting <10#. The pt has made some improvement in her R shoulder flex and tolerance to ER stretch. She is happily reporting improved functional use although still very limited in what she can do. The pt will benefit from continued skilled physical therapy to progress her through phase 4 of protcol received from referring physicians office (9-10 wks s/ p surgery of [facility] sports medicine protocol for RC repair). Physical Therapy Plan Frequency and Duration Frequency of Treatment 2x/Week Duration of treatment (weeks) 16 Plan of Care Start Date 07/10/24 Plan of Care End Date 10/30/24 Therapeutic Interventions Therapeutic Interventions Home Exercise Program,Joint Mobilizations,Manual Therapy, Neuromuscular Re-education, Self-Care/Home Management,Soft Tissue Mobilization,Taping, Therapeutic Activities, Therapeutic Exercises Modalities Cold Pack/Ice Massage,Electric Stimulation,Hot Packs Next Visit Focus/Plan Next Note Type Treatment Note Next Visit Plan No new pt protcols ([place]) received. Protocol received from referring physician office (08/30/24) of same protocol as one previously sent ([facility]). Pt is ~9 wks s/p RC surgery; therefore at transitional phase 3 with lifting restriction <10#. General goals to improve shoulder PROM /AAROM/AROM and dynamic shoulder stability, periscapular strength and gradual return to full function. Continue per protocol, as pt stated MD was pleased with progress. Use of IFC at low level to not create strong ms contraction. Per current protocol for rotator cuff 9 weeks post surgery phase 4 (9-10 wks post surgery): able to initiate scap rectract/depress/protrac with sub scap and teres minor repairs/(previously not initiated as surgery note does not indicate which muscles repaired and have not received response regarding this information) As patient has reached the time in the protocol for protection of these muscles this restriction is no longer relevant. (Progression criteria to phase 5: 155? PROM flex, 45 ? PROM ER & IR in scap plane, 60 PROM 34 @90? ABD, 120? AROM flex, minimal to no substitute patterns w/ AROM, ex's with symmetric scap mechanics, pain <2/10).
--- NOTE | 2024-09-05 17:59 | PT.OPPN ---
Current Diagnoses Primary osteoarthritis, right shoulder (09/05/24) Superior glenoid labrum lesion of right shoulder, subsequent encounter (09/05/24) Strain of muscle(s) and tendon(s) of the rotator cuff of right shoulder, subsequent encounter (09/05/24) Physical Therapy Progress Note PT-OP-A Visit Information Start: 07/09/24 13:22 Freq: Status: Active Protocol: Document 09/05/24 13:01 LRN (Rec: 09/05/24 13:44 LRN Laptop) Out-Patient Physical Therapy Visit Information Visit Information Visit Type Progress Note Visit Note Next MD visit is 10/31/24. Visit Start Time 13:01 Visit Stop Time 13:43 Visit Number 12 Evaluation Information Evaluation Date 07/10/24 Precautions Precautions 07/05/24 P/O arthroscopic R shdr RCR rpr, biceps tenodesis & debridement of extensive superior labral tearing (SLAP tear). 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 No cryotherapy to take due to last time water spilled out. PT-OP-B Current Condition Start: 07/09/24 13:22 Freq: Status: Active Protocol: Document 07/10/24 16:07 LRN (Rec: 07/10/24 18:28 LRN [id number]) Current Condition History of Current Condition Onset Date 07/05/24 Current Complaints R shoulder, neck, biceps and into wrist, and back of shoulder pain History of Current Condition Pt reports 07/05/24 had R rotator cuff repair surgery, biceps repair, and repair of upper shoulder muscles. Not able to verify her surgery as documents not available. Pt states she could lift R arm before the surgery and touch the top of her head, but couldn't reach forward, out to side or backward due to pain (rated 6-7/10). 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 Spouse helps with bathing, dressing, combing hair, and does cooking of meals. Pt is on medications for her pain (reported 8-9/10) and she reports using her ice machine all the time because of the pain. Prior Treatments and Tests No PT prior to surgery, did self exercises. Developmental History Developmental History Pt reports she has always had low back pain since breaking her back in 2014 and wore a cast for 5 months and then soft cast for 2 months. Low Back Pain rated 0-5/10. Treatment Goals Patient/Caregiver Goals Pt goals: - get rotator cuff working and arm working to be able to use both arms for ADLs. - 2 wks post op - able to have PROM - 4 wks - start to lift arm and rotate at shoulder. - 8 wks - lift arm independently for self care of bathing and dressing. -12 wks - pt able to strengthen the arm to carry light objects, comb hair, cook simple meals w/L hand (pt is R handed). Personal Factors Other Personal Factors That May Effect Lives with spouse who can help Therapy/Recovery with home exercises. 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 Long hx of LBP from L3 burst fracture. PT-OP-C Subjective Start: 07/09/24 13:22 Freq: Status: Active Protocol: Document 09/05/24 13:01 LRN (Rec: 09/05/24 13:44 LRN Laptop) OP-PT Subjective Patient Comments Patient Comments Was told to wear the sling when in public. Been doing well because can now encorporate the R arm to do activities. Putting clothes on (pants) has stinging pain from use. Most discomfort with R anterolateral neck/ shoulder. Doing vaccuming and cleaning. MD thought she did well and check ROM. Was told to hang the arm and be careful with what she does. STill under protocol, but gave no restrictions. NExt MD visit is 10/31/24. Patient Questionnaires Quick Dash- Upper Extremity Quick Dash UE Score 77.27 Quick Dash UE Impairment 60 to 79% Impaired (Score 60- 79) PT-OP-H Neuro Start: 07/09/24 13:22 Freq: Status: Active Protocol: Document 07/10/24 16:07 LRN (Rec: 07/10/24 18:28 LRN [id number]) Sensation Evaluation Gross Sensation Gross Sensation WNL Comments Summary Comments Hyper sensitive in the R shoulder and axillary region. PT-OP-J Posture/Palpation/Skin Start: 07/09/24 13:22 Freq: Status: Active Protocol: Document 07/10/24 16:07 LRN (Rec: 07/10/24 18:28 LRN [id number]) Posture Evaluation Position Sitting Head/C-Spine Posture Forward Head Shoulder Posture (L) Elevated Comments Posture Comments Dowagers hump, mildly straightened T/S spine. Palpation Assessment Location R shoulder Palpation Location Below clavicle, shdr to neck, brachium and forearm. Palpation Findings Soft Tissue Tightness,Muscle Guarding,Tenderness PT-OP-K Range of Motion Start: 07/09/24 13:22 Freq: Status: Active Protocol: Document 08/22/24 09:08 LRN (Rec: 08/22/24 10:01 LRN Laptop) Shoulder Goniometric Range of Motion Shoulder Measured in Degrees Right Testing Position Supine Flexion 90 Comments AAROM above. ER in scapular plane: 20-40 deg's Right Passive Shoulder ROM WFL No Testing Position Sitting Flexion 89 Comments ROM taken flex: table slide. ER (20 deg's AB 30 deg's flexed) - 20 deg's after stretching (16 deg's to start) PT-OP-M Strength Start: 07/09/24 13:22 Freq: Status: Active Protocol: Document 07/10/24 16:07 LRN (Rec: 07/10/24 18:28 [facility] [id number]) Shoulder Strength Shoulder Manual Muscle Testing Right Comments Pt under restriction for R shoulder AROM. Pt is able to move her R shoulder minimally; therefore strength appears to be 0-1/10. Left Comments Strength is generally 3-4/5 as pt is able to move against gravity and can overcome resistance of velcro to don/ doff her R shoulder brace. Formal assessment will be performed at next visit. PT-OP-T Assessment and Plan Start: 07/09/24 13:22 Freq: Status: Active Protocol: Document 09/05/24 13:01 LRN (Rec: 09/05/24 13:44 LRN Laptop) Physical Therapy Assessment Rehab Potential Rehabilitation Potential Good Evaluation Complexity Number of Personal Factors/Comorbidities 1-2 Number of Body Systems Impaired 4 or More Clinical Presentation at Evaluation Evolving Impairments Impairments Activity Tolerance,Functional Activities,Functional Mobility ,Pain,ROM,Soft Tissue Mobility ,Strength Goals Four Impairment Decreased function Short Term Goal (STG) pt able to strengthen the arm to carry light objects STG Duration 09/07/24 Intermediate Goal (LTG) Improve function per UE Quickdash score of 25 or less 09/05/24: UE Quickdash score 77.27 (initial score 81.81) LTG Duration 10/30/24 progressed 09/05/24 Three Impairment Decreased R shoulder strength Short Term Goal (STG) Pt will be able to lift her R arm overhead and rotate at shoulder for independent dressing and personal care ( comb hair). STG Duration 09/07/24 Rubber Heel And Sole Press Tender Goal (LTG) Pt will be able to cook simple light wgt meals with R arm, and use both arms for ADLs ( bathing and cooking). LTG Duration 10/30/24 Two Impairment Decreased R shoulder PROM Short Term Goal (STG) Improve R shoulder PROM to 50% of normal (per L shoulder PROM) once cleared for all motions of PROM. 07/20/2024 PROM table slide to 81 deg R shoulder this session , ER PROM to 12 in scap plane and flexion to 54 deg in scap plane. 08/08/24: PROM table slide flex is 83-85 deg's. 08/22/24: PROM (sit & sup) sit table slide flex 88?, ER ( scapular plane) 20? after ROM ex. IR-pt can lay hand across abdomen. 08/30/2024 Patient now out of sling in home, wears sling when out in public AROM end of session right shoulder flexion 64 deg. 09/05/24: PROM table slide R shoulder flex: 98? STG Duration 09/07/24 progressed Intermediate Goal (LTG) Improve R shoulder PROM to 80% -90% of normal ROM (per L shoulder PROM). LTG Duration 10/30/24 One Impairment Lacks appropriate self care HEP Short Term Goal (STG) Pt will be on a home exercise program with the assist of her spouse for PROM exercises and pain managment. 07/13/24: I/S pt in self PROM of elbow and forearm sup/pron , and Active wrist flex/ext. Deep breathing and bowel massage. 07/26/2023 Patient reports performing HEP STG Duration 08/03/24 progressed 07/13/24 Rubber Heel And Sole Press Tender Goal (LTG) Pt will be independent in a self care HEP of R shoulder PROM/AROM/strengthening ex's for return to her prior level of function. 07/13/24: I/S pt in self PROM of elbow and forearm sup/pron , and Active wrist flex/ext. Deep breathing and bowel massage. LTG Duration 10/30/24 progressed 07/13/24 Assessment Summary Assessment Tomorrow pt is 9 wks s/p R RC rpr/biceps tenodesis/ subacromial bursectomy/ extensive SLAP tear debridement, 81% functionally impaired per UE Quickdash. Today, UE Quickdash score indicates pt in 77% impaired ( score 77.25). She has just been cleared to not have to wear her R shoulder AB sling, but states she was instructed to wear a sling while in public, but has no restrictions other than limiting lifting <10#. The pt has made some improvement in her R shoulder flex and tolerance to ER stretch. She is happily reporting improved functional use although still very limited in what she can do. The pt will benefit from continued skilled physical therapy to progress her through phase 4 of protcol received from referring physicians office (9-10 wks s/ p surgery of [facility] sports medicine protocol for RC repair). Physical Therapy Plan Frequency and Duration Frequency of Treatment 2x/Week Duration of treatment (weeks) 16 Plan of Care Start Date 07/10/24 Plan of Care End Date 10/30/24 Therapeutic Interventions Therapeutic Interventions Home Exercise Program,Joint Mobilizations,Manual Therapy, Neuromuscular Re-education, Self-Care/Home Management,Soft Tissue Mobilization,Taping, Therapeutic Activities, Therapeutic Exercises Modalities Cold Pack/Ice Massage,Electric Stimulation,Hot Packs Next Visit Focus/Plan Next Note Type Treatment Note Next Visit Plan No new pt protcols ([place]) received. Protocol received from referring physician office (08/30/24) of same protocol as one previously sent ([facility] sports medicine). Pt is ~9 wks s/p RC surgery; therefore at transitional phase 3 with lifting restriction <10#. General goals to improve shoulder PROM /AAROM/AROM and dynamic shoulder stability, periscapular strength and gradual return to full function. Continue per protocol, as pt stated MD was pleased with progress. Use of IFC at low level to not create strong ms contraction. Per current protocol for rotator cuff 9 weeks post surgery phase 4 (9-10 wks post surgery): able to initiate scap rectract/depress/protrac with sub scap and teres minor repairs/(previously not initiated as surgery note does not indicate which muscles repaired and have not received response regarding this information) As patient has reached the time in the protocol for protection of these muscles this restriction is no longer relevant. (Progression criteria to phase 5: 155? PROM flex, 45 ? PROM ER & IR in scap plane, 60 PROM 34 @90? ABD, 120? AROM flex, minimal to no substitute patterns w/ AROM, ex's with symmetric scap mechanics, pain <2/10).
--- NOTE | 2024-09-13 11:40 | PT.OTN ---
Current Diagnoses Primary osteoarthritis, right shoulder (09/13/24) Superior glenoid labrum lesion of right shoulder, subsequent encounter (09/13/24) Strain of muscle(s) and tendon(s) of the rotator cuff of right shoulder, subsequent encounter (09/13/24) Physical Therapy Treatment Note PT-OP-A Visit Information Start: 07/09/24 13:22 Freq: Status: Active Protocol: Document 09/13/24 10:45 SP (Rec: 09/13/24 11:37 SP [id number]) Out-Patient Physical Therapy Visit Information Visit Information Visit Type Treatment Note Visit Note Next MD visit is 10/31/24. 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 No cryotherapy to take due to last time water spilled out. PT-OP-B Current Condition Start: 07/09/24 13:22 Freq: Status: Active Protocol: Document 07/10/24 16:07 LRN (Rec: 07/10/24 18:28 LRN [id number]) Current Condition History of Current Condition Onset Date 07/05/24 Current Complaints R shoulder, neck, biceps and into wrist, and back of shoulder pain History of Current Condition Pt reports 07/05/24 had R rotator cuff repair surgery, biceps repair, and repair of upper shoulder muscles. Not able to verify her surgery as documents not available. Pt states she could lift R arm before the surgery and touch the top of her head, but couldn't reach forward, out to side or backward due to pain (rated 6-7/10). 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 Spouse helps with bathing, dressing, combing hair, and does cooking of meals. Pt is on medications for her pain (reported 8-9/10) and she reports using her ice machine all the time because of the pain. Prior Treatments and Tests No PT prior to surgery, did self exercises. Developmental History Developmental History Pt reports she has always had low back pain since breaking her back in 2014 and wore a cast for 5 months and then soft cast for 2 months. Low Back Pain rated 0-5/10. Treatment Goals Patient/Caregiver Goals Pt goals: - get rotator cuff working and arm working to be able to use both arms for ADLs. - 2 wks post op - able to have PROM - 4 wks - start to lift arm and rotate at shoulder. - 8 wks - lift arm independently for self care of bathing and dressing. -12 wks - pt able to strengthen the arm to carry light objects, comb hair, cook simple meals w/L hand (pt is R handed). Personal Factors Other Personal Factors That May Effect Lives with spouse who can help Therapy/Recovery with home exercises. 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 Long hx of LBP from L3 burst fracture. PT-OP-C Subjective Start: 07/09/24 13:22 Freq: Status: Active Protocol: Document 09/13/24 10:45 SP (Rec: 09/13/24 11:37 SP [id number]) OP-PT Subjective Patient Comments Patient Comments Pt reports was in alot pain after last tx and tried to use light soup can for bicep was to much. She is having alot more spasming in pec and ce so called physician and has called in Flexoril will fill later. Forgot about lifting and accidently went to lift coffee pot, pretty quickly stopped, also wiping down counter, demonstrates UT and trunk rotation compensation while discussing arrival. She reports her forearm muscles are getting really sore as well not just R UT. PT-OP-H Neuro Start: 07/09/24 13:22 Freq: Status: Active Protocol: Document 07/10/24 16:07 LRN (Rec: 07/10/24 18:28 LRN [id number]) Sensation Evaluation Gross Sensation Gross Sensation WNL Comments Summary Comments Hyper sensitive in the R shoulder and axillary region. PT-OP-J Posture/Palpation/Skin Start: 07/09/24 13:22 Freq: Status: Active Protocol: Document 07/10/24 16:07 LRN (Rec: 07/10/24 18:28 LRN [id number]) Posture Evaluation Position Sitting Head/C-Spine Posture Forward Head Shoulder Posture (L) Elevated Comments Posture Comments Dowagers hump, mildly straightened T/S spine. Palpation Assessment Location R shoulder Palpation Location Below clavicle, shdr to neck, brachium and forearm. Palpation Findings Soft Tissue Tightness,Muscle Guarding,Tenderness PT-OP-K Range of Motion Start: 07/09/24 13:22 Freq: Status: Active Protocol: Document 08/22/24 09:08 LRN (Rec: 08/22/24 10:01 LRN Laptop) Shoulder Goniometric Range of Motion Shoulder Right Testing Position Supine Flexion 90 Comments AAROM above. ER in scapular plane: 20-40 deg's Right Passive Shoulder ROM WFL No Testing Position Sitting Flexion 89 Comments ROM taken flex: table slide. ER (20 deg's AB 30 deg's flexed) - 20 deg's after stretching (16 deg's to start) PT-OP-M Strength Start: 07/09/24 13:22 Freq: Status: Active Protocol: Document 07/10/24 16:07 LRN (Rec: 07/10/24 18:28 LRN [id number]) Shoulder Strength Shoulder Manual Muscle Testing Right Comments Pt under restriction for R shoulder AROM. Pt is able to move her R shoulder minimally; therefore strength appears to be 0-1/10. Left Comments Strength is generally 3-4/5 as pt is able to move against gravity and can overcome resistance of velcro to don/ doff her R shoulder brace. Formal assessment will be performed at next visit. PT-OP-Q Treatments Start: 07/09/24 13:22 Freq: Status: Active Protocol: Document 09/13/24 10:45 SP (Rec: 09/13/24 11:37 SP [id number]) Therapeutic Exercises Supine Exercises AAROM ER w/cane Supine Exercise Name AAROM ER in scapular plane limiting to 20 deg's ER Side right Resistance L help R Equipment Used cane, pillow under humerus Reps/Minutes 10 reps Comments Cued and reported decrease pain R shld post manual, painfree range Sitting Exercises Biceps Curls Side right Resistance AROM Reps/Minutes 10x Comments cued tall posture with scap adducted some, SLOW motion Overdoor rudy Sitting Exercise Name FF- better seated Side right Equipment Used mirror front for self feedback corrections Reps/Minutes 10 reps Comments tactile & VCs LT fac scap inferior glide with UE elevate , less UT compen. 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 compensations. slow fluid glide Table slide Sitting Exercise Name Shoulder flex (palm down, not measured) Side right Resistance AAROM Reps/Minutes 10 reps Comments tactile and VCs scap inferior slow fluid mov't pnfree range into FF Standing Exercises Codman's Standing Exercise Name Reviewed at arrival Equipment Used LUE on table support Reps/Minutes 2' Comments good response, does often at home to help relax shoulder and decrease pn Other Exercises Overhead Rudy Other Exercise Name Flex- Standing Side right Resistance L help R Reps/Minutes 10 reps Comments Cued tall, no UT compensations -c trena, cautiously for painfree stretch Manual Therapy Treatment Consent Patient gave verbal consent for manual Yes treatment Soft Tissue Mobilization Neck Body Location R UT, LS Mobilization Type Rolling Intensity/Depth Superficial Body Position L SL Comments good feedback response R UE Body Location R Rhomboid, Pec, bicep, forearm extensors Mobilization Type Rolling Intensity/Depth Superficial Body Position L SL & seated Comments good response gentle STMs R upper arm and STMs and MWW forearm extensors - cues for self application using LUE Joint Mobilizations R scapulothoracic Jt Direction adduction, depression Grade II Body Position L SL Comments gentle slow fluid pnfree range movement PROM then AAROM, then light manual resisted motion with ed awareness motion during HEP scap retraction, less arm more rhomboid and LT fac. Better response no pain in L SL. Self-Care/Home Management Treatment Education Patient Education Body Mechanics,Home Exercise Program,Joint Protection,Pain Management,Posture,Safety Other Education education for scapular glide slow fluid movement, anatomy for self visual mechanics, SL sleeping pillow between BLEs, under head, behind back, under RUE in L SL- good comfort report. if hooklying: pillows under head, thighs, under RUE shld and arm comfort maybe hand on belly positioning. Continue CP use for pain control. PT-OP-R Modalities Start: 07/09/24 13:22 Freq: Status: Active Protocol: Document 09/13/24 10:45 SP (Rec: 09/13/24 11:37 SP [id number]) Hot Pack/Cold Pack Treatment Cold Pack Location R shoulder Patient Position Sitting Patient Tolerance Good Comments 10 min PT-OP-T Assessment and Plan Start: 07/09/24 13:22 Freq: Status: Active Protocol: Document 09/13/24 10:45 SP (Rec: 09/13/24 11:37 SP [id number]) Physical Therapy Assessment Goals Four Impairment Decreased function Short Term Goal (STG) pt able to strengthen the arm to carry light objects STG Duration 09/07/24 Residential Goal (LTG) Improve function per UE Quickdash score of 25 or less 09/05/24: UE Quickdash score 77.27 (initial score 81.81) LTG Duration 10/30/24 progressed 09/05/24 Three Impairment Decreased R shoulder strength Short Term Goal (STG) Pt will be able to lift her R arm overhead and rotate at shoulder for independent dressing and personal care ( comb hair). STG Duration 09/07/24 Residential Goal (LTG) Pt will be able to cook simple light wgt meals with R arm, and use both arms for ADLs ( bathing and cooking). LTG Duration 10/30/24 Two Impairment Decreased R shoulder PROM Short Term Goal (STG) Improve R shoulder PROM to 50% of normal (per L shoulder PROM) once cleared for all motions of PROM. 07/20/2024 PROM table slide to 81 deg R shoulder this session , ER PROM to 12 in scap plane and flexion to 54 deg in scap plane. 08/08/24: PROM table slide flex is 83-85 deg's. 08/22/24: PROM (sit & sup) sit table slide flex 88?, ER ( scapular plane) 20? after ROM ex. IR-pt can lay hand across abdomen. 08/30/2024 Patient now out of sling in home, wears sling when out in public AROM end of session right shoulder flexion 64 deg. 09/05/24: PROM table slide R shoulder flex: 98? STG Duration 09/07/24 progressed Residential Goal (LTG) Improve R shoulder PROM to 80% -90% of normal ROM (per L shoulder PROM). LTG Duration 10/30/24 One Impairment Lacks appropriate self care HEP Short Term Goal (STG) Pt will be on a home exercise program with the assist of her spouse for PROM exercises and pain managment. 07/13/24: I/S pt in self PROM of elbow and forearm sup/pron , and Active wrist flex/ext. Deep breathing and bowel massage. 07/26/2023 Patient reports performing HEP STG Duration 08/03/24 progressed 07/13/24 Residential Goal (LTG) Pt will be independent in a self care HEP of R shoulder PROM/AROM/strengthening ex's for return to her prior level of function. 07/13/24: I/S pt in self PROM of elbow and forearm sup/pron , and Active wrist flex/ext. Deep breathing and bowel massage. 09/13/24: table slide forward flexion, rudy Flexion ( declined HO) LTG Duration 10/30/24 progressed 08/2124 Assessment Summary Assessment Pt responded well to manual and improved scapular adduction and depression with tactile cues glide L SL, seated. She improves decrease UT compensation use mirror and education on scapular glides. She stated might try get a rudy wheel at [employer] with home rope vs thinks still has a cervical over door traction can use just rope. Physical Therapy Plan Frequency and Duration Frequency of Treatment 2x/Week Duration of treatment (weeks) 16 Plan of Care Start Date 07/10/24 Plan of Care End Date 10/30/24 Therapeutic Interventions Therapeutic Interventions Home Exercise Program,Joint Mobilizations,Manual Therapy, Neuromuscular Re-education, Self-Care/Home Management,Soft Tissue Mobilization,Taping, Therapeutic Activities, Therapeutic Exercises Modalities Cold Pack/Ice Massage,Electric Stimulation,Hot Packs Next Visit Focus/Plan Next Note Type Treatment Note Next Visit Plan REcheck rudy, table slide, manual with tactile scapular glide. POC: No new pt protcols ( Deya) received. Protocol received from referring physician office (08/30/24) of same protocol as one previously sent ([facility] sports medicine). Pt is ~9 wks s/p RC surgery; therefore at transitional phase 3 with lifting restriction <10#. General goals to improve shoulder PROM /AAROM/AROM and dynamic shoulder stability, periscapular strength and gradual return to full function. Continue per protocol, as pt stated was pleased with progress. Use of IFC at low level to not create strong ms contraction. Per current protocol for rotator cuff 9 weeks post surgery phase 4 (9-10 wks post surgery): able to initiate scap rectract/depress/protrac with sub scap and teres minor repairs/(previously not initiated as surgery note does not indicate which muscles repaired and have not received response regarding this information) As patient has reached the time in the protocol for protection of these muscles this restriction is no longer relevant. (Progression criteria to phase 5: 155? PROM flex, 45 ? PROM ER & IR in scap plane, 60 PROM 34 @90? ABD, 120? AROM flex, minimal to no substitute patterns w/ AROM, ex's with symmetric scap mechanics, pain <2/10).
--- NOTE | 2024-09-26 15:45 | PT.OTN ---
Current Diagnoses Primary osteoarthritis, right shoulder (09/26/24) Superior glenoid labrum lesion of right shoulder, subsequent encounter (09/26/24) Strain of muscle(s) and tendon(s) of the rotator cuff of right shoulder, subsequent encounter (09/26/24) Physical Therapy Treatment Note PT-OP-A Visit Information Start: 07/09/24 13:22 Freq: Status: Active Protocol: Document 09/26/24 13:43 LRN (Rec: 09/26/24 15:41 LRN Laptop) Out-Patient Physical Therapy Visit Information Visit Information Visit Type Treatment Note Visit Note Next MD visit is 10/31/24. Visit Start Time 13:44 Visit Stop Time 14:25 Visit Number 14 Evaluation Information Evaluation Date 07/10/24 Precautions Precautions 07/05/24 P/O arthroscopic R shdr RCR rpr, biceps tenodesis & debridement of extensive superior labral tearing (SLAP tear). 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 No cryotherapy to take due to last time water spilled out. PT-OP-B Current Condition Start: 07/09/24 13:22 Freq: Status: Active Protocol: Document 07/10/24 16:07 LRN (Rec: 07/10/24 18:28 LRN [id number]) Current Condition History of Current Condition Onset Date 07/05/24 Current Complaints R shoulder, neck, biceps and into wrist, and back of shoulder pain History of Current Pt reports 07/05/24 had R rotator cuff repair surgery, Condition biceps repair, and repair of upper shoulder muscles. Not able to verify her surgery as documents not available. Pt states she could lift R arm before the surgery and touch the top of her head, but couldn't reach forward, out to side or backward due to pain ( rated 6-7/10). 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 Spouse helps with bathing, dressing, combing hair, and does cooking of meals. Pt is on medications for her pain (reported 8- 9/10) and she reports using her ice machine all the time because of the pain. Prior Treatments and No PT prior to surgery, did self exercises. Tests Developmental History Developmental Pt reports she has always had low back pain since History breaking her back in 2014 and wore a cast for 5 months and then soft cast for 2 months. Low Back Pain rated 0-5/10. Treatment Goals Patient/Caregiver Pt goals: Goals - get rotator cuff working and arm working to be able to use both arms for ADLs. - 2 wks post op - able to have PROM - 4 wks - start to lift arm and rotate at shoulder. - 8 wks - lift arm independently for self care of bathing and dressing. -12 wks - pt able to strengthen the arm to carry light objects, comb hair, cook simple meals w/L hand (pt is R handed). Personal Factors Other Personal Lives with spouse who can help with home exercises. 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 Effect Therapy/ Long hx of LBP from L3 burst fracture. Recovery PT-OP-C Subjective Start: 07/09/24 13:22 Freq: Status: Active Protocol: Document 09/26/24 13:43 LRN (Rec: 09/26/24 15:41 LRN Laptop) OP-PT Subjective Patient Comments Patient Comments Has not been in due to holiday and then she had to travel. Since she has been doing ex's she has been having more R brachium ms spasms. Last session STM was done and had bruising. Was given ms relaxors by and the lump (R biceps) has decreased and pain is down with us of ms relaxors. Will see regular doctor in 2 days to get more pain meds. States she is taking Gabapentin and generic for valium. States combing hair and washing the back is the worst movement, also leaning over and coming back up and raising the arm to the side. Patient Questionnaires Quick Dash- Upper Extremity Quick Dash UE Score 68.18 Quick Dash UE 60 to 79% Impaired (Score 60-79) Impairment OP-PT Pain Assessment Pain Assessment Grid Paper Pain Yes Assessment Grid Completed Location R forearm Pain Location No indication of pain at original locatioin: R forearm Details to wrist Intensity 0 Posterior R shldr/neck Pain Location R posterior shdr/neck Details Intensity 4 Scale Used Numeric (0 - 10) R shoulder Pain Location Anterior & inferior R shoulder Details Intensity 7 Scale Used Numeric (0 - 10) Comments Pain Comments On initial eval verbally she reports her pain is 8-9/10 . Pain behaviours during exercise: Facial grimacing, holding area and guarding, wincing. PT-OP-H Neuro Start: 07/09/24 13:22 Freq: Status: Active Protocol: Document 07/10/24 16:07 LRN (Rec: 07/10/24 18:28 LRN [id number]) Sensation Evaluation Gross Sensation Gross Sensation WNL Comments Summary Comments Hyper sensitive in the R shoulder and axillary region. PT-OP-J Posture/Palpation/Skin Start: 07/09/24 13:22 Freq: Status: Active Protocol: Document 07/10/24 16:07 LRN (Rec: 07/10/24 18:28 LRN [id number]) Posture Evaluation Position Sitting Head/C-Spine Posture Forward Head Shoulder Posture (L) Elevated Comments Posture Comments Dowagers hump, mildly straightened T/S spine. Palpation Assessment Location R shoulder Palpation Location Below clavicle, shdr to neck, brachium and forearm. Palpation Findings Soft Tissue Tightness,Muscle Guarding,Tenderness PT-OP-K Range of Motion Start: 07/09/24 13:22 Freq: Status: Active Protocol: Document 09/26/24 13:43 LRN (Rec: 09/26/24 15:41 LRN Laptop) Shoulder Goniometric Range of Motion Shoulder Right Testing Position Sitting Right Passive Testing Position Supine Flexion 130 Abduction 80 External Rotation at 30 90 degrees Abduction Internal Rotation 40 Right Active Testing Position Standing Flexion 91 Extension 28 Abduction 65 External Rotation at 33 0 degrees Abduction Internal Rotation Lateral buttock Behind Back (text) PT-OP-M Strength Start: 07/09/24 13:22 Freq: Status: Active Protocol: Document 09/26/24 13:43 LRN (Rec: 09/26/24 15:41 LRN Laptop) Shoulder Strength Shoulder Manual Muscle Testing Right Flexion 2 Poor Abduction (C5) 2 Poor External Rotation 2 Poor Internal Rotation 2 Poor Comments Limited due to pain from restricted AROM. PT-OP-Q Treatments Start: 07/09/24 13:22 Freq: Status: Active Protocol: Document 09/26/24 13:43 LRN (Rec: 09/26/24 15:41 LRN Laptop) Therapeutic Exercises Supine Exercises AAROM ER w/cane Supine Exercise Name PT assisted AAROM Flex, ER, IR, circles Side right Reps/Minutes 15' AAROM flex w/cane Supine Exercise Name AAROM flex w/PT assist Side right Reps/Minutes 10x Sidelying Exercises Shoulder ER Side right Reps/Minutes 10x Shoulder AB Sidelying Exercise Assisted AB Name Side right Reps/Minutes 10x Sitting Exercises Shoulder AB Sitting Exercise Table slide for shoulder AB stretch Name Side right Reps/Minutes 10x Shoulder shrugs Side bilateral Reps/Minutes 3' Scap Protraction/retraction Sitting Exercise Antonio protract/retract with arms sliding fwd on plinth Name Side right Reps/Minutes 15x Comments Cued to push shoulder fwd into protraction Table slide Sitting Exercise Shoulder flex (palm down, not measured) Name Side right Resistance AAROM Reps/Minutes 10 reps Comments tactile and VCs scap inferior slow fluid mov't pnfree range into FF Standing Exercises Codman's Standing Exercise Performed thoughout therapy to relieve pain with ex's Name Equipment Used LUE on table support Reps/Minutes 2' Comments good response, does often at home to help relax shoulder and decrease pn Manual Therapy Treatment Consent Patient gave verbal Yes consent for manual treatment Soft Tissue Mobilization R shoulder PROM stretch Body Location Flex, AB, ER, IR Mobilization Type Oscillations Body Position Supine Comments AAROM stretch with JMT at end-range Self-Care/Home Management Treatment Education Other Education Educated pt in use of cryotherapy or MH for pain management throughout the day or anytime pt has or moves into pain. Educated pt in use of soft tissue oscillation for pain management. PT-OP-R Modalities Start: 07/09/24 13:22 Freq: Status: Active Protocol: Document 09/13/24 10:45 SP (Rec: 09/13/24 11:37 SP [id number]) Hot Pack/Cold Pack Treatment Cold Pack Location R shoulder Patient Position Sitting Patient Tolerance Good Comments 10 min PT-OP-T Assessment and Plan Start: 07/09/24 13:22 Freq: Status: Active Protocol: Document 09/26/24 13:43 LRN (Rec: 09/26/24 15:41 LRN Laptop) Physical Therapy Assessment Rehab Potential Rehabilitation Good Potential Evaluation Complexity Number of Personal 1-2 Factors/ Comorbidities Number of Body 4 or More Systems Impaired Clinical Evolving Presentation at Evaluation Impairments Impairments Activity Tolerance,Functional Activities,Functional Mobility,Pain,Posture,ROM,Soft Tissue Mobility,Strength Goals Four Impairment Decreased function Short Term Goal (STG pt able to strengthen the arm to carry light objects. ) 09/26/24: Pt is slowly progressing in he R shoulder strength but is limited by pain. With moderate difficulty can cook light wgt meals with R arm. STG Duration 09/07/24 slow progressiong 09/26/24 Bridge Teacher Goal (LTG) Improve function per UE Quickdash score of 25 or less 09/05/24: UE Quickdash score 77.27 (initial score 81. 81). 09/26/24: UE Quickdash score 68.18 (60-79% impaired) LTG Duration 10/30/24 slow progress 09/26/24 Three Impairment Decreased R shoulder strength Short Term Goal (STG Pt will be able to lift her R arm overhead and rotate ) at shoulder for independent dressing and personal care (comb hair). 09/26/24: Pt not able to lift arm overhead to dress and can't comb her hair w/R arm. R shoulder strength is generally 2/5. STG Duration 10/30/24 Half-Way Goal (LTG) Pt will be able to cook simple light wgt meals with R arm, and use both arms for ADLs (bathing and cooking). 09/26/24: Pt able to cook light wgt meal with R arm used. Not able to bath with R arm. LTG Duration 12/21/24 progressed 09/26/24 Two Impairment Decreased R shoulder PROM Short Term Goal (STG Improve R shoulder PROM to 50% of normal (per L ) shoulder PROM) once cleared for all motions of PROM. 07/20/2024 PROM table slide to 81 deg R shoulder this session, ER PROM to 12 in scap plane and flexion to 54 deg in scap plane. 08/08/24: PROM table slide flex is 83-85 deg's. 08/22/24: PROM (sit & sup) sit table slide flex 88?, ER (scapular plane) 20? after ROM ex. IR-pt can lay hand across abdomen. 08/30/2024 Patient now out of sling in home, wears sling when out in public AROM end of session right shoulder flexion 64 deg. 09/05/24: PROM table slide R shoulder flex: 98?. 09/26/24: PROM supine: flex 130 ?, AB 80?, ER 30? (in 80? AB), IR 40? (in 80? AB). flex and IR is 50% of norm. STG Duration 10/30/24 progressed 09/05/24 Bridge Teacher Goal (LTG) Improve R shoulder PROM to 80%-90% of normal ROM (per L shoulder PROM). LTG Duration 12/21/24 One Impairment Lacks appropriate self care HEP Short Term Goal (STG Pt will be on a home exercise program with the assist ) of her spouse for PROM exercises and pain managment. 07/13/24: I/S pt in self PROM of elbow and forearm sup /pron, and Active wrist flex/ext. Deep breathing and bowel massage. 07/26/2023 Patient reports performing HEP STG Duration 10/30/24 progressed 07/13/24 Half-Way Goal (LTG) Pt will be independent in a self care HEP of R shoulder PROM/AROM/strengthening ex's for return to her prior level of function. 07/13/24: I/S pt in self PROM of elbow and forearm sup /pron, and Active wrist flex/ext. Deep breathing and bowel massage. 09/13/24: table slide forward flexion, rudy Flexion ( declined HO) LTG Duration 12/21/24 progressed 08/2124 Assessment Summary Assessment Pt is 12 wks post-op s/p R RC rpr/biceps tenodesis/ subacromial bursectomy/extensive SLAP tear debridement. She is having trouble with pain management and wants to request more pain meds from machine sole leveler. Pt was planning on seeing her surgeon due to the brachial swelling and pain at biceps, but since she has been using her massage gun the swelling has gone down along with her pain, so she is not planning on seeing her surgeon. She is agreeable to discuss pain management with her primary care physician. The pt is limited by R shoulder ROM due to pain. Physical Therapy Plan Frequency and Duration Frequency of 2x/Week Treatment Duration of 12 treatment (weeks) Plan of Care Start 09/26/24 Date Plan of Care End 12/21/24 Date Therapeutic Interventions Therapeutic Home Exercise Program,Joint Mobilizations,Manual Interventions Therapy,Neuromuscular Re-education,Self-Care/Home Management,Soft Tissue Mobilization,Therapeutic Activities,Therapeutic Exercises Modalities Cold Pack/Ice Massage,Hot Packs Next Visit Focus/Plan Next Note Type Treatment Note Next Visit Plan Cont: PT rehab for s/p R RC rpr/biceps tenodesis/ subacromial bursectomy/extensive SLAP tear debridement. REcheck table slide PROM. Focus on improving PROM/ AAROM. Pt in Phase 5 protocol provided by surgeon for full PROM, AROM with minimal to no substitution patterns and symmetric scapular mechanics. POC: No new pt protcols ([place]) received. Protocol received from referring physician office (08/30/24) of same protocol as one previously sent ([facility] sports medicine). Pt is ~9 wks s/p RC surgery; therefore at transitional phase 3 with lifting restriction <10#. General goals to improve shoulder PROM /AAROM/AROM and dynamic shoulder stability, periscapular strength and gradual return to full function. Continue per protocol, as pt stated MD was pleased with progress. Use of IFC at low level to not create strong ms contraction. Per current protocol for rotator cuff 9 weeks post surgery phase 4 (9-10 wks post surgery): able to initiate scap rectract/depress/protrac with sub scap and teres minor repairs/(previously not initiated as surgery note does not indicate which muscles repaired and have not received response regarding this information) As patient has reached the time in the protocol for protection of these muscles this restriction is no longer relevant. (Progression criteria to phase 5: 155? PROM flex, 45 ? PROM ER & IR in scap plane, 60 PROM 34 @90? ABD, 120? AROM flex, minimal to no substitute patterns w/ AROM, ex's with symmetric scap mechanics, pain <2/10).
--- NOTE | 2024-09-26 15:48 | PT.OPPOC ---
Physical, Occupational & Speech Therapy At [facility] Current Diagnoses Primary osteoarthritis, right shoulder (09/26/24) Superior glenoid labrum lesion of right shoulder, subsequent encounter (09/26/24) Strain of muscle(s) and tendon(s) of the rotator cuff of right shoulder, subsequent encounter (09/26/24) Visit Care Team Role Provider Type ANAID Fagan Family Provider Non-Staff Primary Care Provider Specialty: Medical Address: [address] [place] [address], [id number] Email: Cesar Cole PA-C Attending Provider Non-Staff Referring Provider Specialty: Medical Address: [address] [place] [address]. [facility] [address], [place], [address] Email: Plan Of Care PT-OP-B Current Condition Start: 07/09/24 13:22 Freq: Status: Active Protocol: Document 07/10/24 16:07 LRN (Rec: 07/10/24 18:28 LRN [id number]) Current Condition History of Current Condition Onset Date 07/05/24 Current Complaints R shoulder, neck, biceps and into wrist, and back of shoulder pain History of Current Pt reports 07/05/24 had R rotator cuff repair surgery, Condition biceps repair, and repair of upper shoulder muscles. Not able to verify her surgery as documents not available. Pt states she could lift R arm before the surgery and touch the top of her head, but couldn't reach forward, out to side or backward due to pain ( rated 6-7/10). 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 Spouse helps with bathing, dressing, combing hair, and does cooking of meals. Pt is on medications for her pain (reported 8- 9/10) and she reports using her ice machine all the time because of the pain. Prior Treatments and No PT prior to surgery, did self exercises. Tests Developmental History Developmental Pt reports she has always had low back pain since History breaking her back in 2014 and wore a cast for 5 months and then soft cast for 2 months. Low Back Pain rated 0-5/10. Treatment Goals Patient/Caregiver Pt goals: Goals - get rotator cuff working and arm working to be able to use both arms for ADLs. - 2 wks post op - able to have PROM - 4 wks - start to lift arm and rotate at shoulder. - 8 wks - lift arm independently for self care of bathing and dressing. -12 wks - pt able to strengthen the arm to carry light objects, comb hair, cook simple meals w/L hand (pt is R handed). Personal Factors Other Personal Lives with spouse who can help with home exercises. 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 Effect Therapy/ Long hx of LBP from L3 burst fracture. Recovery PT-OP-T Assessment and Plan Start: 07/09/24 13:22 Freq: Status: Active Protocol: Document 09/26/24 13:43 LRN (Rec: 09/26/24 15:41 LRN Laptop) Physical Therapy Assessment Rehab Potential Rehabilitation Good Potential Evaluation Complexity Number of Personal 1-2 Factors/ Comorbidities Number of Body 4 or More Systems Impaired Clinical Evolving Presentation at Evaluation Impairments Impairments Activity Tolerance,Functional Activities,Functional Mobility,Pain,Posture,ROM,Soft Tissue Mobility,Strength Goals Four Impairment Decreased function Short Term Goal (STG pt able to strengthen the arm to carry light objects. ) 09/26/24: Pt is slowly progressing in he R shoulder strength but is limited by pain. With moderate difficulty can cook light wgt meals with R arm. STG Duration 09/07/24 slow progressiong 09/26/24 Semiconductor Processing Technician Goal (LTG) Improve function per UE Quickdash score of 25 or less 09/05/24: UE Quickdash score 77.27 (initial score 81. 81). 09/26/24: UE Quickdash score 68.18 (60-79% impaired) LTG Duration 10/30/24 slow progress 09/26/24 Three Impairment Decreased R shoulder strength Short Term Goal (STG Pt will be able to lift her R arm overhead and rotate ) at shoulder for independent dressing and personal care (comb hair). 09/26/24: Pt not able to lift arm overhead to dress and can't comb her hair w/R arm. R shoulder strength is generally 2/5. STG Duration 10/30/24 Semiconductor Processing Technician Goal (LTG) Pt will be able to cook simple light wgt meals with R arm, and use both arms for ADLs (bathing and cooking). 09/26/24: Pt able to cook light wgt meal with R arm used. Not able to bath with R arm. LTG Duration 12/21/24 progressed 09/26/24 Two Impairment Decreased R shoulder PROM Short Term Goal (STG Improve R shoulder PROM to 50% of normal (per L ) shoulder PROM) once cleared for all motions of PROM. 07/20/2024 PROM table slide to 81 deg R shoulder this session, ER PROM to 12 in scap plane and flexion to 54 deg in scap plane. 08/08/24: PROM table slide flex is 83-85 deg's. 08/22/24: PROM (sit & sup) sit table slide flex 88?, ER (scapular plane) 20? after ROM ex. IR-pt can lay hand across abdomen. 08/30/2024 Patient now out of sling in home, wears sling when out in public AROM end of session right shoulder flexion 64 deg. 09/05/24: PROM table slide R shoulder flex: 98?. 09/26/24: PROM supine: flex 130 ?, AB 80?, ER 30? (in 80? AB), IR 40? (in 80? AB). flex and IR is 50% of norm. STG Duration 10/30/24 progressed 09/05/24 Detention Goal (LTG) Improve R shoulder PROM to 80%-90% of normal ROM (per L shoulder PROM). LTG Duration 12/21/24 One Impairment Lacks appropriate self care HEP Short Term Goal (STG Pt will be on a home exercise program with the assist ) of her spouse for PROM exercises and pain managment. 07/13/24: I/S pt in self PROM of elbow and forearm sup /pron, and Active wrist flex/ext. Deep breathing and bowel massage. 07/26/2023 Patient reports performing HEP STG Duration 10/30/24 progressed 07/13/24 Semiconductor Processing Technician Goal (LTG) Pt will be independent in a self care HEP of R shoulder PROM/AROM/strengthening ex's for return to her prior level of function. 07/13/24: I/S pt in self PROM of elbow and forearm sup /pron, and Active wrist flex/ext. Deep breathing and bowel massage. 09/13/24: table slide forward flexion, rudy Flexion ( declined HO) LTG Duration 12/21/24 progressed 08/2124 Assessment Summary Assessment Pt is 12 wks post-op s/p R RC rpr/biceps tenodesis/ subacromial bursectomy/extensive SLAP tear debridement. 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 Pt was planning on seeing her surgeon due to the brachial swelling and pain at biceps, but since she has been using her massage gun the swelling has gone down along with her pain, so she is not planning on seeing her surgeon. She is agreeable to discuss pain management with her primary care physician. The pt is limited by R shoulder ROM due to pain. Physical Therapy Plan Frequency and Duration Frequency of 2x/Week Treatment Duration of 12 treatment (weeks) Plan of Care Start 09/26/24 Date Plan of Care End 12/21/24 Date Therapeutic Interventions Therapeutic Home Exercise Program,Joint Mobilizations,Manual Interventions Therapy,Neuromuscular Re-education,Self-Care/Home Management,Soft Tissue Mobilization,Therapeutic Activities,Therapeutic Exercises Modalities Cold Pack/Ice Massage,Hot Packs Next Visit Focus/Plan Next Note Type Treatment Note Next Visit Plan Cont: PT rehab for s/p R RC rpr/biceps tenodesis/ subacromial bursectomy/extensive SLAP tear debridement. REcheck table slide PROM. Focus on improving PROM/ AAROM. Pt in Phase 5 protocol provided by surgeon for full PROM, AROM with minimal to no substitution patterns and symmetric scapular mechanics. POC: No new pt protcols ([place]) received. Protocol received from referring physician office (08/30/24) of same protocol as one previously sent ([facility] sports medicine). Pt is ~9 wks s/p RC surgery; therefore at transitional phase 3 with lifting restriction <10#. General goals to improve shoulder PROM /AAROM/AROM and dynamic shoulder stability, periscapular strength and gradual return to full function. Continue per protocol, as pt stated MD was pleased with progress. Use of IFC at low level to not create strong ms contraction. Per current protocol for rotator cuff 9 weeks post surgery phase 4 (9-10 wks post surgery): able to initiate scap rectract/depress/protrac with sub scap and teres minor repairs/(previously not initiated as surgery note does not indicate which muscles repaired and have not received response regarding this information) As patient has reached the time in the protocol for protection of these muscles this restriction is no longer relevant. (Progression criteria to phase 5: 155? PROM flex, 45 ? PROM ER & IR in scap plane, 60 PROM 34 @90? ABD, 120? AROM flex, minimal to no substitute patterns w/ AROM, ex's with symmetric scap mechanics, pain <2/10). Plan of Care Dates Plan of Care Start Date 09/26/24 Plan of Care End Date 12/21/24 Electronically Signed by: Kyra Gifford, PT 09/26/24 [id number] If you are in agreement with this Plan of Care, please return a signed and dated copy. I have reviewed this Plan of Care and certify that the skilled therapy services above are required to meet the patient?s needs. Physician Signature Date Printed Name and Credentials Clinical Instructor Signature Printed Name and Credentials
--- NOTE | 2024-10-03 12:35 | PT.OTN ---
Current Diagnoses Primary osteoarthritis, right shoulder (10/03/24) Superior glenoid labrum lesion of right shoulder, subsequent encounter (10/03/24) Strain of muscle(s) and tendon(s) of the rotator cuff of right shoulder, subsequent encounter (10/03/24) Physical Therapy Treatment Note PT-OP-A Visit Information Start: 07/09/24 13:22 Freq: Status: Active Protocol: Document 10/03/24 11:35 LRN (Rec: 10/03/24 12:33 LRN Laptop) Out-Patient Physical Therapy Visit Information Visit Information Visit Type Treatment Note Visit Note Next MD visit is 10/31/24. Visit Start Time 11:35 Visit Stop Time 12:21 Visit Number 15 Evaluation Information Evaluation Date 07/10/24 Precautions Precautions 07/05/24 P/O arthroscopic R shdr RCR rpr, biceps tenodesis & debridement of extensive superior labral tearing (SLAP tear). 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 No cryotherapy to take due to last time water spilled out. PT-OP-B Current Condition Start: 07/09/24 13:22 Freq: Status: Active Protocol: Document 07/10/24 16:07 LRN (Rec: 07/10/24 18:28 LRN [id number]) Current Condition History of Current Condition Onset Date 07/05/24 Current Complaints R shoulder, neck, biceps and into wrist, and back of shoulder pain History of Current Pt reports 07/05/24 had R rotator cuff repair surgery, Condition biceps repair, and repair of upper shoulder muscles. Not able to verify her surgery as documents not available. Pt states she could lift R arm before the surgery and touch the top of her head, but couldn't reach forward, out to side or backward due to pain ( rated 6-7/10). 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 Spouse helps with bathing, dressing, combing hair, and does cooking of meals. Pt is on medications for her pain (reported 8- 9/10) and she reports using her ice machine all the time because of the pain. Prior Treatments and No PT prior to surgery, did self exercises. Tests Developmental History Developmental Pt reports she has always had low back pain since History breaking her back in 2014 and wore a cast for 5 months and then soft cast for 2 months. Low Back Pain rated 0-5/10. Treatment Goals Patient/Caregiver Pt goals: Goals - get rotator cuff working and arm working to be able to use both arms for ADLs. - 2 wks post op - able to have PROM - 4 wks - start to lift arm and rotate at shoulder. - 8 wks - lift arm independently for self care of bathing and dressing. -12 wks - pt able to strengthen the arm to carry light objects, comb hair, cook simple meals w/L hand (pt is R handed). Personal Factors Other Personal Lives with spouse who can help with home exercises. 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 Effect Therapy/ Long hx of LBP from L3 burst fracture. Recovery PT-OP-C Subjective Start: 07/09/24 13:22 Freq: Status: Active Protocol: Document 10/03/24 11:35 LRN (Rec: 10/03/24 12:34 LRN Laptop) OP-PT Subjective Patient Comments Patient Comments States she is able to lift her coffee pot with her R arm now. States she is achy and sore in R shoulder and is wearing the sling, but thinks having to wear the sling is making her more uncomfortable. PT-OP-H Neuro Start: 07/09/24 13:22 Freq: Status: Active Protocol: Document 07/10/24 16:07 LRN (Rec: 07/10/24 18:28 LRN [id number]) Sensation Evaluation Gross Sensation Gross Sensation WNL Comments Summary Comments Hyper sensitive in the R shoulder and axillary region. PT-OP-J Posture/Palpation/Skin Start: 07/09/24 13:22 Freq: Status: Active Protocol: Document 07/10/24 16:07 LRN (Rec: 07/10/24 18:28 LRN [id number]) Posture Evaluation Position Sitting Head/C-Spine Posture Forward Head Shoulder Posture (L) Elevated Comments Posture Comments Dowagers hump, mildly straightened T/S spine. Palpation Assessment Location R shoulder Palpation Location Below clavicle, shdr to neck, brachium and forearm. Palpation Findings Soft Tissue Tightness,Muscle Guarding,Tenderness PT-OP-K Range of Motion Start: 07/09/24 13:22 Freq: Status: Active Protocol: Document 10/03/24 11:35 LRN (Rec: 10/03/24 12:33 LRN Laptop) Shoulder Goniometric Range of Motion Shoulder Right Passive Testing Position Sitting Flexion 130 PT-OP-M Strength Start: 07/09/24 13:22 Freq: Status: Active Protocol: Document 09/26/24 13:43 LRN (Rec: 09/26/24 15:41 LRN Laptop) Shoulder Strength Shoulder Manual Muscle Testing Right Flexion 2 Poor Abduction (C5) 2 Poor External Rotation 2 Poor Internal Rotation 2 Poor Comments Limited due to pain from restricted AROM. PT-OP-Q Treatments Start: 07/09/24 13:22 Freq: Status: Active Protocol: Document 10/03/24 11:35 LRN (Rec: 10/03/24 12:33 LRN Laptop) Therapeutic Exercises Sitting Exercises AAROM R shoulder Sitting Exercise Flex, AB, ER for jocelyne contraction at max-range. Name Side right Equipment Used Cane to asst. Reps/Minutes 15' Shoulder AB Sitting Exercise Table slide for shoulder AB stretch Name Side right Reps/Minutes 10x with hold Comments V cues to do a light stretch with long hold Shoulder ER Sitting Exercise Table slide for ER stretch Name Reps/Minutes 10x w/hold Comments V cues to do a light stretch with long hold Table slide Sitting Exercise sliding fwd for Flex and jocelyne lift. Name Side right Resistance AAROM using table for support asst. Reps/Minutes 6' Comments V cues to stretch hold with light stretch, and self stim to decr pain. Standing Exercises Shoulder AAROM Standing Exercise Flex, AB, ER with cane Name Side right Equipment Used Cane Reps/Minutes 8' Shoulder rolls Standing Exercise Rolls fwd (to stretch Rhomboids) and bkwd (to open Name chest). Reps/Minutes 15x each Codman's Standing Exercise Performed thoughout therapy to relieve pain with ex's Name Resistance Pt to use opp hand to asst flexion Equipment Used LUE on table support Reps/Minutes 15x each Comments does often at home to help relax shoulder and decrease pn Manual Therapy Treatment Soft Tissue Mobilization Neck Body Location R UT Mobilization Type Strumming Intensity/Depth Moderate Body Position Sitting Comments Most tight in subocciptal region. PT-OP-R Modalities Start: 07/09/24 13:22 Freq: Status: Active Protocol: Document 09/13/24 10:45 SP (Rec: 09/13/24 11:37 SP [id number]) Hot Pack/Cold Pack Treatment Cold Pack Location R shoulder Patient Position Sitting Patient Tolerance Good Comments 10 min PT-OP-T Assessment and Plan Start: 07/09/24 13:22 Freq: Status: Active Protocol: Document 10/03/24 11:35 LRN (Rec: 10/03/24 12:33 LRN Laptop) Physical Therapy Assessment Goals Three Impairment Decreased R shoulder strength Short Term Goal (STG Pt will be able to lift her R arm overhead and rotate ) at shoulder for independent dressing and personal care (comb hair). 09/26/24: Pt not able to lift arm overhead to dress and can't comb her hair w/R arm. R shoulder strength is generally 2/5. STG Duration 10/30/24 Residential Goal (LTG) Pt will be able to cook simple light wgt meals with R arm, and use both arms for ADLs (bathing and cooking). 09/26/24: Pt able to cook light wgt meal with R arm used. Not able to bath with R arm. LTG Duration 12/21/24 progressed 09/26/24 Two Impairment Decreased R shoulder PROM Short Term Goal (STG Improve R shoulder PROM to 50% of normal (per L ) shoulder PROM) once cleared for all motions of PROM. 07/20/2024 PROM table slide to 81 deg R shoulder this session, ER PROM to 12 in scap plane and flexion to 54 deg in scap plane. 08/08/24: PROM table slide flex is 83-85 deg's. 08/22/24: PROM (sit & sup) sit table slide flex 88?, ER (scapular plane) 20? after ROM ex. IR-pt can lay hand across abdomen. 08/30/2024 Patient now out of sling in home, wears sling when out in public AROM end of session right shoulder flexion 64 deg. 09/05/24: PROM table slide R shoulder flex: 98?. 09/26/24: PROM supine: flex 130 ?, AB 80?, ER 30? (in 80? AB), IR 40? (in 80? AB). flex and IR is 50% of norm. STG Duration 10/30/24 progressed 09/05/24 Residential Goal (LTG) Improve R shoulder PROM to 80%-90% of normal ROM (per L shoulder PROM). LTG Duration 12/21/24 One Impairment Lacks appropriate self care HEP Short Term Goal (STG Pt will be on a home exercise program with the assist ) of her spouse for PROM exercises and pain managment. 07/13/24: I/S pt in self PROM of elbow and forearm sup /pron, and Active wrist flex/ext. Deep breathing and bowel massage. 07/26/2023 Patient reports performing HEP. 10/03/24: Reviewed with pt use of cryotherapy for pain after ex's and recommended pt taking on travel trip for in the car. Pt is now doing AAROM ex's w/o need for spouse assist. STG Duration 10/30/24 (10/03/24: MET GOAL) Residential Goal (LTG) Pt will be independent in a self care HEP of R shoulder PROM/AROM/strengthening ex's for return to her prior level of function. 07/13/24: I/S pt in self PROM of elbow and forearm sup /pron, and Active wrist flex/ext. Deep breathing and bowel massage. 09/13/24: table slide forward flexion, rudy Flexion ( declined HO) LTG Duration 12/21/24 progressed 08/2124 Assessment Summary Assessment Pt is 13 wks+3 days post-op s/p R RC rpr/biceps tenodesis/subacromial bursectomy/extensive SLAP tear debridement. Today, pt is doing much better with pain management and is tolerating therapy well, pushing herself too far with stretches into pain. Pt appears to be trying hard to improve strength over ROM. Stressed pt concentrate on improving mobility, then strength. She is now able to lift her coffee pot with R arm, although demonstrating UT substitution. Physical Therapy Plan Frequency and Duration Frequency of 2x/Week Treatment Duration of 12 treatment (weeks) Plan of Care Start 09/26/24 Date Plan of Care End 12/21/24 Date Next Visit Focus/Plan Next Note Type Treatment Note Next Visit Plan Cont: PT rehab for s/p R RC rpr/biceps tenodesis/ subacromial bursectomy/extensive SLAP tear debridement. Focus on improving PROM/AAROM. Pt in Phase 5 protocol provided by surgeon for full PROM, AROM with minimal to no substitution patterns and symmetric scapular mechanics. POC: No new pt protcols ([place]) received. Protocol received from referring physician office (08/30/24) of same protocol as one previously sent ([facility]). Pt is ~9 wks s/p RC surgery; therefore at transitional phase 3 with lifting restriction <10#. General goals to improve shoulder PROM /AAROM/AROM and dynamic shoulder stability, periscapular strength and gradual return to full function. Continue per protocol, as pt stated MD was pleased with progress. Use of IFC at low level to not create strong ms contraction. Per current protocol for rotator cuff 9 weeks post surgery phase 4 (9-10 wks post surgery): able to initiate scap rectract/depress/protrac with sub scap and teres minor repairs/(previously not initiated as surgery note does not indicate which muscles repaired and have not received response regarding this information) As patient has reached the time in the protocol for protection of these muscles this restriction is no longer relevant. (Progression criteria to phase 5: 155? PROM flex, 45 ? PROM ER & IR in scap plane, 60 PROM 34 @90? ABD, 120? AROM flex, minimal to no substitute patterns w/ AROM, ex's with symmetric scap mechanics, pain <2/10).
--- NOTE | 2024-10-24 16:39 | PT.OTN ---
Current Diagnoses Primary osteoarthritis, right shoulder (10/24/24) Superior glenoid labrum lesion of right shoulder, subsequent encounter (10/24/24) Strain of muscle(s) and tendon(s) of the rotator cuff of right shoulder, subsequent encounter (10/24/24) Physical Therapy Treatment Note PT-OP-A Visit Information Start: 07/09/24 13:22 Freq: Status: Active Protocol: Document 10/24/24 09:50 LRN (Rec: 10/24/24 10:42 LRN Laptop) Out-Patient Physical Therapy Visit Information Visit Information Visit Type Progress Note Visit Note Next MD visit is 10/31/24. Visit Start Time 09:50 Visit Stop Time 10:41 Visit Number 16 (PN on 10/24/24) Evaluation Information Evaluation Date 07/10/24 Precautions Precautions 07/05/24 P/O arthroscopic R shdr RCR rpr, biceps tenodesis & debridement of extensive superior labral tearing (SLAP tear). 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 No cryotherapy to take due to last time water spilled out. PT-OP-B Current Condition Start: 07/09/24 13:22 Freq: Status: Active Protocol: Document 07/10/24 16:07 LRN (Rec: 07/10/24 18:28 LRN [id number]) Current Condition History of Current Condition Onset Date 07/05/24 Current Complaints R shoulder, neck, biceps and into wrist, and back of shoulder pain History of Current Pt reports 07/05/24 had R rotator cuff repair surgery, Condition biceps repair, and repair of upper shoulder muscles. Not able to verify her surgery as documents not available. Pt states she could lift R arm before the surgery and touch the top of her head, but couldn't reach forward, out to side or backward due to pain ( rated 6-7/10). 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 Spouse helps with bathing, dressing, combing hair, and does cooking of meals. Pt is on medications for her pain (reported 8- 9/10) and she reports using her ice machine all the time because of the pain. Prior Treatments and No PT prior to surgery, did self exercises. Tests Developmental History Developmental Pt reports she has always had low back pain since History breaking her back in 2014 and wore a cast for 5 months and then soft cast for 2 months. Low Back Pain rated 0-5/10. Treatment Goals Patient/Caregiver Pt goals: Goals - get rotator cuff working and arm working to be able to use both arms for ADLs. - 2 wks post op - able to have PROM - 4 wks - start to lift arm and rotate at shoulder. - 8 wks - lift arm independently for self care of bathing and dressing. -12 wks - pt able to strengthen the arm to carry light objects, comb hair, cook simple meals w/L hand (pt is R handed). Personal Factors Other Personal Lives with spouse who can help with home exercises. 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 Effect Therapy/ Long hx of LBP from L3 burst fracture. Recovery PT-OP-C Subjective Start: 07/09/24 13:22 Freq: Status: Active Protocol: Document 10/24/24 09:50 LRN (Rec: 10/24/24 10:42 LRN Laptop) OP-PT Subjective Patient Comments Patient Comments States she has been working on her shoulder and had to take Tylenol last night. She has been out of town every other week and has not been able to be scheduled for PT. Patient Questionnaires Quick Dash- Upper Extremity Quick Dash UE Score 45.45 Quick Dash UE 40 to 59% Impaired (Score 40-59) Impairment OP-PT Pain Assessment Pain Assessment Grid Paper Pain Yes Assessment Grid Completed Location R forearm Intensity 0 Scale Used Numeric (0 - 10) R shoulder Pain Location R anterior (4/10) & posterior shoulder (5/10) Details Intensity 5 Scale Used Numeric (0 - 10) Description Aching PT-OP-H Neuro Start: 07/09/24 13:22 Freq: Status: Active Protocol: Document 07/10/24 16:07 LRN (Rec: 07/10/24 18:28 LRN [id number]) Sensation Evaluation Gross Sensation Gross Sensation WNL Comments Summary Comments Hyper sensitive in the R shoulder and axillary region. PT-OP-J Posture/Palpation/Skin Start: 07/09/24 13:22 Freq: Status: Active Protocol: Document 07/10/24 16:07 LRN (Rec: 07/10/24 18:28 LRN [id number]) Posture Evaluation Position Sitting Head/C-Spine Posture Forward Head Shoulder Posture (L) Elevated Comments Posture Comments Dowagers hump, mildly straightened T/S spine. Palpation Assessment Location R shoulder Palpation Location Below clavicle, shdr to neck, brachium and forearm. Palpation Findings Soft Tissue Tightness,Muscle Guarding,Tenderness PT-OP-K Range of Motion Start: 07/09/24 13:22 Freq: Status: Active Protocol: Document 10/24/24 09:50 LRN (Rec: 10/24/24 10:42 LRN Laptop) Shoulder Goniometric Range of Motion Shoulder Left Passive Testing Position Supine Horizontal Adduction 22 Right Passive Testing Position Supine Flexion 150 Abduction 100 Horizontal Adduction 9 External Rotation at 50 90 degrees Abduction Internal Rotation 80 Right Active Testing Position Standing Flexion 112 Extension 33 Abduction 92 External Rotation at 70 0 degrees Abduction Internal Rotation Belt line Behind Back (text) Left Active Testing Position Standing PT-OP-M Strength Start: 07/09/24 13:22 Freq: Status: Active Protocol: Document 09/26/24 13:43 LRN (Rec: 09/26/24 15:41 LRN Laptop) Shoulder Strength Shoulder Manual Muscle Testing Right Flexion 2 Poor Abduction (C5) 2 Poor External Rotation 2 Poor Internal Rotation 2 Poor Comments Limited due to pain from restricted AROM. PT-OP-Q Treatments Start: 07/09/24 13:22 Freq: Status: Active Protocol: Document 10/24/24 09:50 LRN (Rec: 10/24/24 10:42 LRN Laptop) Therapeutic Exercises Supine Exercises AAROM ER w/cane Supine Exercise Name AAROM ER stretch Side right Reps/Minutes 2x Comments ROM taken after stretch AAROM flex w/cane Supine Exercise Name AAROM flex w/PT assist Side right Reps/Minutes 10x Comments ROM taken after stretch Sidelying Exercises Shoulder ER Side right Reps/Minutes 10x Sitting Exercises Shder IR stretch w/belt Sitting Exercise ROM assessed after stretch Name Side right Reps/Minutes 2x Comments Cued to not push into pain, long hold better w/less pain. Shoulder IR Sitting Exercise Stretch: Pull R hand towards L side Name Side right Reps/Minutes 10x Standing Exercises Shoulder AROM Standing Exercise Flex, AB, ER Name Comments ROM taken Shdr ER/IR Standing Exercise strengthening ER/IR w/TBand Name Equipment Used Lev 1 Reps/Minutes 10x each Comments Cued keep elbow in to side. Shdr AB>IR Standing Exercise Arm swings up overhead and descend to behind back for Name IR stretch Side bilateral Reps/Minutes 10x Comments Cued to breath and hold IR for stretch Passive Shdr flex Standing Exercise Arm slide up wall Name Side right Shoulder AAROM Standing Exercise Flex, AB, ER self assist Name Side right Reps/Minutes 8' Codman's Standing Exercise Performed thoughout therapy to relieve pain with ex's Name Resistance Pt to use opp hand to asst flexion Equipment Used LUE on table support Reps/Minutes 15x each Comments does often at home to help relax shoulder and decrease pn PT-OP-R Modalities Start: 07/09/24 13:22 Freq: Status: Active Protocol: Document 09/13/24 10:45 SP (Rec: 09/13/24 11:37 SP [id number]) Hot Pack/Cold Pack Treatment Cold Pack Location R shoulder Patient Position Sitting Patient Tolerance Good Comments 10 min PT-OP-T Assessment and Plan Start: 07/09/24 13:22 Freq: Status: Active Protocol: Document 10/24/24 09:50 LRN (Rec: 10/24/24 10:42 LRN Laptop) Physical Therapy Assessment Rehab Potential Rehabilitation Good Potential Evaluation Complexity Number of Personal 1-2 Factors/ Comorbidities Number of Body 4 or More Systems Impaired Clinical Evolving Presentation at Evaluation Impairments Impairments Activity Tolerance,Functional Activities,Functional Mobility,Pain,Posture,ROM,Soft Tissue Mobility,Strength Goals Four Impairment Decreased function Short Term Goal (STG pt able to strengthen the arm to carry light objects. ) 09/26/24: Pt is slowly progressing in he R shoulder strength but is limited by pain. With moderate difficulty can cook light wgt meals with R arm. 10/24/24: Carrying 13# dog, at times strenuous. STG Duration 09/07/24 (10/24/24: MET GOAL) Forklift Wheel Loader Goal (LTG) Improve function per UE Quickdash score of 25 or less 09/05/24: UE Quickdash score 77.27 (initial score 81. 81). 09/26/24: UE Quickdash score 68.18 (60-79% impaired). 10/24/24: UE Quickdash score 45.45 (40-59% impaired). LTG Duration 12/21/24 progressing 10/24/24 Three Impairment Decreased R shoulder strength Short Term Goal (STG Pt will be able to lift her R arm overhead and rotate ) at shoulder for independent dressing and personal care with minimal difficulty (comb hair). 09/26/24: Pt not able to lift arm overhead to dress and can't comb her hair w/R arm. R shoulder strength is generally 2/5. 10/24/24: Dresses self. Can comb hair with moderate difficulty and takes an extended amt of time. Can wash entire head of hair like normal. STG Duration 10/30/24 progressed 10/24/24 Penitentiary Goal (LTG) Pt will be able to cook simple light wgt meals with cast iron pans with R arm, and use both arms for ADLs ( bathing and cooking). 09/26/24: Pt able to cook light wgt meal with R arm used. Not able to bath with R arm. 10/24/24: Cooking light meals, not able to use cast iron pans. Uses both arms for ADLs. LTG Duration 12/21/24 progressed 10/24/24 Two Impairment Decreased R shoulder PROM Short Term Goal (STG Improve R shoulder PROM to 50% of normal (per L ) shoulder PROM) once cleared for all motions of PROM. 07/20/2024 PROM table slide to 81 deg R shoulder this session, ER PROM to 12 in scap plane and flexion to 54 deg in scap plane. 08/08/24: PROM table slide flex is 83-85 deg's. 08/22/24: PROM (sit & sup) sit table slide flex 88?, ER (scapular plane) 20? after ROM ex. IR-pt can lay hand across abdomen. 08/30/2024 Patient now out of sling in home, wears sling when out in public AROM end of session right shoulder flexion 64 deg. 09/05/24: PROM table slide R shoulder flex: 98?. 09/26/24: PROM supine: flex 130 ?, AB 80?, ER 30? (in 80? AB), IR 40? (in 80? AB). flex and IR is 50% of norm. 10/24/24: PROM supine: flex 150?, AB 100?, ER 50? (in 80? AB), IR 80? (in 80? AB), flex & IR is > 50% normal. STG Duration 10/30/24 (10/24/24: MET GOAL) Forklift Wheel Loader Goal (LTG) Improve R shoulder PROM to 80%-90% of normal ROM (per L shoulder PROM). LTG Duration 12/21/24 One Impairment Lacks appropriate self care HEP Short Term Goal (STG Pt will be on a home exercise program with the assist ) of her spouse for PROM exercises and pain managment. 07/13/24: I/S pt in self PROM of elbow and forearm sup /pron, and Active wrist flex/ext. Deep breathing and bowel massage. 07/26/2023 Patient reports performing HEP. 10/03/24: Reviewed with pt use of cryotherapy for pain after ex's and recommended pt taking on travel trip for in the car. Pt is now doing AAROM ex's w/o need for spouse assist. STG Duration 10/30/24 (10/03/24: MET GOAL) Penitentiary Goal (LTG) Pt will be independent in a self care HEP of R shoulder PROM/AROM/strengthening ex's for return to her prior level of function. 07/13/24: I/S pt in self PROM of elbow and forearm sup /pron, and Active wrist flex/ext. Deep breathing and bowel massage. 09/13/24: table slide forward flexion, rudy Flexion ( declined HO) LTG Duration 12/21/24 progressed 08/2124 Assessment Summary Assessment Pt is a 69 yo female ~18 wks post op (over 3 months) R RC rpr/biceps tenodesis/subacromial bursectomy/ extensive SLAP tear debridement. She was last seen at 13 wks post op when she was cleared of restrictions, with goal of full PROM & AROM. Today, per protocol she was cleared to begin rotator cuff strengthening (with MD clearance). She has improved significantly in her R shoulder PROM and AROM since her last visit, full PROM & AROM has not yet been achieved. Functional shoulder IR (reaching behind her back) is her most limited in mobility. She has improved in function per UE Quickdash score. She was able to perform shoulder ER/ IR with lev 1 TB w/o pain. The pt plans to attend therapy 2x/wk with clearance for strengthening to progress in her function per goals as indicated above. Physical Therapy Plan Frequency and Duration Frequency of 2x/Week Treatment Duration of 12 treatment (weeks) Plan of Care Start 09/26/24 Plan of Care End 12/21/24 Date Therapeutic Interventions Therapeutic Home Exercise Program,Joint Mobilizations,Manual Interventions Therapy,Neuromuscular Re-education,Self-Care/Home Management,Soft Tissue Mobilization,Therapeutic Activities,Therapeutic Exercises Modalities Cold Pack/Ice Massage,Hot Packs Next Visit Focus/Plan Next Note Type Treatment Note Next Visit Plan Cont: PT rehab for s/p R RC rpr/biceps tenodesis/ subacromial bursectomy/extensive SLAP tear debridement per referring physician protocol provided ( [facility] for small to medium sized tears). Focus on improving PROM/AAROM. Pt in Phase 5 protocol provided by surgeon for full PROM, AROM with minimal to no substitution patterns and symmetric scapular mechanics. POC: No new pt protocols ([place]) received. Protocol received from referring physician office () of same protocol as one previously sent ([facility] sports medicine). Use of IFC at low level to not create strong ms contraction.
--- NOTE | 2024-11-02 18:10 | PT.OTN ---
Current Diagnoses Primary osteoarthritis, right shoulder (11/02/24) Superior glenoid labrum lesion of right shoulder, subsequent encounter (11/02/24) Strain of muscle(s) and tendon(s) of the rotator cuff of right shoulder, subsequent encounter (11/02/24) Physical Therapy Treatment Note PT-OP-A Visit Information Start: 07/09/24 13:22 Freq: Status: Active Protocol: Document 11/02/24 13:49 AB (Rec: 11/02/24 15:45 AB [id number]) Out-Patient Physical Therapy Visit Information Visit Information Visit Type Treatment Note Visit Note Access Code [email or web address] Visit Start Time 13:49 Visit Stop Time 14:34 Visit Number 17 (PN on 11/23/24) Number of PERIANESTHESIA MANAGER Visits 1 Evaluation Information Evaluation Date 07/10/24 Precautions Precautions 07/05/24 P/O arthroscopic R shdr RCR rpr, biceps tenodesis & debridement of extensive superior labral tearing (SLAP tear). 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 No cryotherapy to take due to last time water spilled out. PT-OP-B Current Condition Start: 07/09/24 13:22 Freq: Status: Active Protocol: Document 07/10/24 16:07 LRN (Rec: 07/10/24 18:28 LRN [id number]) Current Condition History of Current Condition Onset Date 07/05/24 Current Complaints R shoulder, neck, biceps and into wrist, and back of shoulder pain History of Current Pt reports 07/05/24 had R rotator cuff repair surgery, Condition biceps repair, and repair of upper shoulder muscles. Not able to verify her surgery as documents not available. Pt states she could lift R arm before the surgery and touch the top of her head, but couldn't reach forward, out to side or backward due to pain ( rated 6-7/10). 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 Spouse helps with bathing, dressing, combing hair, and does cooking of meals. Pt is on medications for her pain (reported 8- 9/10) and she reports using her ice machine all the time because of the pain. Prior Treatments and No PT prior to surgery, did self exercises. Tests Developmental History Developmental Pt reports she has always had low back pain since History breaking her back in 2014 and wore a cast for 5 months and then soft cast for 2 months. Low Back Pain rated 0-5/10. Treatment Goals Patient/Caregiver Pt goals: Goals - get rotator cuff working and arm working to be able to use both arms for ADLs. - 2 wks post op - able to have PROM - 4 wks - start to lift arm and rotate at shoulder. - 8 wks - lift arm independently for self care of bathing and dressing. -12 wks - pt able to strengthen the arm to carry light objects, comb hair, cook simple meals w/L hand (pt is R handed). Personal Factors Other Personal Lives with spouse who can help with home exercises. 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 Effect Therapy/ Long hx of LBP from L3 burst fracture. Recovery PT-OP-C Subjective Start: 07/09/24 13:22 Freq: Status: Active Protocol: Document 11/02/24 13:49 AB (Rec: 11/02/24 15:45 AB [id number]) OP-PT Subjective Patient Comments Patient Comments Patient reports she is still achy sore and she told MD, patient comments patient said she can expect that for 9 mos to a year from the time of surgery. Patient reports MD was pleased with her reach and strength and to continue with what we are doing. Also, patient reports MD said the range of motion will come with the strength. Patient reports popping will decrease as strength increases. AROM 118 deg flexion start of session. PT-OP-H Neuro Start: 07/09/24 13:22 Freq: Status: Active Protocol: Document 07/10/24 16:07 LRN (Rec: 07/10/24 18:28 LRN [id number]) Sensation Evaluation Gross Sensation Gross Sensation WNL Comments Summary Comments Hyper sensitive in the R shoulder and axillary region. PT-OP-J Posture/Palpation/Skin Start: 07/09/24 13:22 Freq: Status: Active Protocol: Document 07/10/24 16:07 LRN (Rec: 07/10/24 18:28 LRN [id number]) Posture Evaluation Position Sitting Head/C-Spine Posture Forward Head Shoulder Posture (L) Elevated Comments Posture Comments Dowagers hump, mildly straightened T/S spine. Palpation Assessment Location R shoulder Palpation Location Below clavicle, shdr to neck, brachium and forearm. Palpation Findings Soft Tissue Tightness,Muscle Guarding,Tenderness PT-OP-K Range of Motion Start: 07/09/24 13:22 Freq: Status: Active Protocol: Document 10/24/24 09:50 LRN (Rec: 10/24/24 10:42 LRN Laptop) Shoulder Goniometric Range of Motion Shoulder Left Passive Testing Position Supine Horizontal Adduction 22 Right Passive Testing Position Supine Flexion 150 Abduction 100 Horizontal Adduction 9 External Rotation at 50 90 degrees Abduction Internal Rotation 80 Right Active Testing Position Standing Flexion 112 Extension 33 Abduction 92 External Rotation at 70 0 degrees Abduction Internal Rotation Belt line Behind Back (text) Left Active Testing Position Standing PT-OP-M Strength Start: 07/09/24 13:22 Freq: Status: Active Protocol: Document 09/26/24 13:43 LRN (Rec: 09/26/24 15:41 LRN Laptop) Shoulder Strength Shoulder Manual Muscle Testing Right Flexion 2 Poor Abduction (C5) 2 Poor External Rotation 2 Poor Internal Rotation 2 Poor Comments Limited due to pain from restricted AROM. PT-OP-Q Treatments Start: 07/09/24 13:22 Freq: Status: Active Protocol: Document 11/02/24 13:49 AB (Rec: 11/02/24 15:45 AB [id number]) Therapeutic Exercises Supine Exercises DI and D2 Supine Exercise Name HEP Side right Reps/Minutes X 12 each Comments verbal and tactile cues Sidelying Exercises Shoulder ER Sidelying Exercise AROM Name Side right Reps/Minutes 12x Comments verbal cues to avoid wrist ext Sitting Exercises UT stretch Sitting Exercise holding side of chair HEP Name Side bilateral Reps/Minutes 60 sec X 2 R X 1 L Comments verbal cues Standing Exercises Shdr ER/IR Standing Exercise strengthening ER/IR w/TBand Name Equipment Used Lev 1 Reps/Minutes 12x each Comments monitored for pain Other Exercises Y and T Other Exercise Name ( L UE on raised mat) Side right Reps/Minutes T X 8 Comments Y poor form Manual Therapy Treatment Consent Patient gave verbal Yes consent for manual treatment Soft Tissue Mobilization Neck Body Location R UT Mobilization Type Cross-Friction,Strain/Counterstrain,Strumming,Sustained Pressure Intensity/Depth Moderate Body Position Sitting R UE Body Location R Rhomboid, Pec, bicep, forearm extensors Mobilization Type Rolling Intensity/Depth Superficial Body Position L SL & seated Comments good response gentle STMs R upper arm and STMs and MWW forearm extensors - cues for self application using LUE Joint Mobilizations R scapulothoracic Jt Direction adduction, depression Grade III Body Position L SL Reps/Duration X 10 each PT-OP-R Modalities Start: 07/09/24 13:22 Freq: Status: Active Protocol: Document 09/13/24 10:45 SP (Rec: 09/13/24 11:37 SP [id number]) Hot Pack/Cold Pack Treatment Cold Pack Location R shoulder Patient Position Sitting Patient Tolerance Good Comments 10 min PT-OP-T Assessment and Plan Start: 07/09/24 13:22 Freq: Status: Active Protocol: Document 11/02/24 13:49 AB (Rec: 11/02/24 15:45 AB [id number]) Physical Therapy Assessment Goals Four Impairment Decreased function Short Term Goal (STG pt able to strengthen the arm to carry light objects. ) 09/26/24: Pt is slowly progressing in he R shoulder strength but is limited by pain. With moderate difficulty can cook light wgt meals with R arm. 10/24/24: Carrying 13# dog, at times strenuous. STG Duration 09/07/24 (10/24/24: MET GOAL) Skilled Nursing Goal (LTG) Improve function per UE Quickdash score of 25 or less 09/05/24: UE Quickdash score 77.27 (initial score 81. 81). 09/26/24: UE Quickdash score 68.18 (60-79% impaired). 10/24/24: UE Quickdash score 45.45 (40-59% impaired). LTG Duration 12/21/24 progressing 10/24/24 Three Impairment Decreased R shoulder strength Short Term Goal (STG Pt will be able to lift her R arm overhead and rotate ) at shoulder for independent dressing and personal care with minimal difficulty (comb hair). 09/26/24: Pt not able to lift arm overhead to dress and can't comb her hair w/R arm. R shoulder strength is generally 2/5. 10/24/24: Dresses self. Can comb hair with moderate difficulty and takes an extended amt of time. Can wash entire head of hair like normal. STG Duration 10/30/24 progressed 10/24/24 Uke Operator Goal (LTG) Pt will be able to cook simple light wgt meals with cast iron pans with R arm, and use both arms for ADLs ( bathing and cooking). 09/26/24: Pt able to cook light wgt meal with R arm used. Not able to bath with R arm. 10/24/24: Cooking light meals, not able to use cast iron pans. Uses both arms for ADLs. LTG Duration 12/21/24 progressed 10/24/24 Two Impairment Decreased R shoulder PROM Short Term Goal (STG Improve R shoulder PROM to 50% of normal (per L ) shoulder PROM) once cleared for all motions of PROM. 07/20/2024 PROM table slide to 81 deg R shoulder this session, ER PROM to 12 in scap plane and flexion to 54 deg in scap plane. 08/08/24: PROM table slide flex is 83-85 deg's. 08/22/24: PROM (sit & sup) sit table slide flex 88?, ER (scapular plane) 20? after ROM ex. IR-pt can lay hand across abdomen. 08/30/2024 Patient now out of sling in home, wears sling when out in public AROM end of session right shoulder flexion 64 deg. 09/05/24: PROM table slide R shoulder flex: 98?. 09/26/24: PROM supine: flex 130 ?, AB 80?, ER 30? (in 80? AB), IR 40? (in 80? AB). flex and IR is 50% of norm. 10/24/24: PROM supine: flex 150?, AB 100?, ER 50? (in 80? AB), IR 80? (in 80? AB), flex & IR is > 50% normal. STG Duration 10/30/24 (10/24/24: MET GOAL) Uke Operator Goal (LTG) Improve R shoulder PROM to 80%-90% of normal ROM (per L shoulder PROM). LTG Duration 12/21/24 One Impairment Lacks appropriate self care HEP Short Term Goal (STG Pt will be on a home exercise program with the assist ) of her spouse for PROM exercises and pain managment. 07/13/24: I/S pt in self PROM of elbow and forearm sup /pron, and Active wrist flex/ext. Deep breathing and bowel massage. 07/26/2023 Patient reports performing HEP. 10/03/24: Reviewed with pt use of cryotherapy for pain after ex's and recommended pt taking on travel trip for in the car. Pt is now doing AAROM ex's w/o need for spouse assist. STG Duration 10/30/24 (10/03/24: MET GOAL) Skilled Nursing Goal (LTG) Pt will be independent in a self care HEP of R shoulder PROM/AROM/strengthening ex's for return to her prior level of function. 07/13/24: I/S pt in self PROM of elbow and forearm sup /pron, and Active wrist flex/ext. Deep breathing and bowel massage. 09/13/24: table slide forward flexion, rudy Flexion ( declined HO) 11/02/2024 added D1 and D2 AROM for shoulder to HEP and seated UT stretch due to inc densit/stiffness impacting scapular mobility. LTG Duration 12/21/24 progressed 08/2124 Assessment Summary Assessment Patient 17 weeks one day post op. 115 deg AROM R shoulder flexion end of session, dec likely due to fatigue. Patient rates pain is the same end of session. ROM and strength limitations persist, and continue to impact functional mobility. Patient reports having no pain with shoulder ER and IR with level one band, but can feel it post ie not pain but can feel the area. Physical Therapy Plan Frequency and Duration Frequency of 2x/Week Treatment Duration of 12 treatment (weeks) Plan of Care Start 09/26/24 Date Plan of Care End 12/21/24 Date Therapeutic Interventions Therapeutic Home Exercise Program,Joint Mobilizations,Manual Interventions Therapy,Neuromuscular Re-education,Self-Care/Home Management,Soft Tissue Mobilization,Therapeutic Activities,Therapeutic Exercises Modalities Cold Pack/Ice Massage,Hot Packs Other Referrals/Consults Referrals/Consults Msg left on voicemail at referring provider clinic, Recommended requesting information of the rotator cuff muscles involved in her repair in order to progress pt per protocol. Next Visit Focus/Plan Next Note Type Treatment Note Next Visit Plan Cont: PT rehab for s/p R RC rpr/biceps tenodesis/ subacromial bursectomy/extensive SLAP tear debridement per referring physician protocol provided ( [facility] for small to medium sized tears). Focus on improving PROM/AAROM. Pt in Phase 5 protocol provided by surgeon for full PROM, AROM with minimal to no substitution patterns and symmetric scapular mechanics. POC: No new pt protocols ([place]) received. Protocol received from referring physician office () of same protocol as one previously sent ([facility]). Use of IFC at low level to not create strong ms contraction.
--- NOTE | 2024-11-09 10:41 | PT.OTN ---
Current Diagnoses Primary osteoarthritis, right shoulder (11/09/24) Superior glenoid labrum lesion of right shoulder, subsequent encounter (11/09/24) Strain of muscle(s) and tendon(s) of the rotator cuff of right shoulder, subsequent encounter (11/09/24) Physical Therapy Treatment Note PT-OP-A Visit Information Start: 07/09/24 13:22 Freq: Status: Active Protocol: Document 11/09/24 09:49 AB (Rec: 11/09/24 10:41 AB [id number]) Out-Patient Physical Therapy Visit Information Visit Information Visit Type Treatment Note Visit Note Access Code [email or web address] Visit Start Time 09:49 Visit Stop Time 10:35 Visit Number 18 Number of BLOCK TESTER Visits 2 Evaluation Information Evaluation Date 07/10/24 Precautions Precautions 07/05/24 P/O arthroscopic R shdr RCR rpr, biceps tenodesis & debridement of extensive superior labral tearing (SLAP tear). 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 No cryotherapy to take due to last time water spilled out. PT-OP-B Current Condition Start: 07/09/24 13:22 Freq: Status: Active Protocol: Document 07/10/24 16:07 LRN (Rec: 07/10/24 18:28 LRN [id number]) Current Condition History of Current Condition Onset Date 07/05/24 Current Complaints R shoulder, neck, biceps and into wrist, and back of shoulder pain History of Current Pt reports 07/05/24 had R rotator cuff repair surgery, Condition biceps repair, and repair of upper shoulder muscles. Not able to verify her surgery as documents not available. Pt states she could lift R arm before the surgery and touch the top of her head, but couldn't reach forward, out to side or backward due to pain ( rated 6-7/10). 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 Spouse helps with bathing, dressing, combing hair, and does cooking of meals. Pt is on medications for her pain (reported 8- 9/10) and she reports using her ice machine all the time because of the pain. Prior Treatments and No PT prior to surgery, did self exercises. Tests Developmental History Developmental Pt reports she has always had low back pain since History breaking her back in 2014 and wore a cast for 5 months and then soft cast for 2 months. Low Back Pain rated 0-5/10. Treatment Goals Patient/Caregiver Pt goals: Goals - get rotator cuff working and arm working to be able to use both arms for ADLs. - 2 wks post op - able to have PROM - 4 wks - start to lift arm and rotate at shoulder. - 8 wks - lift arm independently for self care of bathing and dressing. -12 wks - pt able to strengthen the arm to carry light objects, comb hair, cook simple meals w/L hand (pt is R handed). Personal Factors Other Personal Lives with spouse who can help with home exercises. 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 Effect Therapy/ Long hx of LBP from L3 burst fracture. Recovery PT-OP-C Subjective Start: 07/09/24 13:22 Freq: Status: Active Protocol: Document 11/09/24 09:49 AB (Rec: 11/09/24 10:41 AB [id number]) OP-PT Subjective Patient Comments Patient Comments Patient report pain is better 4-5/10 UT/lateral scap area. Patient comments the UT stretch isn't really working. AROM R shoulder flexion 112 deg start of session (Patient comments she didn't stretch this morning. PT-OP-H Neuro Start: 07/09/24 13:22 Freq: Status: Active Protocol: Document 07/10/24 16:07 LRN (Rec: 07/10/24 18:28 LRN [id number]) Sensation Evaluation Gross Sensation Gross Sensation WNL Comments Summary Comments Hyper sensitive in the R shoulder and axillary region. PT-OP-J Posture/Palpation/Skin Start: 07/09/24 13:22 Freq: Status: Active Protocol: Document 07/10/24 16:07 LRN (Rec: 07/10/24 18:28 LRN [id number]) Posture Evaluation Position Sitting Head/C-Spine Posture Forward Head Shoulder Posture (L) Elevated Comments Posture Comments Dowagers hump, mildly straightened T/S spine. Palpation Assessment Location R shoulder Palpation Location Below clavicle, shdr to neck, brachium and forearm. Palpation Findings Soft Tissue Tightness,Muscle Guarding,Tenderness PT-OP-K Range of Motion Start: 07/09/24 13:22 Freq: Status: Active Protocol: Document 10/24/24 09:50 LRN (Rec: 10/24/24 10:42 LRN Laptop) Shoulder Goniometric Range of Motion Shoulder Left Passive Testing Position Supine Horizontal Adduction 22 Right Passive Testing Position Supine Flexion 150 Abduction 100 Horizontal Adduction 9 External Rotation at 50 90 degrees Abduction Internal Rotation 80 Right Active Testing Position Standing Flexion 112 Extension 33 Abduction 92 External Rotation at 70 0 degrees Abduction Internal Rotation Belt line Behind Back (text) Left Active Testing Position Standing PT-OP-M Strength Start: 07/09/24 13:22 Freq: Status: Active Protocol: Document 09/26/24 13:43 LRN (Rec: 09/26/24 15:41 LRN Laptop) Shoulder Strength Shoulder Manual Muscle Testing Right Flexion 2 Poor Abduction (C5) 2 Poor External Rotation 2 Poor Internal Rotation 2 Poor Comments Limited due to pain from restricted AROM. PT-OP-Q Treatments Start: 07/09/24 13:22 Freq: Status: Active Protocol: Document 11/09/24 09:49 AB (Rec: 11/09/24 10:41 AB [id number]) Therapeutic Exercises Supine Exercises DI and D2 Supine Exercise Name HEP Side right Reps/Minutes X 10 each Comments verbal cues to decrease velocity Sitting Exercises UT stretch Sitting Exercise holding side of chair HEP Name Side bilateral Reps/Minutes 60 sec X 2 each side pre and post manual Comments verbal cues Standing Exercises shoulder IR stretch with towel Standing Exercise HEP review Name Side right Reps/Minutes X 15 sec then X 30 sec Comments Patient ed importance of full 30 sec hold for functional outcom Row Standing Exercise HEP Name Side bilateral Resistance level one band Reps/Minutes X 15 Comments verbal cues Shdr ER/IR Standing Exercise strengthening ER/IR w/TBand Name Equipment Used Lev 1 Reps/Minutes 12x each Comments monitored for pain HEP review VC to avoid turning trunk Passive Shdr flex Standing Exercise Arm slide up wall review Name Side right Reps/Minutes X 5 Comments VC to dec velodity Manual Therapy Treatment Consent Patient gave verbal Yes consent for manual treatment Soft Tissue Mobilization Neck Body Location R UT Mobilization Type Cross-Friction,Strain/Counterstrain,Strumming,Sustained Pressure Intensity/Depth Moderate Body Position Sitting R UE Body Location pec Mobilization Type Cross-Friction,Rolling Intensity/Depth Superficial Body Position Hooklying Joint Mobilizations R scapulothoracic Jt Direction adduction, depression Grade III Body Position L SL Reps/Duration X 10 each PT-OP-R Modalities Start: 07/09/24 13:22 Freq: Status: Active Protocol: Document 09/13/24 10:45 SP (Rec: 09/13/24 11:37 SP [id number]) Hot Pack/Cold Pack Treatment Cold Pack Location R shoulder Patient Position Sitting Patient Tolerance Good Comments 10 min PT-OP-T Assessment and Plan Start: 07/09/24 13:22 Freq: Status: Active Protocol: Document 11/09/24 09:49 AB (Rec: 11/09/24 10:41 AB [id number]) Physical Therapy Assessment Goals Four Impairment Decreased function Short Term Goal (STG pt able to strengthen the arm to carry light objects. ) 09/26/24: Pt is slowly progressing in he R shoulder strength but is limited by pain. With moderate difficulty can cook light wgt meals with R arm. 10/24/24: Carrying 13# dog, at times strenuous. STG Duration 09/07/24 (10/24/24: MET GOAL) [employer] Supervisor Goal (LTG) Improve function per UE Quickdash score of 25 or less 09/05/24: UE Quickdash score 77.27 (initial score 81. 81). 09/26/24: UE Quickdash score 68.18 (60-79% impaired). 10/24/24: UE Quickdash score 45.45 (40-59% impaired). LTG Duration 12/21/24 progressing 10/24/24 Three Impairment Decreased R shoulder strength Short Term Goal (STG Pt will be able to lift her R arm overhead and rotate ) at shoulder for independent dressing and personal care with minimal difficulty (comb hair). 09/26/24: Pt not able to lift arm overhead to dress and can't comb her hair w/R arm. R shoulder strength is generally 2/5. 10/24/24: Dresses self. Can comb hair with moderate difficulty and takes an extended amt of time. Can wash entire head of hair like normal. STG Duration 10/30/24 progressed 10/24/24 [facility] Goal (LTG) Pt will be able to cook simple light wgt meals with cast iron pans with R arm, and use both arms for ADLs ( bathing and cooking). 09/26/24: Pt able to cook light wgt meal with R arm used. Not able to bath with R arm. 10/24/24: Cooking light meals, not able to use cast iron pans. Uses both arms for ADLs. LTG Duration 12/21/24 progressed 10/24/24 Two Impairment Decreased R shoulder PROM Short Term Goal (STG Improve R shoulder PROM to 50% of normal (per L ) shoulder PROM) once cleared for all motions of PROM. 07/20/2024 PROM table slide to 81 deg R shoulder this session, ER PROM to 12 in scap plane and flexion to 54 deg in scap plane. 08/08/24: PROM table slide flex is 83-85 deg's. 08/22/24: PROM (sit & sup) sit table slide flex 88?, ER (scapular plane) 20? after ROM ex. IR-pt can lay hand across abdomen. 08/30/2024 Patient now out of sling in home, wears sling when out in public AROM end of session right shoulder flexion 64 deg. 09/05/24: PROM table slide R shoulder flex: 98?. 09/26/24: PROM supine: flex 130 ?, AB 80?, ER 30? (in 80? AB), IR 40? (in 80? AB). flex and IR is 50% of norm. 10/24/24: PROM supine: flex 150?, AB 100?, ER 50? (in 80? AB), IR 80? (in 80? AB), flex & IR is > 50% normal. STG Duration 10/30/24 (10/24/24: MET GOAL) [employer] Supervisor Goal (LTG) Improve R shoulder PROM to 80%-90% of normal ROM (per L shoulder PROM). 11/09/2024 AROM R shoulder flexion 133 deg end of session LTG Duration 12/21/24 One Impairment Lacks appropriate self care HEP Short Term Goal (STG Pt will be on a home exercise program with the assist ) of her spouse for PROM exercises and pain managment. 07/13/24: I/S pt in self PROM of elbow and forearm sup /pron, and Active wrist flex/ext. Deep breathing and bowel massage. 07/26/2023 Patient reports performing HEP. 10/03/24: Reviewed with pt use of cryotherapy for pain after ex's and recommended pt taking on travel trip for in the car. Pt is now doing AAROM ex's w/o need for spouse assist. STG Duration 10/30/24 (10/03/24: MET GOAL) [facility] Goal (LTG) Pt will be independent in a self care HEP of R shoulder PROM/AROM/strengthening ex's for return to her prior level of function. 07/13/24: I/S pt in self PROM of elbow and forearm sup /pron, and Active wrist flex/ext. Deep breathing and bowel massage. 09/13/24: table slide forward flexion, rudy Flexion ( declined HO) 11/02/2024 added D1 and D2 AROM for shoulder to HEP and seated UT stretch due to inc densit/stiffness impacting scapular mobility. LTG Duration 12/21/24 progressed 08/2124 Assessment Summary Assessment AROM R shoulder flexion 131 deg post manual and UT stretch, 134 deg post wall slide X 5, end of session AROM 133 deg flexion right shoulder should allow patient to reach items placed in higher levels in the home. HEP review post manual with addition of rows with level one band added to HEP. Physical Therapy Plan Frequency and Duration Frequency of 2x/Week Treatment Duration of 12 treatment (weeks) Plan of Care Start 09/26/24 Date Plan of Care End 12/21/24 Date Next Visit Focus/Plan Next Note Type Treatment Note Next Visit Plan Cont: PT rehab for s/p R RC rpr/biceps tenodesis/ subacromial bursectomy/extensive SLAP tear debridement per referring physician protocol provided ( [facility] for small to medium sized tears). Focus on improving PROM/AAROM. Pt in Phase 5 protocol provided by surgeon for full PROM, AROM with minimal to no substitution patterns and symmetric scapular mechanics. POC: No new pt protocols ([place]) received. Protocol received from referring physician office () of same protocol as one previously sent ([facility]). Use of IFC at low level to not create strong ms contraction.
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
--- NOTE | 2024-11-23 10:43 | PT.OTN ---
Current Diagnoses Primary osteoarthritis, right shoulder (11/23/24) Superior glenoid labrum lesion of right shoulder, subsequent encounter (11/23/24) Strain of muscle(s) and tendon(s) of the rotator cuff of right shoulder, subsequent encounter (11/23/24) Physical Therapy Treatment Note PT-OP-A Visit Information Start: 07/09/24 13:22 Freq: Status: Active Protocol: Document 11/23/24 09:30 AB (Rec: 11/23/24 10:43 AB [id number]) Out-Patient Physical Therapy Visit Information Visit Information Visit Type Treatment Note Visit Note Next MD visit 01/11/25 Access Code [email or web address] Visit Start Time 09:49 Visit Stop Time 10:35 Visit Number 20 Number of MANAGER PRICING Visits 1 Evaluation Information Evaluation Date 07/10/24 Precautions Precautions 07/05/24 P/O arthroscopic R shdr RCR rpr, biceps tenodesis & debridement of extensive superior labral tearing (SLAP tear). 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 No cryotherapy to take due to last time water spilled out. PT-OP-B Current Condition Start: 07/09/24 13:22 Freq: Status: Active Protocol: Document 07/10/24 16:07 LRN (Rec: 07/10/24 18:28 LRN [id number]) Current Condition History of Current Condition Onset Date 07/05/24 Current Complaints R shoulder, neck, biceps and into wrist, and back of shoulder pain History of Current Pt reports 07/05/24 had R rotator cuff repair surgery, Condition biceps repair, and repair of upper shoulder muscles. Not able to verify her surgery as documents not available. Pt states she could lift R arm before the surgery and touch the top of her head, but couldn't reach forward, out to side or backward due to pain ( rated 6-7/10). 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 Spouse helps with bathing, dressing, combing hair, and does cooking of meals. Pt is on medications for her pain (reported 8- 9/10) and she reports using her ice machine all the time because of the pain. Prior Treatments and No PT prior to surgery, did self exercises. Tests Developmental History Developmental Pt reports she has always had low back pain since History breaking her back in 2014 and wore a cast for 5 months and then soft cast for 2 months. Low Back Pain rated 0-5/10. Treatment Goals Patient/Caregiver Pt goals: Goals - get rotator cuff working and arm working to be able to use both arms for ADLs. - 2 wks post op - able to have PROM - 4 wks - start to lift arm and rotate at shoulder. - 8 wks - lift arm independently for self care of bathing and dressing. -12 wks - pt able to strengthen the arm to carry light objects, comb hair, cook simple meals w/L hand (pt is R handed). Personal Factors Other Personal Lives with spouse who can help with home exercises. 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 Effect Therapy/ Long hx of LBP from L3 burst fracture. Recovery PT-OP-C Subjective Start: 07/09/24 13:22 Freq: Status: Active Protocol: Document 11/23/24 09:30 AB (Rec: 11/23/24 10:43 AB [id number]) OP-PT Subjective Patient Comments Patient Comments Patient reports she is cooking more, not more sore after. Patient reports she is doing good. AROM R shoulder 122 deg in standing start of session. Supine shoulder flexion AROM 148 deg R shoulder start of session, PT-OP-H Neuro Start: 07/09/24 13:22 Freq: Status: Active Protocol: Document 07/10/24 16:07 LRN (Rec: 07/10/24 18:28 LRN [id number]) Sensation Evaluation Gross Sensation Gross Sensation WNL Comments Summary Comments Hyper sensitive in the R shoulder and axillary region. PT-OP-J Posture/Palpation/Skin Start: 07/09/24 13:22 Freq: Status: Active Protocol: Document 07/10/24 16:07 LRN (Rec: 07/10/24 18:28 LRN [id number]) Posture Evaluation Position Sitting Head/C-Spine Posture Forward Head Shoulder Posture (L) Elevated Comments Posture Comments Dowagers hump, mildly straightened T/S spine. Palpation Assessment Location R shoulder Palpation Location Below clavicle, shdr to neck, brachium and forearm. Palpation Findings Soft Tissue Tightness,Muscle Guarding,Tenderness PT-OP-K Range of Motion Start: 07/09/24 13:22 Freq: Status: Active Protocol: Document 11/16/24 09:48 LRN (Rec: 11/16/24 10:33 LRN Laptop) Shoulder Goniometric Range of Motion Shoulder Right Passive Testing Position Supine Flexion 155 Extension 65 Abduction 105 External Rotation at 70 90 degrees Abduction Internal Rotation 45 Comments IR taken with GHJ stabilized (counter pressure anteriorly) Right Active Testing Position Sitting Flexion 135 Extension 45 Abduction 90 Internal Rotation L5 Behind Back (text) Comments Reaching behind head: Between T1-T2 PT-OP-M Strength Start: 07/09/24 13:22 Freq: Status: Active Protocol: Document 09/26/24 13:43 LRN (Rec: 09/26/24 15:41 LRN Laptop) Shoulder Strength Shoulder Manual Muscle Testing Right Flexion 2 Poor Abduction (C5) 2 Poor External Rotation 2 Poor Internal Rotation 2 Poor Comments Limited due to pain from restricted AROM. PT-OP-Q Treatments Start: 07/09/24 13:22 Freq: Status: Active Protocol: Document 11/23/24 09:30 AB (Rec: 11/23/24 10:43 AB [id number]) Therapeutic Exercises Supine Exercises DI and D2 Supine Exercise Name Pt ed to perform at home in reclined and seated Side right Reps/Minutes x 8 then X8 reclined X 8 standing Comments Pt ed rationale of performing reclined and standing for functional outcome AAROM flex w/cane Supine Exercise Name hands clasped Side right Reps/Minutes X 8 with 10 second hold Comments for gravity assisted stretch 153 deg flexion post manual and 8 reps Sidelying Exercises sidelying IR Side right Reps/Minutes X 15 and X 6 Comments verbal cues to perform slowly Standing Exercises shoulder IR stretch with towel Standing Exercise HEP review/ picture and instructions added to handout Name Side right Reps/Minutes 30 sec X 2 and 60 sec X2 Comments VC for 60 sec hold Manual Therapy Treatment Consent Patient gave verbal Yes consent for manual treatment Soft Tissue Mobilization Neck Body Location R UT Mobilization Type Cross-Friction,Strain/Counterstrain,Strumming,Sustained Pressure Intensity/Depth Moderate Body Position Sitting R UE Body Location pec Mobilization Type Cross-Friction,Rolling Intensity/Depth Superficial Body Position Hooklying Joint Mobilizations R scapulothoracic Jt Direction adduction, depression Grade III Body Position L SL Reps/Duration X 10 each PT-OP-R Modalities Start: 07/09/24 13:22 Freq: Status: Active Protocol: Document 09/13/24 10:45 SP (Rec: 09/13/24 11:37 SP [id number]) Hot Pack/Cold Pack Treatment Cold Pack Location R shoulder Patient Position Sitting Patient Tolerance Good Comments 10 min PT-OP-T Assessment and Plan Start: 07/09/24 13:22 Freq: Status: Active Protocol: Document 11/23/24 09:30 AB (Rec: 11/23/24 10:43 AB [id number]) Physical Therapy Assessment Goals Four Impairment Decreased function Short Term Goal (STG pt able to strengthen the arm to carry light objects. ) 09/26/24: Pt is slowly progressing in he R shoulder strength but is limited by pain. With moderate difficulty can cook light wgt meals with R arm. 10/24/24: Carrying 13# dog, at times strenuous. STG Duration 09/07/24 (10/24/24: MET GOAL) Magnetic Tester Goal (LTG) Improve function per UE Quickdash score of 25 or less 09/05/24: UE Quickdash score 77.27 (initial score 81. 81). 09/26/24: UE Quickdash score 68.18 (60-79% impaired). 10/24/24: UE Quickdash score 45.45 (40-59% impaired). 11/16/24: UE Quickdash score 43.18 (40-59% impaired). LTG Duration 01/18/25 progressing 11/16/24 Three Impairment Decreased R shoulder strength Short Term Goal (STG Pt will be able to lift her R arm overhead and rotate ) at shoulder for independent dressing and personal care with minimal difficulty (comb hair). 09/26/24: Pt not able to lift arm overhead to dress and can't comb her hair w/R arm. R shoulder strength is generally 2/5. 10/24/24: Dresses self. Can comb hair with moderate difficulty and takes an extended amt of time. Can wash entire head of hair like normal. 11/16/24: Pt is independent with all self care except putting clip in hair, with moderate difficulty. STG Duration 12/21/24 progressed 11/16/24 Nursing Home Goal (LTG) Pt will be able to cook simple light wgt meals with cast iron pans with R arm, and use both arms for ADLs ( bathing and cooking). 09/26/24: Pt able to cook light wgt meal with R arm used. Not able to bath with R arm. 10/24/24: Cooking light meals, not able to use cast iron pans. Uses both arms for ADLs. 11/16/24: Pt able to cook light meals with cast iron pans. LTG Duration 01/18/25 (11/16/24: MET GOAL) Two Impairment Decreased R shoulder PROM Short Term Goal (STG Improve R shoulder PROM to 50% of normal (per L ) shoulder PROM) once cleared for all motions of PROM. 07/20/2024 PROM table slide to 81 deg R shoulder this session, ER PROM to 12 in scap plane and flexion to 54 deg in scap plane. 08/08/24: PROM table slide flex is 83-85 deg's. 08/22/24: PROM (sit & sup) sit table slide flex 88?, ER (scapular plane) 20? after ROM ex. IR-pt can lay hand across abdomen. 08/30/2024 Patient now out of sling in home, wears sling when out in public AROM end of session right shoulder flexion 64 deg. 09/05/24: PROM table slide R shoulder flex: 98?. 09/26/24: PROM supine: flex 130 ?, AB 80?, ER 30? (in 80? AB), IR 40? (in 80? AB). flex and IR is 50% of norm. 10/24/24: PROM supine: flex 150?, AB 100?, ER 50? (in 80? AB), IR 80? (in 80? AB), flex & IR is > 50% normal. STG Duration 10/30/24 (10/24/24: MET GOAL) Nursing Home Goal (LTG) Improve R shoulder PROM to 80%-90% of normal ROM (per L shoulder PROM). 11/09/2024 AROM R shoulder flexion 133 deg end of session LTG Duration 01/18/25 progressing 11/16/24 One Impairment Lacks appropriate self care HEP Short Term Goal (STG Pt will be on a home exercise program with the assist ) of her spouse for PROM exercises and pain managment. 07/13/24: I/S pt in self PROM of elbow and forearm sup /pron, and Active wrist flex/ext. Deep breathing and bowel massage. 07/26/2023 Patient reports performing HEP. 10/03/24: Reviewed with pt use of cryotherapy for pain after ex's and recommended pt taking on travel trip for in the car. Pt is now doing AAROM ex's w/o need for spouse assist. STG Duration 10/30/24 (10/03/24: MET GOAL) Magnetic Tester Goal (LTG) Pt will be independent in a self care HEP of R shoulder PROM/AROM/strengthening ex's for return to her prior level of function. 07/13/24: I/S pt in self PROM of elbow and forearm sup /pron, and Active wrist flex/ext. Deep breathing and bowel massage. 09/13/24: table slide forward flexion, rudy Flexion ( declined HO) 11/02/2024 added D1 and D2 AROM for shoulder to HEP and seated UT stretch due to inc densit/stiffness impacting scapular mobility. LTG Duration 01/18/25 progressed 09/13/24 Assessment Summary Assessment AROM R shoulder flexion 134 deg in standing during session post manual and PNF diagonals. HEP updated, with PNF diagonals performed in reclined and standing as well as supine. Physical Therapy Plan Frequency and Duration Frequency of 2x/Week Treatment Duration of 9 treatment (weeks) Plan of Care Start 11/16/24 Date Plan of Care End 01/18/25 Date Next Visit Focus/Plan Next Note Type Treatment Note Next Visit Plan KX Next session possibly 1/2 foam roller pec stretch, inc focus on abd, review PNF reclined and standing. Cont: Focus on Passive & then AROM (R shoulder AB, IR) to progress to Phase 6 for strengthening to 80% of L shoulder, ER/IR (60% of L shoulder). PT rehab for s/ p R RC rpr/biceps tenodesis/subacromial bursectomy/ extensive SLAP tear debridement per referring physician protocol provided ([facility] for small to medium sized tears). Pt in Phase 5 protocol provided by surgeon,. progression dependent on achieving full PROM, AROM with minimal to no substitution patterns and symmetric scapular mechanics. Use of IFC at low level to not create strong ms contraction.
--- NOTE | 2024-11-23 10:53 | PT.OTN ---
Current Diagnoses Primary osteoarthritis, right shoulder (11/23/24) Superior glenoid labrum lesion of right shoulder, subsequent encounter (11/23/24) Strain of muscle(s) and tendon(s) of the rotator cuff of right shoulder, subsequent encounter (11/23/24) Physical Therapy Treatment Note PT-OP-A Visit Information Start: 07/09/24 13:22 Freq: Status: Active Protocol: Document 11/23/24 09:30 AB (Rec: 11/23/24 10:43 AB [id number]) Out-Patient Physical Therapy Visit Information Visit Information Visit Type Treatment Note Visit Note Next MD visit 01/11/25 Access Code [email or web address] Visit Start Time 09:49 Visit Stop Time 10:35 Visit Number 20 Number of NUCLEAR RADIATION ENGINEER Visits 1 Evaluation Information Evaluation Date 07/10/24 Precautions Precautions 07/05/24 P/O arthroscopic R shdr RCR rpr, biceps tenodesis & debridement of extensive superior labral tearing (SLAP tear). 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 No cryotherapy to take due to last time water spilled out. PT-OP-B Current Condition Start: 07/09/24 13:22 Freq: Status: Active Protocol: Document 07/10/24 16:07 LRN (Rec: 07/10/24 18:28 LRN [id number]) Current Condition History of Current Condition Onset Date 07/05/24 Current Complaints R shoulder, neck, biceps and into wrist, and back of shoulder pain History of Current Pt reports 07/05/24 had R rotator cuff repair surgery, Condition biceps repair, and repair of upper shoulder muscles. Not able to verify her surgery as documents not available. Pt states she could lift R arm before the surgery and touch the top of her head, but couldn't reach forward, out to side or backward due to pain ( rated 6-7/10). 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 Spouse helps with bathing, dressing, combing hair, and does cooking of meals. Pt is on medications for her pain (reported 8- 9/10) and she reports using her ice machine all the time because of the pain. Prior Treatments and No PT prior to surgery, did self exercises. Tests Developmental History Developmental Pt reports she has always had low back pain since History breaking her back in 2014 and wore a cast for 5 months and then soft cast for 2 months. Low Back Pain rated 0-5/10. Treatment Goals Patient/Caregiver Pt goals: Goals - get rotator cuff working and arm working to be able to use both arms for ADLs. - 2 wks post op - able to have PROM - 4 wks - start to lift arm and rotate at shoulder. - 8 wks - lift arm independently for self care of bathing and dressing. -12 wks - pt able to strengthen the arm to carry light objects, comb hair, cook simple meals w/L hand (pt is R handed). Personal Factors Other Personal Lives with spouse who can help with home exercises. 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 Effect Therapy/ Long hx of LBP from L3 burst fracture. Recovery PT-OP-C Subjective Start: 07/09/24 13:22 Freq: Status: Active Protocol: Document 11/23/24 09:30 AB (Rec: 11/23/24 10:43 AB [id number]) OP-PT Subjective Patient Comments Patient Comments Patient reports she is cooking more, not more sore after. Patient reports she is doing good. AROM R shoulder 122 deg in standing start of session. Supine shoulder flexion AROM 148 deg R shoulder start of session, PT-OP-H Neuro Start: 07/09/24 13:22 Freq: Status: Active Protocol: Document 07/10/24 16:07 LRN (Rec: 07/10/24 18:28 LRN [id number]) Sensation Evaluation Gross Sensation Gross Sensation WNL Comments Summary Comments Hyper sensitive in the R shoulder and axillary region. PT-OP-J Posture/Palpation/Skin Start: 07/09/24 13:22 Freq: Status: Active Protocol: Document 07/10/24 16:07 LRN (Rec: 07/10/24 18:28 LRN [id number]) Posture Evaluation Position Sitting Head/C-Spine Posture Forward Head Shoulder Posture (L) Elevated Comments Posture Comments Dowagers hump, mildly straightened T/S spine. Palpation Assessment Location R shoulder Palpation Location Below clavicle, shdr to neck, brachium and forearm. Palpation Findings Soft Tissue Tightness,Muscle Guarding,Tenderness PT-OP-K Range of Motion Start: 07/09/24 13:22 Freq: Status: Active Protocol: Document 11/16/24 09:48 LRN (Rec: 11/16/24 10:33 LRN Laptop) Shoulder Goniometric Range of Motion Shoulder Right Passive Testing Position Supine Flexion 155 Extension 65 Abduction 105 External Rotation at 70 90 degrees Abduction Internal Rotation 45 Comments IR taken with GHJ stabilized (counter pressure anteriorly) Right Active Testing Position Sitting Flexion 135 Extension 45 Abduction 90 Internal Rotation L5 Behind Back (text) Comments Reaching behind head: Between T1-T2 PT-OP-M Strength Start: 07/09/24 13:22 Freq: Status: Active Protocol: Document 09/26/24 13:43 LRN (Rec: 09/26/24 15:41 LRN Laptop) Shoulder Strength Shoulder Manual Muscle Testing Right Flexion 2 Poor Abduction (C5) 2 Poor External Rotation 2 Poor Internal Rotation 2 Poor Comments Limited due to pain from restricted AROM. PT-OP-Q Treatments Start: 07/09/24 13:22 Freq: Status: Active Protocol: Document 11/23/24 09:30 AB (Rec: 11/23/24 10:43 AB [id number]) Therapeutic Exercises Supine Exercises DI and D2 Supine Exercise Name Pt ed to perform at home in reclined and seated Side right Reps/Minutes x 8 then X8 reclined X 8 standing Comments Pt ed rationale of performing reclined and standing for functional outcome AAROM flex w/cane Supine Exercise Name hands clasped Side right Reps/Minutes X 8 with 10 second hold Comments for gravity assisted stretch 153 deg flexion post manual and 8 reps Sidelying Exercises sidelying IR Side right Reps/Minutes X 15 and X 6 Comments verbal cues to perform slowly Standing Exercises shoulder IR stretch with towel Standing Exercise HEP review/ picture and instructions added to handout Name Side right Reps/Minutes 30 sec X 2 and 60 sec X2 Comments VC for 60 sec hold Manual Therapy Treatment Consent Patient gave verbal Yes consent for manual treatment Soft Tissue Mobilization Neck Body Location R UT Mobilization Type Cross-Friction,Strain/Counterstrain,Strumming,Sustained Pressure Intensity/Depth Moderate Body Position Sitting R UE Body Location pec Mobilization Type Cross-Friction,Rolling Intensity/Depth Superficial Body Position Hooklying Joint Mobilizations R scapulothoracic Jt Direction adduction, depression Grade III Body Position L SL Reps/Duration X 10 each PT-OP-R Modalities Start: 07/09/24 13:22 Freq: Status: Active Protocol: Document 09/13/24 10:45 SP (Rec: 09/13/24 11:37 SP [id number]) Hot Pack/Cold Pack Treatment Cold Pack Location R shoulder Patient Position Sitting Patient Tolerance Good Comments 10 min PT-OP-T Assessment and Plan Start: 07/09/24 13:22 Freq: Status: Active Protocol: Document 11/23/24 09:30 AB (Rec: 11/23/24 10:43 AB [id number]) Physical Therapy Assessment Goals Four Impairment Decreased function Short Term Goal (STG pt able to strengthen the arm to carry light objects. ) 09/26/24: Pt is slowly progressing in he R shoulder strength but is limited by pain. With moderate difficulty can cook light wgt meals with R arm. 10/24/24: Carrying 13# dog, at times strenuous. STG Duration 09/07/24 (10/24/24: MET GOAL) Spike Machine Operator Goal (LTG) Improve function per UE Quickdash score of 25 or less 09/05/24: UE Quickdash score 77.27 (initial score 81. 81). 09/26/24: UE Quickdash score 68.18 (60-79% impaired). 10/24/24: UE Quickdash score 45.45 (40-59% impaired). 11/16/24: UE Quickdash score 43.18 (40-59% impaired). LTG Duration 01/18/25 progressing 11/16/24 Three Impairment Decreased R shoulder strength Short Term Goal (STG Pt will be able to lift her R arm overhead and rotate ) at shoulder for independent dressing and personal care with minimal difficulty (comb hair). 09/26/24: Pt not able to lift arm overhead to dress and can't comb her hair w/R arm. R shoulder strength is generally 2/5. 10/24/24: Dresses self. Can comb hair with moderate difficulty and takes an extended amt of time. Can wash entire head of hair like normal. 11/16/24: Pt is independent with all self care except putting clip in hair, with moderate difficulty. STG Duration 12/21/24 progressed 11/16/24 Residential Goal (LTG) Pt will be able to cook simple light wgt meals with cast iron pans with R arm, and use both arms for ADLs ( bathing and cooking). 09/26/24: Pt able to cook light wgt meal with R arm used. Not able to bath with R arm. 10/24/24: Cooking light meals, not able to use cast iron pans. Uses both arms for ADLs. 11/16/24: Pt able to cook light meals with cast iron pans. LTG Duration 01/18/25 (11/16/24: MET GOAL) Two Impairment Decreased R shoulder PROM Short Term Goal (STG Improve R shoulder PROM to 50% of normal (per L ) shoulder PROM) once cleared for all motions of PROM. 07/20/2024 PROM table slide to 81 deg R shoulder this session, ER PROM to 12 in scap plane and flexion to 54 deg in scap plane. 08/08/24: PROM table slide flex is 83-85 deg's. 08/22/24: PROM (sit & sup) sit table slide flex 88?, ER (scapular plane) 20? after ROM ex. IR-pt can lay hand across abdomen. 08/30/2024 Patient now out of sling in home, wears sling when out in public AROM end of session right shoulder flexion 64 deg. 09/05/24: PROM table slide R shoulder flex: 98?. 09/26/24: PROM supine: flex 130 ?, AB 80?, ER 30? (in 80? AB), IR 40? (in 80? AB). flex and IR is 50% of norm. 10/24/24: PROM supine: flex 150?, AB 100?, ER 50? (in 80? AB), IR 80? (in 80? AB), flex & IR is > 50% normal. STG Duration 10/30/24 (10/24/24: MET GOAL) Residential Goal (LTG) Improve R shoulder PROM to 80%-90% of normal ROM (per L shoulder PROM). 11/09/2024 AROM R shoulder flexion 133 deg end of session LTG Duration 01/18/25 progressing 11/16/24 One Impairment Lacks appropriate self care HEP Short Term Goal (STG Pt will be on a home exercise program with the assist ) of her spouse for PROM exercises and pain managment. 07/13/24: I/S pt in self PROM of elbow and forearm sup /pron, and Active wrist flex/ext. Deep breathing and bowel massage. 07/26/2023 Patient reports performing HEP. 10/03/24: Reviewed with pt use of cryotherapy for pain after ex's and recommended pt taking on travel trip for in the car. Pt is now doing AAROM ex's w/o need for spouse assist. STG Duration 10/30/24 (10/03/24: MET GOAL) Spike Machine Operator Goal (LTG) Pt will be independent in a self care HEP of R shoulder PROM/AROM/strengthening ex's for return to her prior level of function. 07/13/24: I/S pt in self PROM of elbow and forearm sup /pron, and Active wrist flex/ext. Deep breathing and bowel massage. 09/13/24: table slide forward flexion, rudy Flexion ( declined HO) 11/02/2024 added D1 and D2 AROM for shoulder to HEP and seated UT stretch due to inc densit/stiffness impacting scapular mobility. LTG Duration 01/18/25 progressed 09/13/24 Assessment Summary Assessment AROM R shoulder flexion 134 deg in standing during session post manual and PNF diagonals. HEP updated, with PNF diagonals performed in reclined and standing as well as supine. Physical Therapy Plan Frequency and Duration Frequency of 2x/Week Treatment Duration of 9 treatment (weeks) Plan of Care Start 11/16/24 Date Plan of Care End 01/18/25 Date Next Visit Focus/Plan Next Note Type Treatment Note Next Visit Plan KX Next session possibly 1/2 foam roller pec stretch, inc focus on abd, review PNF reclined and standing. Cont: Focus on Passive & then AROM (R shoulder AB, IR) to progress to Phase 6 for strengthening to 80% of L shoulder, ER/IR (60% of L shoulder). PT rehab for s/ p R RC rpr/biceps tenodesis/subacromial bursectomy/ extensive SLAP tear debridement per referring physician protocol provided ([facility] for small to medium sized tears). Pt in Phase 5 protocol provided by surgeon,. progression dependent on achieving full PROM, AROM with minimal to no substitution patterns and symmetric scapular mechanics. Use of IFC at low level to not create strong ms contraction.
--- NOTE | 2024-11-27 19:05 | PT.OTN ---
Current Diagnoses Primary osteoarthritis, right shoulder (11/27/24) Superior glenoid labrum lesion of right shoulder, subsequent encounter (11/27/24) Strain of muscle(s) and tendon(s) of the rotator cuff of right shoulder, subsequent encounter (11/27/24) Physical Therapy Treatment Note PT-OP-A Visit Information Start: 07/09/24 13:22 Freq: Status: Active Protocol: Document 11/27/24 08:56 LRN (Rec: 11/27/24 09:48 LRN Laptop) Out-Patient Physical Therapy Visit Information Visit Information Visit Type Treatment Note Visit Note Next MD visit 01/11/25 Access Code [email or web address] Visit Start Time 08:59 Visit Stop Time 09:43 Visit Number 21 Evaluation Information Evaluation Date 07/10/24 Precautions Precautions 07/05/24 P/O arthroscopic R shdr RCR rpr, biceps tenodesis & debridement of extensive superior labral tearing (SLAP tear). 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 No cryotherapy to take due to last time water spilled out. PT-OP-B Current Condition Start: 07/09/24 13:22 Freq: Status: Active Protocol: Document 07/10/24 16:07 LRN (Rec: 07/10/24 18:28 LRN [id number]) Current Condition History of Current Condition Onset Date 07/05/24 Current Complaints R shoulder, neck, biceps and into wrist, and back of shoulder pain History of Current Pt reports 07/05/24 had R rotator cuff repair surgery, Condition biceps repair, and repair of upper shoulder muscles. Not able to verify her surgery as documents not available. Pt states she could lift R arm before the surgery and touch the top of her head, but couldn't reach forward, out to side or backward due to pain ( rated 6-7/10). 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 Spouse helps with bathing, dressing, combing hair, and does cooking of meals. Pt is on medications for her pain (reported 8- 9/10) and she reports using her ice machine all the time because of the pain. Prior Treatments and No PT prior to surgery, did self exercises. Tests Developmental History Developmental Pt reports she has always had low back pain since History breaking her back in 2014 and wore a cast for 5 months and then soft cast for 2 months. Low Back Pain rated 0-5/10. Treatment Goals Patient/Caregiver Pt goals: Goals - get rotator cuff working and arm working to be able to use both arms for ADLs. - 2 wks post op - able to have PROM - 4 wks - start to lift arm and rotate at shoulder. - 8 wks - lift arm independently for self care of bathing and dressing. -12 wks - pt able to strengthen the arm to carry light objects, comb hair, cook simple meals w/L hand (pt is R handed). Personal Factors Other Personal Lives with spouse who can help with home exercises. 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 Effect Therapy/ Long hx of LBP from L3 burst fracture. Recovery PT-OP-C Subjective Start: 07/09/24 13:22 Freq: Status: Active Protocol: Document 11/27/24 08:56 LRN (Rec: 11/27/24 09:48 LRN Laptop) OP-PT Subjective Patient Comments Patient Comments States she was really sore after last session. Feels she has gained some mobility. To start: R shoulder AROM flex is 123 deg's. PT-OP-H Neuro Start: 07/09/24 13:22 Freq: Status: Active Protocol: Document 07/10/24 16:07 LRN (Rec: 07/10/24 18:28 LRN [id number]) Sensation Evaluation Gross Sensation Gross Sensation WNL Comments Summary Comments Hyper sensitive in the R shoulder and axillary region. PT-OP-J Posture/Palpation/Skin Start: 07/09/24 13:22 Freq: Status: Active Protocol: Document 07/10/24 16:07 LRN (Rec: 07/10/24 18:28 LRN [id number]) Posture Evaluation Position Sitting Head/C-Spine Posture Forward Head Shoulder Posture (L) Elevated Comments Posture Comments Dowagers hump, mildly straightened T/S spine. Palpation Assessment Location R shoulder Palpation Location Below clavicle, shdr to neck, brachium and forearm. Palpation Findings Soft Tissue Tightness,Muscle Guarding,Tenderness PT-OP-K Range of Motion Start: 07/09/24 13:22 Freq: Status: Active Protocol: Document 11/16/24 09:48 LRN (Rec: 11/16/24 10:33 LRN Laptop) Shoulder Goniometric Range of Motion Shoulder Right Passive Testing Position Supine Flexion 155 Extension 65 Abduction 105 External Rotation at 70 90 degrees Abduction Internal Rotation 45 Comments IR taken with GHJ stabilized (counter pressure anteriorly) Right Active Testing Position Sitting Flexion 135 Extension 45 Abduction 90 Internal Rotation L5 Behind Back (text) Comments Reaching behind head: Between T1-T2 PT-OP-M Strength Start: 07/09/24 13:22 Freq: Status: Active Protocol: Document 09/26/24 13:43 LRN (Rec: 09/26/24 15:41 LRN Laptop) Shoulder Strength Shoulder Manual Muscle Testing Right Flexion 2 Poor Abduction (C5) 2 Poor External Rotation 2 Poor Internal Rotation 2 Poor Comments Limited due to pain from restricted AROM. PT-OP-Q Treatments Start: 07/09/24 13:22 Freq: Status: Active Protocol: Document 11/27/24 08:56 LRN (Rec: 11/27/24 09:48 LRN Laptop) Cardio Equipment Upper Body Ergometer (UBE) Duration (Minutes) 5 Seat Position 7 Height 6 Other R shoulder AROM: flex 123 degs Therapeutic Exercises Supine Exercises DI and D2 Side right Equipment Used Walking pole for R UE positional hold and release Reps/Minutes 30 SH x 6 Sitting Exercises Shoulder AB Sitting Exercise Pec stretch Name Equipment Used 1/2 roll tried - DC due to pain. Walking cane for R UE support Reps/Minutes 30 SH x 2 each Standing Exercises Scap protract/retract Standing Exercise Push up plus with wall push up Name Reps/Minutes 5x 3 Comments Much cuing for scapular protraction and return to rest (retraction). AROM D1/D2 Side bilateral Reps/Minutes 10x AAROM D1/D2 Standing Exercise AROM R side only, then both sides w/Scapular MWM Name support Side right Equipment Used Overdoor rudy Reps/Minutes 10x Passive shoulder ER Standing Exercise PROM Name shoulder IR stretch with towel Side right Reps/Minutes 60 sec X2 Comments IR behind back: R to T12 (L side T9) Codman's Standing Exercise Codman's after wall stretching Name Side right Reps/Minutes 3' Other Exercises 4 pt Push Up Plus Reps/Minutes x 5 Comments Much cuing for scapular protraction and return to rest (retraction) PT-OP-R Modalities Start: 07/09/24 13:22 Freq: Status: Active Protocol: Document 09/13/24 10:45 SP (Rec: 09/13/24 11:37 SP [id number]) Hot Pack/Cold Pack Treatment Cold Pack Location R shoulder Patient Position Sitting Patient Tolerance Good Comments 10 min PT-OP-T Assessment and Plan Start: 07/09/24 13:22 Freq: Status: Active Protocol: Document 11/27/24 08:56 LRN (Rec: 11/27/24 09:48 LRN Laptop) Physical Therapy Assessment Goals Four Impairment Decreased function Short Term Goal (STG pt able to strengthen the arm to carry light objects. ) 09/26/24: Pt is slowly progressing in he R shoulder strength but is limited by pain. With moderate difficulty can cook light wgt meals with R arm. 10/24/24: Carrying 13# dog, at times strenuous. STG Duration 09/07/24 (10/24/24: MET GOAL) Alf Goal (LTG) Improve function per UE Quickdash score of 25 or less 09/05/24: UE Quickdash score 77.27 (initial score 81. 81). 09/26/24: UE Quickdash score 68.18 (60-79% impaired). 10/24/24: UE Quickdash score 45.45 (40-59% impaired). 11/16/24: UE Quickdash score 43.18 (40-59% impaired). LTG Duration 01/18/25 progressing 11/16/24 Three Impairment Decreased R shoulder strength Short Term Goal (STG Pt will be able to lift her R arm overhead and rotate ) at shoulder for independent dressing and personal care with minimal difficulty (comb hair). 09/26/24: Pt not able to lift arm overhead to dress and can't comb her hair w/R arm. R shoulder strength is generally 2/5. 10/24/24: Dresses self. Can comb hair with moderate difficulty and takes an extended amt of time. Can wash entire head of hair like normal. 11/16/24: Pt is independent with all self care except putting clip in hair, with moderate difficulty. STG Duration 12/21/24 progressed 11/16/24 Stewardesses Teacher Goal (LTG) Pt will be able to cook simple light wgt meals with cast iron pans with R arm, and use both arms for ADLs ( bathing and cooking). 09/26/24: Pt able to cook light wgt meal with R arm used. Not able to bath with R arm. 10/24/24: Cooking light meals, not able to use cast iron pans. Uses both arms for ADLs. 11/16/24: Pt able to cook light meals with cast iron pans. LTG Duration 01/18/25 (11/16/24: MET GOAL) Two Impairment Decreased R shoulder PROM Short Term Goal (STG Improve R shoulder PROM to 50% of normal (per L ) shoulder PROM) once cleared for all motions of PROM. 07/20/2024 PROM table slide to 81 deg R shoulder this session, ER PROM to 12 in scap plane and flexion to 54 deg in scap plane. 08/08/24: PROM table slide flex is 83-85 deg's. 08/22/24: PROM (sit & sup) sit table slide flex 88?, ER (scapular plane) 20? after ROM ex. IR-pt can lay hand across abdomen. 08/30/2024 Patient now out of sling in home, wears sling when out in public AROM end of session right shoulder flexion 64 deg. 09/05/24: PROM table slide R shoulder flex: 98?. 09/26/24: PROM supine: flex 130 ?, AB 80?, ER 30? (in 80? AB), IR 40? (in 80? AB). flex and IR is 50% of norm. 10/24/24: PROM supine: flex 150?, AB 100?, ER 50? (in 80? AB), IR 80? (in 80? AB), flex & IR is > 50% normal. STG Duration 10/30/24 (10/24/24: MET GOAL) Stewardesses Teacher Goal (LTG) Improve R shoulder PROM to 80%-90% of normal ROM (per L shoulder PROM). 11/09/2024 AROM R shoulder flexion 133 deg end of session LTG Duration 01/18/25 progressing 11/16/24 One Impairment Lacks appropriate self care HEP Short Term Goal (STG Pt will be on a home exercise program with the assist ) of her spouse for PROM exercises and pain managment. 07/13/24: I/S pt in self PROM of elbow and forearm sup /pron, and Active wrist flex/ext. Deep breathing and bowel massage. 07/26/2023 Patient reports performing HEP. 10/03/24: Reviewed with pt use of cryotherapy for pain after ex's and recommended pt taking on travel trip for in the car. Pt is now doing AAROM ex's w/o need for spouse assist. STG Duration 10/30/24 (10/03/24: MET GOAL) Stewardesses Teacher Goal (LTG) Pt will be independent in a self care HEP of R shoulder PROM/AROM/strengthening ex's for return to her prior level of function. 07/13/24: I/S pt in self PROM of elbow and forearm sup /pron, and Active wrist flex/ext. Deep breathing and bowel massage. 09/13/24: table slide forward flexion, rudy Flexion ( declined HO) 11/02/2024 added D1 and D2 AROM for shoulder to HEP and seated UT stretch due to inc densit/stiffness impacting scapular mobility. LTG Duration 01/18/25 progressed 09/13/24 Assessment Summary Assessment 69 yo female a little over 19 wks post op (over 3 months) R RC rpr/biceps tenodesis/subacromial bursectomy/extensive SLAP tear debridement. Her R shoulder active flexion ROM improved from 134 to 139 deg's. Pt can now put her air up with a clip using the R arm. Pec stretch using 1/2 roll is too aggressive as she gets a good stretch lying on plinth with arm in Abduction for pec min/kimber stretch. PNF pattern ex have been very helpful in improving motion. Shoulder IR ROM is improving (see behind back stretch). Physical Therapy Plan Frequency and Duration Frequency of 2x/Week Treatment Duration of 9 treatment (weeks) Plan of Care Start 11/16/24 Date Plan of Care End 01/18/25 Date Next Visit Focus/Plan Next Note Type Treatment Note Next Visit Plan KX. Next Strengthen serratus anterior & RC to achieve proper scapulohumeral rhythm with R arm AROM. Focus on abd with good R scapulohumeral and shoulder postion motion. Cont: Focus on Passive & then AROM (R shoulder AB, IR) to progress to Phase 6 for strengthening to 80% of L shoulder, ER/IR (60% of L shoulder). PT rehab for s/p R RC rpr/biceps tenodesis/subacromial bursectomy/extensive SLAP tear debridement per referring physician protocol provided ( [facility] for small to medium sized tears). Pt in Phase 5 protocol provided by surgeon,. progression dependent on achieving full PROM, AROM with minimal to no substitution patterns and symmetric scapular mechanics. Use of IFC at low level to not create strong ms contraction.
--- NOTE | 2024-11-29 09:56 | PT.OTN ---
Current Diagnoses Primary osteoarthritis, right shoulder (11/29/24) Superior glenoid labrum lesion of right shoulder, subsequent encounter (11/29/24) Strain of muscle(s) and tendon(s) of the rotator cuff of right shoulder, subsequent encounter (11/29/24) Physical Therapy Treatment Note PT OP: Cervical/Upper Extremity Start: 11/29/24 09:06 Freq: Status: Active Protocol: Document 11/29/24 09:07 AB (Rec: 11/29/24 09:51 AB [id number]) Out-Patient Physical Therapy Visit Information Visit Information Visit Type Treatment Note Visit Note Next MD visit 01/11/25 Access Code [email or web address] Visit Start Time 09:07 Visit Stop Time 09:48 Visit Number 22 Number of [employer]CK [employer] Visits 1 Progress Note Due 12/16/24 OP-PT Subjective Patient Comments Patient Comments Patient reports she is sore post each session, only did the standing exercises yesterday. Patient rates pain 4 .5/10 R shoulder and reports she took a Tylenol this morning. AROM 128 deg start of session R shoulder flexion. Therapeutic Exercises Supine Exercises mini band Supine Exercise Name shoulder ER with band with flexion Side bilateral Resistance level one band Reps/Minutes X 10 Comments Pt ed single thickness band, verbal and visual cues monitored for pain serratus punch Supine Exercise Name HEP Reps/Minutes X 15 without weight X 15 with 1 lb Sidelying Exercises sidelying IR Side right Reps/Minutes X15 Comments post manual Shoulder ER Side right Reps/Minutes X 15 Comments post manual Standing Exercises pec stretch Standing Exercise 90dec on door frame Name Side right Reps/Minutes 60 sec X 1 Comments verbal cues Shdr ER/IR Side right Resistance level one band Reps/Minutes X 15 eac direction Comments Verbal cues to avoid moving trunk Manual Therapy Treatment Consent Patient gave verbal Yes consent for manual treatment Soft Tissue Mobilization Neck Body Location R UT Mobilization Type Cross-Friction,Strain/Counterstrain,Strumming,Sustained Pressure Intensity/Depth Moderate Body Position Sitting R UE Body Location pec Mobilization Type Cross-Friction,Rolling Intensity/Depth Superficial Body Position Hooklying Joint Mobilizations R scapulothoracic Jt Direction adduction, depression Grade III Body Position L SL Reps/Duration X 10 each Physical Therapy Assessment Goals Four Impairment Decreased function Short Term Goal (STG pt able to strengthen the arm to carry light objects. ) 09/26/24: Pt is slowly progressing in he R shoulder strength but is limited by pain. With moderate difficulty can cook light wgt meals with R arm. 10/24/24: Carrying 13# dog, at times strenuous. STG Duration 09/07/24 (10/24/24: MET GOAL) Nursing Home Goal (LTG) Improve function per UE Quickdash score of 25 or less 09/05/24: UE Quickdash score 77.27 (initial score 81. 81). 09/26/24: UE Quickdash score 68.18 (60-79% impaired). 10/24/24: UE Quickdash score 45.45 (40-59% impaired). 11/16/24: UE Quickdash score 43.18 (40-59% impaired). LTG Duration 01/18/25 progressing 11/16/24 Three Impairment Decreased R shoulder strength Short Term Goal (STG Pt will be able to lift her R arm overhead and rotate ) at shoulder for independent dressing and personal care with minimal difficulty (comb hair). 09/26/24: Pt not able to lift arm overhead to dress and can't comb her hair w/R arm. R shoulder strength is generally 2/5. 10/24/24: Dresses self. Can comb hair with moderate difficulty and takes an extended amt of time. Can wash entire head of hair like normal. 11/16/24: Pt is independent with all self care except putting clip in hair, with moderate difficulty. STG Duration 12/21/24 progressed 11/16/24 Grocery Cashier Goal (LTG) Pt will be able to cook simple light wgt meals with cast iron pans with R arm, and use both arms for ADLs ( bathing and cooking). 09/26/24: Pt able to cook light wgt meal with R arm used. Not able to bath with R arm. 10/24/24: Cooking light meals, not able to use cast iron pans. Uses both arms for ADLs. 11/16/24: Pt able to cook light meals with cast iron pans. LTG Duration 01/18/25 (11/16/24: MET GOAL) Two Impairment Decreased R shoulder PROM Short Term Goal (STG Improve R shoulder PROM to 50% of normal (per L ) shoulder PROM) once cleared for all motions of PROM. 07/20/2024 PROM table slide to 81 deg R shoulder this session, ER PROM to 12 in scap plane and flexion to 54 deg in scap plane. 08/08/24: PROM table slide flex is 83-85 deg's. 08/22/24: PROM (sit & sup) sit table slide flex 88?, ER (scapular plane) 20? after ROM ex. IR-pt can lay hand across abdomen. 08/30/2024 Patient now out of sling in home, wears sling when out in public AROM end of session right shoulder flexion 64 deg. 09/05/24: PROM table slide R shoulder flex: 98?. 09/26/24: PROM supine: flex 130 ?, AB 80?, ER 30? (in 80? AB), IR 40? (in 80? AB). flex and IR is 50% of norm. 10/24/24: PROM supine: flex 150?, AB 100?, ER 50? (in 80? AB), IR 80? (in 80? AB), flex & IR is > 50% normal. STG Duration 10/30/24 (10/24/24: MET GOAL) Grocery Cashier Goal (LTG) Improve R shoulder PROM to 80%-90% of normal ROM (per L shoulder PROM). 11/09/2024 AROM R shoulder flexion 133 deg end of session LTG Duration 01/18/25 progressing 11/16/24 One Impairment Lacks appropriate self care HEP Short Term Goal (STG Pt will be on a home exercise program with the assist ) of her spouse for PROM exercises and pain managment. 07/13/24: I/S pt in self PROM of elbow and forearm sup /pron, and Active wrist flex/ext. Deep breathing and bowel massage. 07/26/2023 Patient reports performing HEP. 10/03/24: Reviewed with pt use of cryotherapy for pain after ex's and recommended pt taking on travel trip for in the car. Pt is now doing AAROM ex's w/o need for spouse assist. STG Duration 10/30/24 (10/03/24: MET GOAL) Nursing Home Goal (LTG) Pt will be independent in a self care HEP of R shoulder PROM/AROM/strengthening ex's for return to her prior level of function. 07/13/24: I/S pt in self PROM of elbow and forearm sup /pron, and Active wrist flex/ext. Deep breathing and bowel massage. 09/13/24: table slide forward flexion, rudy Flexion ( declined HO) 11/02/2024 added D1 and D2 AROM for shoulder to HEP and seated UT stretch due to inc densit/stiffness impacting scapular mobility. LTG Duration 01/18/25 progressed 09/13/24 Assessment Summary Assessment AROM R shoulder flexion 132 deg end of session. Good filomena to mini band ER with flexion for neuro re ed and ER strengthening and for serratus punch with 1 lb weight. Physical Therapy Plan Frequency and Duration Frequency of 2x/Week Treatment Duration of 9 treatment (weeks) Plan of Care Start 11/16/24 Date Plan of Care End 01/18/25 Date Next Visit Focus/Plan Next Note Type Treatment Note Next Visit Plan KX. Focus on abd with good R scapulohumeral and shoulder postion motion. Cont: Focus on Passive & then AROM (R shoulder AB, IR) to progress to Phase 6 for strengthening to 80% of L shoulder, ER/IR (60% of L shoulder). PT rehab for s/p R RC rpr/biceps tenodesis/subacromial bursectomy/extensive SLAP tear debridement per referring physician protocol provided ( [facility] for small to medium sized tears). Pt in Phase 5 protocol provided by surgeon,. progression dependent on achieving full PROM, AROM with minimal to no substitution patterns and symmetric scapular mechanics. Use of IFC at low level to not create strong ms contraction. PT-OP-H Neuro Start: 07/09/24 13:22 Freq: Status: Active Protocol: Document 07/10/24 16:07 LRN (Rec: 07/10/24 18:28 LRN [id number]) Sensation Evaluation Gross Sensation Gross Sensation WNL Comments Summary Comments Hyper sensitive in the R shoulder and axillary region. PT-OP-J Posture/Palpation/Skin Start: 07/09/24 13:22 Freq: Status: Active Protocol: Document 07/10/24 16:07 LRN (Rec: 07/10/24 18:28 LRN [id number]) Posture Evaluation Position Sitting Head/C-Spine Posture Forward Head Shoulder Posture (L) Elevated Comments Posture Comments Dowagers hump, mildly straightened T/S spine. Palpation Assessment Location R shoulder Palpation Location Below clavicle, shdr to neck, brachium and forearm. Palpation Findings Soft Tissue Tightness,Muscle Guarding,Tenderness PT-OP-K Range of Motion Start: 07/09/24 13:22 Freq: Status: Active Protocol: Document 11/16/24 09:48 LRN (Rec: 11/16/24 10:33 LRN Laptop) Shoulder Goniometric Range of Motion Shoulder Right Passive Testing Position Supine Flexion 155 Extension 65 Abduction 105 External Rotation at 70 90 degrees Abduction Internal Rotation 45 Comments IR taken with GHJ stabilized (counter pressure anteriorly) Right Active Testing Position Sitting Flexion 135 Extension 45 Abduction 90 Internal Rotation L5 Behind Back (text) Comments Reaching behind head: Between T1-T2 PT-OP-M Strength Start: 07/09/24 13:22 Freq: Status: Active Protocol: Document 09/26/24 13:43 LRN (Rec: 09/26/24 15:41 LRN Laptop) Shoulder Strength Shoulder Manual Muscle Testing Right Flexion 2 Poor Abduction (C5) 2 Poor External Rotation 2 Poor Internal Rotation 2 Poor Comments Limited due to pain from restricted AROM. PT-OP-Q Treatments Start: 07/09/24 13:22 Freq: Status: Active Protocol: Document 11/27/24 08:56 LRN (Rec: 11/27/24 09:48 LRN Laptop) Cardio Equipment Upper Body Ergometer (UBE) Duration (Minutes) 5 Seat Position 7 Height 6 Other R shoulder AROM: flex 123 degs Therapeutic Exercises Supine Exercises DI and D2 Side right Equipment Used Walking pole for R UE positional hold and release Reps/Minutes 30 SH x 6 Sitting Exercises Shoulder AB Sitting Exercise Pec stretch Name Equipment Used 1/2 roll tried - DC due to pain. Walking cane for R UE support Reps/Minutes 30 SH x 2 each Standing Exercises Scap protract/retract Standing Exercise Push up plus with wall push up Name Reps/Minutes 5x 3 Comments Much cuing for scapular protraction and return to rest (retraction). AROM D1/D2 Side bilateral Reps/Minutes 10x AAROM D1/D2 Standing Exercise AROM R side only, then both sides w/Scapular MWM Name support Side right Equipment Used Overdoor rudy Reps/Minutes 10x Passive shoulder ER Standing Exercise PROM Name shoulder IR stretch with towel Side right Reps/Minutes 60 sec X2 Comments IR behind back: R to T12 (L side T9) Codman's Standing Exercise Codman's after wall stretching Name Side right Reps/Minutes 3' Other Exercises 4 pt Push Up Plus Reps/Minutes x 5 Comments Much cuing for scapular protraction and return to rest (retraction) PT-OP-R Modalities Start: 07/09/24 13:22 Freq: Status: Active Protocol: Document 09/13/24 10:45 SP (Rec: 09/13/24 11:37 SP [id number]) Hot Pack/Cold Pack Treatment Cold Pack Location R shoulder Patient Position Sitting Patient Tolerance Good Comments 10 min PT-OP-T Assessment and Plan Start: 07/09/24 13:22 Freq: Status: Active Protocol: Document 11/27/24 08:56 LRN (Rec: 11/27/24 09:48 LRN Laptop) Physical Therapy Assessment Goals Four Impairment Decreased function Short Term Goal (STG pt able to strengthen the arm to carry light objects. ) 09/26/24: Pt is slowly progressing in he R shoulder strength but is limited by pain. With moderate difficulty can cook light wgt meals with R arm. 10/24/24: Carrying 13# dog, at times strenuous. STG Duration 09/07/24 (10/24/24: MET GOAL) Grocery Cashier Goal (LTG) Improve function per UE Quickdash score of 25 or less 09/05/24: UE Quickdash score 77.27 (initial score 81. 81). 09/26/24: UE Quickdash score 68.18 (60-79% impaired). 10/24/24: UE Quickdash score 45.45 (40-59% impaired). 11/16/24: UE Quickdash score 43.18 (40-59% impaired). LTG Duration 01/18/25 progressing 11/16/24 Three Impairment Decreased R shoulder strength Short Term Goal (STG Pt will be able to lift her R arm overhead and rotate ) at shoulder for independent dressing and personal care with minimal difficulty (comb hair). 09/26/24: Pt not able to lift arm overhead to dress and can't comb her hair w/R arm. R shoulder strength is generally 2/5. 10/24/24: Dresses self. Can comb hair with moderate difficulty and takes an extended amt of time. Can wash entire head of hair like normal. 11/16/24: Pt is independent with all self care except putting clip in hair, with moderate difficulty. STG Duration 12/21/24 progressed 11/16/24 Grocery Cashier Goal (LTG) Pt will be able to cook simple light wgt meals with cast iron pans with R arm, and use both arms for ADLs ( bathing and cooking). 09/26/24: Pt able to cook light wgt meal with R arm used. Not able to bath with R arm. 10/24/24: Cooking light meals, not able to use cast iron pans. Uses both arms for ADLs. 11/16/24: Pt able to cook light meals with cast iron pans. LTG Duration 01/18/25 (11/16/24: MET GOAL) Two Impairment Decreased R shoulder PROM Short Term Goal (STG Improve R shoulder PROM to 50% of normal (per L ) shoulder PROM) once cleared for all motions of PROM. 07/20/2024 PROM table slide to 81 deg R shoulder this session, ER PROM to 12 in scap plane and flexion to 54 deg in scap plane. 08/08/24: PROM table slide flex is 83-85 deg's. 08/22/24: PROM (sit & sup) sit table slide flex 88?, ER (scapular plane) 20? after ROM ex. IR-pt can lay hand across abdomen. 08/30/2024 Patient now out of sling in home, wears sling when out in public AROM end of session right shoulder flexion 64 deg. 09/05/24: PROM table slide R shoulder flex: 98?. 09/26/24: PROM supine: flex 130 ?, AB 80?, ER 30? (in 80? AB), IR 40? (in 80? AB). flex and IR is 50% of norm. 10/24/24: PROM supine: flex 150?, AB 100?, ER 50? (in 80? AB), IR 80? (in 80? AB), flex & IR is > 50% normal. STG Duration 10/30/24 (10/24/24: MET GOAL) Nursing Home Goal (LTG) Improve R shoulder PROM to 80%-90% of normal ROM (per L shoulder PROM). 11/09/2024 AROM R shoulder flexion 133 deg end of session LTG Duration 01/18/25 progressing 11/16/24 One Impairment Lacks appropriate self care HEP Short Term Goal (STG Pt will be on a home exercise program with the assist ) of her spouse for PROM exercises and pain managment. 07/13/24: I/S pt in self PROM of elbow and forearm sup /pron, and Active wrist flex/ext. Deep breathing and bowel massage. 07/26/2023 Patient reports performing HEP. 10/03/24: Reviewed with pt use of cryotherapy for pain after ex's and recommended pt taking on travel trip for in the car. Pt is now doing AAROM ex's w/o need for spouse assist. STG Duration 10/30/24 (10/03/24: MET GOAL) Nursing Home Goal (LTG) Pt will be independent in a self care HEP of R shoulder PROM/AROM/strengthening ex's for return to her prior level of function. 07/13/24: I/S pt in self PROM of elbow and forearm sup /pron, and Active wrist flex/ext. Deep breathing and bowel massage. 09/13/24: table slide forward flexion, rudy Flexion ( declined HO) 11/02/2024 added D1 and D2 AROM for shoulder to HEP and seated UT stretch due to inc densit/stiffness impacting scapular mobility. LTG Duration 01/18/25 progressed 09/13/24 Assessment Summary Assessment 69 yo female a little over 19 wks post op (over 3 months) R RC rpr/biceps tenodesis/subacromial bursectomy/extensive SLAP tear debridement. Her R shoulder active flexion ROM improved from 134 to 139 deg's. Pt can now put her air up with a clip using the R arm. Pec stretch using 1/2 roll is too aggressive as she gets a good stretch lying on plinth with arm in Abduction for pec min/kimber stretch. PNF pattern ex have been very helpful in improving motion. Shoulder IR ROM is improving (see behind back stretch). Physical Therapy Plan Frequency and Duration Frequency of 2x/Week Treatment Duration of 9 treatment (weeks) Plan of Care Start 11/16/24 Date Plan of Care End 01/18/25 Date Next Visit Focus/Plan Next Note Type Treatment Note Next Visit Plan KX. Next Strengthen serratus anterior & RC to achieve proper scapulohumeral rhythm with R arm AROM. Focus on abd with good R scapulohumeral and shoulder postion motion. Cont: Focus on Passive & then AROM (R shoulder AB, IR) to progress to Phase 6 for strengthening to 80% of L shoulder, ER/IR (60% of L shoulder). PT rehab for s/p R RC rpr/biceps tenodesis/subacromial bursectomy/extensive SLAP tear debridement per referring physician protocol provided ( [facility] for small to medium sized tears). Pt in Phase 5 protocol provided by surgeon,. progression dependent on achieving full PROM, AROM with minimal to no substitution patterns and symmetric scapular mechanics. Use of IFC at low level to not create strong ms contraction.
--- NOTE | 2024-12-04 11:27 | PT.OTN ---
Current Diagnoses Primary osteoarthritis, right shoulder (12/04/24) Superior glenoid labrum lesion of right shoulder, subsequent encounter (12/04/24) Strain of muscle(s) and tendon(s) of the rotator cuff of right shoulder, subsequent encounter (12/04/24) Physical Therapy Treatment Note PT OP: Cervical/Upper Extremity Start: 11/29/24 09:06 Freq: Status: Active Protocol: Document 12/04/24 09:05 LRN (Rec: 12/04/24 09:55 LRN Laptop) Out-Patient Physical Therapy Visit Information Visit Information Visit Type Treatment Note Visit Note KX Visit Start Time 09:05 Visit Stop Time 09:58 Visit Number 23 Evaluation Information Evaluation Date 07/10/24 Precautions Precautions Reports hx of L cracked rib couple yrs ago. 07/05/24 P/ O arthroscopic R shdr RCR rpr, biceps tenodesis & debridement of extensive superior labral tearing (SLAP tear). 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 No cryotherapy to take due to last time water spilled out. OP-PT Subjective Patient Comments Patient Comments States shoulder feels good. Always has achy soreness. States she is lifting 15#, states MD didn't give her a lifting restriction. Pain level is 3/10 (achy), hasn' t taken any Tylenol. Cardio Equipment Upper Body Ergometer (UBE) Duration (Minutes) 5 Seat Position 5 Height 6.5 Therapeutic Exercises Supine Exercises ER stretch Supine Exercise Name Stretch in scapular plane Comments AROM: 85 deg's. Ecc D1/D2 Supine Exercise Name Pt resisting reverse mvmts of D1/D2 Side bilateral Reps/Minutes 10x each Comments Constant cuing for pt to give only light resistance for smooth ease of mvmt IR stretch Supine Exercise Name Stretch in scapular plane Side right Comments AROM: 55 deg's in scapular plane. Standing Exercises Mini Band Standing Exercise shoulder ER with band, forearms against wall Name Side bilateral Equipment Used lev 2 Comments Pt ed single thickness band, verbal and visual cues monitored for pain AAROM D1/D2 Standing Exercise AROM R side only, then both sides w/Scapular MWM Name support Side right Equipment Used Overdoor rudy Reps/Minutes 10x Passive shoulder ER Standing Exercise in Scapular plane Name shoulder IR stretch with towel Side right Reps/Minutes 60 sec X2 Comments IR behind back: R to T12 (L side T9) Shdr ER/IR Side right Resistance level two band Reps/Minutes 15x2 each direction Comments Verbal cues to avoid moving trunk Shoulder AAROM Standing Exercise Flex & AB with use of TBand to assist lift Name Reps/Minutes 15x Codman's Standing Exercise Codman's after wall stretching Name Side right Reps/Minutes 3' Manual Therapy Treatment Joint Mobilizations R GHJ Joint R GHJ Direction Inferior glide Grade II Body Position Supine Reps/Duration 3' Physical Therapy Assessment Goals Four Impairment Decreased function Short Term Goal (STG pt able to strengthen the arm to carry light objects. ) 09/26/24: Pt is slowly progressing in he R shoulder strength but is limited by pain. With moderate difficulty can cook light wgt meals with R arm. 10/24/24: Carrying 13# dog, at times strenuous. STG Duration 09/07/24 (10/24/24: MET GOAL) Waistband Setter Lockstitch Goal (LTG) Improve function per UE Quickdash score of 25 or less 09/05/24: UE Quickdash score 77.27 (initial score 81. 81). 09/26/24: UE Quickdash score 68.18 (60-79% impaired). 10/24/24: UE Quickdash score 45.45 (40-59% impaired). 11/16/24: UE Quickdash score 43.18 (40-59% impaired). LTG Duration 01/18/25 progressing 11/16/24 Three Impairment Decreased R shoulder strength Short Term Goal (STG Pt will be able to lift her R arm overhead and rotate ) at shoulder for independent dressing and personal care with minimal difficulty (comb hair). 09/26/24: Pt not able to lift arm overhead to dress and can't comb her hair w/R arm. R shoulder strength is generally 2/5. 10/24/24: Dresses self. Can comb hair with moderate difficulty and takes an extended amt of time. Can wash entire head of hair like normal. 11/16/24: Pt is independent with all self care except putting clip in hair, with moderate difficulty. STG Duration 12/21/24 progressed 11/16/24 Assisted Goal (LTG) Pt will be able to cook simple light wgt meals with cast iron pans with R arm, and use both arms for ADLs ( bathing and cooking). 09/26/24: Pt able to cook light wgt meal with R arm used. Not able to bath with R arm. 10/24/24: Cooking light meals, not able to use cast iron pans. Uses both arms for ADLs. 11/16/24: Pt able to cook light meals with cast iron pans. LTG Duration 01/18/25 (11/16/24: MET GOAL) Two Impairment Decreased R shoulder PROM Short Term Goal (STG Improve R shoulder PROM to 50% of normal (per L ) shoulder PROM) once cleared for all motions of PROM. 07/20/2024 PROM table slide to 81 deg R shoulder this session, ER PROM to 12 in scap plane and flexion to 54 deg in scap plane. 08/08/24: PROM table slide flex is 83-85 deg's. 08/22/24: PROM (sit & sup) sit table slide flex 88?, ER (scapular plane) 20? after ROM ex. IR-pt can lay hand across abdomen. 08/30/2024 Patient now out of sling in home, wears sling when out in public AROM end of session right shoulder flexion 64 deg. 09/05/24: PROM table slide R shoulder flex: 98?. 09/26/24: PROM supine: flex 130 ?, AB 80?, ER 30? (in 80? AB), IR 40? (in 80? AB). flex and IR is 50% of norm. 10/24/24: PROM supine: flex 150?, AB 100?, ER 50? (in 80? AB), IR 80? (in 80? AB), flex & IR is > 50% normal. STG Duration 10/30/24 (10/24/24: MET GOAL) Assisted Goal (LTG) Improve R shoulder PROM to 80%-90% of normal ROM (per L shoulder PROM). 11/09/2024 AROM R shoulder flexion 133 deg end of session. 12/04/24: AROM R shoulder ER/IR in scapular plane is at 60% ROM, 54 deg's IR, 85 deg's ER. LTG Duration 01/18/25 progressing 12/04/24 One Impairment Lacks appropriate self care HEP Short Term Goal (STG Pt will be on a home exercise program with the assist ) of her spouse for PROM exercises and pain managment. 07/13/24: I/S pt in self PROM of elbow and forearm sup /pron, and Active wrist flex/ext. Deep breathing and bowel massage. 07/26/2023 Patient reports performing HEP. 10/03/24: Reviewed with pt use of cryotherapy for pain after ex's and recommended pt taking on travel trip for in the car. Pt is now doing AAROM ex's w/o need for spouse assist. STG Duration 10/30/24 (10/03/24: MET GOAL) Assisted Goal (LTG) Pt will be independent in a self care HEP of R shoulder PROM/AROM/strengthening ex's for return to her prior level of function. 07/13/24: I/S pt in self PROM of elbow and forearm sup /pron, and Active wrist flex/ext. Deep breathing and bowel massage. 09/13/24: table slide forward flexion, rudy Flexion ( declined HO) 11/02/2024 added D1 and D2 AROM for shoulder to HEP and seated UT stretch due to inc densit/stiffness impacting scapular mobility. LTG Duration 01/18/25 progressed 11/02/24 Assessment Summary Assessment 69 yo female a little over 20 wks post op R RC rpr/ biceps tenodesis/subacromial bursectomy/extensive SLAP tear debridement. Today, R shoulder AAROM flex: is 145 deg's, AROM 140 deg's to start. In scapular plane R shoulder active ER is 95 deg's and IR is 54 deg's. Shoulder IR is most limited and scapular stabilizers are weak. Started ecc strengthening and pt noted feeling the strengthening in her intrascapular ms. Pt has very good tolerance to exercise and continues to progress in her R shoulder ROM and strengthening. Physical Therapy Plan Frequency and Duration Frequency of 2x/Week Treatment Duration of 9 treatment (weeks) Plan of Care Start 11/16/24 Date Plan of Care End 01/18/25 Date Next Visit Focus/Plan Next Note Type Treatment Note Next Visit Plan KX. PN next visit with PT. OUTREACH DIRECTOR to assess UE Quickdash . Focus on abd with good R scapulohumeral and shoulder position motion, also on Passive & then AROM ( R shoulder AB, IR) to progress to Phase 6 for strengthening to 80% of L shoulder, ER/IR (60% of L shoulder, 54 deg's ER/IR). PT rehab for s/p R RC rpr /biceps tenodesis/subacromial bursectomy/extensive SLAP tear debridement per referring physician protocol provided ([facility] for small to medium sized tears). Pt in Phase 5 protocol provided by surgeon,. progression dependent on achieving full PROM, AROM with minimal to no substitution patterns and symmetric scapular mechanics. Use of IFC at low level to not create strong ms contraction.
--- NOTE | 2024-12-12 15:30 | PT.OPPOC ---
Physical, Occupational & Speech Therapy At [facility] Current Diagnoses Primary osteoarthritis, right shoulder (12/12/24) Superior glenoid labrum lesion of right shoulder, subsequent encounter (12/12/24) Strain of muscle(s) and tendon(s) of the rotator cuff of right shoulder, subsequent encounter (12/12/24) Visit Care Team Role Provider Type ANAID Fagan Family Provider Non-Staff Primary Care Provider Specialty: Medical Address: [address] [place] [address], [id number] Email: Cesar Cole PA-C Attending Provider Non-Staff Referring Provider Specialty: Medical Address: [address] [place] [address] [address], [place], [address] Email: Plan Of Care PT OP: Cervical/Upper Extremity Start: 11/29/24 09:06 Freq: Status: Active Protocol: Document 12/12/24 11:00 LRN (Rec: 12/12/24 12:36 LRN Laptop) Out-Patient Physical Therapy Visit Information Visit Information Visit Type Progress Note Visit Note KX Visit Start Time 11:00 Visit Stop Time 11:58 Visit Number 25 Progress Note Due 12/16/24 Evaluation Information Evaluation Date 07/10/24 Precautions Precautions Reports hx of L cracked rib couple yrs ago. 07/05/24 P/ O arthroscopic R shdr RCR rpr, biceps tenodesis & debridement of extensive superior labral tearing (SLAP tear). 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 No cryotherapy to take due to last time water spilled out. OP-PT Subjective Patient Comments Patient Comments Doing really good. Doing all the ex's. Still has achy pain, but not severe, Ache pain from maybe using muscles. . Today, pain is 3/10. Patient Questionnaires Quick Dash- Upper Extremity Quick Dash UE Score Score as of 12/08/24 - 36.3 Quick Dash UE 20 to 39% Impaired (Score 20-39) Impairment Shoulder Goniometric Range of Motion Shoulder Measured in Degrees Left Passive Shoulder ROM WFL No Testing Position Supine Flexion 170 Abduction 170 External Rotation at 90 90 degrees Abduction Internal Rotation 90 Right Passive Shoulder ROM WFL Yes Testing Position Supine Flexion 170 Abduction 120 External Rotation at 60 90 degrees Abduction Internal Rotation 80 Right Active Shoulder ROM WFL No Testing Position Sitting Flexion 145 Extension 55 Abduction 145 External Rotation at 65 0 degrees Abduction Internal Rotation T8 Behind Back (text) Left Active Shoulder ROM WFL Yes Testing Position Sitting Flexion 155 Extension 55 Abduction 160 External Rotation at 75 0 degrees Abduction Internal Rotation T6 Behind Back (text) Cardio Equipment Upper Body Ergometer (UBE) Duration (Minutes) 6 RPM 70 Seat Position 5 Height 6.5 Other Cued for change in direction every 1 min and for scapular stab Therapeutic Exercises Supine Exercises ER stretch Supine Exercise Name AAROM R shdr, PROM L shdr for ROM Side right Reps/Minutes x 4' Comments ROM msmts taken for PROM. Extra time to deter max filomena stretch. AAROM R shoulder AB Supine Exercise Name AAROM R shdr, PROM L shdr for ROM Side right Reps/Minutes 2' Comments ROM msmts taken for PROM. Extra time to deter max filomena stretch. IR stretch Supine Exercise Name AAROM R shdr, PROM L shdr for ROM Side right Reps/Minutes x4' Comments ROM msmts taken for PROM. Xtra time to deter max filomena stretch & stab shdr Sitting Exercises Shoulder Flex Sitting Exercise AROM Name Side bilateral Reps/Minutes x 2 Comments ROM taken with cuing for scapulo humeral rhythm Shder IR stretch w/belt Sitting Exercise ROM assessed after stretch Name Side right Reps/Minutes 30 SH x 4 Comments Cued to not push into pain and how to use strap to assist with stretch. Shoulder IR Sitting Exercise Active shoulder IR for ROM Name Side bilateral Comments ROM taken Shoulder AB Sitting Exercise AROM Name Side bilateral Reps/Minutes X 2 Comments ROM taken with cuing for scapulo humeral rhythm Shoulder ER Sitting Exercise AROM Name Side bilateral Reps/Minutes x 2 Comments ROM taken with cuing for scapulo humeral rhythm Standing Exercises shoulder IR stretch with towel Side right Reps/Minutes 60 sec X 3 Comments IR behind back: R to T8 (L side T6) Passive Shdr flex Standing Exercise Sliding hands up wall. Name Side right Reps/Minutes 30 SH x 4 Codman's Standing Exercise Codman's after wall stretching Name Side right Reps/Minutes 3' Manual Therapy Treatment Consent Patient gave verbal Yes consent for manual treatment Soft Tissue Mobilization R UE Body Location Biceps muscle bellies Mobilization Type Myofascial Release,Strumming Intensity/Depth Moderate Body Position Supine legs on bolster Comments MFR in all directions, improved after STM. No change in pain with gentle manual C. axial tx. R deltoid Body Location Anterior/Middle Deltoid Mobilization Type Myofascial Release,Strumming Intensity/Depth Moderate Body Position Supine legs on bolster Comments MFR in all directions, improved after STM. No change in pain with gentle manual C. axial tx. Self-Care/Home Management Treatment Activities Self-Care/Home I/S pt to make today a rest day and work towards Management reducing ache with rest and use of ice/heat. Activities Physical Therapy Assessment Rehab Potential Rehabilitation Excellent Potential Evaluation Complexity Number of Personal 1-2 Factors/ Comorbidities Number of Body 4 or More Systems Impaired Clinical Evolving Presentation at Evaluation Impairments Impairments Activity Tolerance,Functional Activities,Functional Mobility,Pain,ROM,Soft Tissue Mobility,Strength Goals Five Impairment Decreased functional R shoulder strength Fci Goal (LTG) Pt will be able to pull her pillow behind her or onto her side while sleeping at night (pt positioned in L sidelie). LTG Duration 01/18/25 Four Impairment Decreased function Short Term Goal (STG pt able to strengthen the arm to carry light objects. ) 09/26/24: Pt is slowly progressing in he R shoulder strength but is limited by pain. With moderate difficulty can cook light wgt meals with R arm. 10/24/24: Carrying 13# dog, at times strenuous. STG Duration 09/07/24 (10/24/24: MET GOAL) Fci Goal (LTG) Improve function per UE Quickdash score of 25 or less 09/05/24: UE Quickdash score 77.27 (initial score 81. 81). 09/26/24: UE Quickdash score 68.18 (60-79% impaired). 10/24/24: UE Quickdash score 45.45 (40-59% impaired). 11/16/24: UE Quickdash score 43.18 (40-59% impaired) 12/08/24: UE Quickdash score 36.3 (20-39% impaired) LTG Duration 01/18/25 progressing 12/12/24 Three Impairment Decreased R shoulder strength Short Term Goal (STG Pt will be able to lift her R arm overhead and rotate ) at shoulder for independent dressing and personal care with minimal difficulty (comb hair). 09/26/24: Pt not able to lift arm overhead to dress and can't comb her hair w/R arm. R shoulder strength is generally 2/5. 10/24/24: Dresses self. Can comb hair with moderate difficulty and takes an extended amt of time. Can wash entire head of hair like normal. 11/16/24: Pt is independent with all self care except putting clip in hair, with moderate difficulty. 12/12/24: Pt is independent with combing her hair w/R arm. STG Duration 12/21/24 (12/11/24: MET GOAL) Fci Goal (LTG) Pt will be able to cook simple light wgt meals with cast iron pans with R arm, and use both arms for ADLs ( bathing and cooking). 09/26/24: Pt able to cook light wgt meal with R arm used. Not able to bath with R arm. 10/24/24: Cooking light meals, not able to use cast iron pans. Uses both arms for ADLs. 11/16/24: Pt able to cook light meals with cast iron pans. LTG Duration 01/18/25 (11/16/24: MET GOAL) Two Impairment Decreased R shoulder PROM Short Term Goal (STG Improve R shoulder PROM to 50% of normal (per L ) shoulder PROM) once cleared for all motions of PROM. 07/20/2024 PROM table slide to 81 deg R shoulder this session, ER PROM to 12 in scap plane and flexion to 54 deg in scap plane. 08/08/24: PROM table slide flex is 83-85 deg's. 08/22/24: PROM (sit & sup) sit table slide flex 88?, ER (scapular plane) 20? after ROM ex. IR-pt can lay hand across abdomen. 08/30/2024 Patient now out of sling in home, wears sling when out in public AROM end of session right shoulder flexion 64 deg. 09/05/24: PROM table slide R shoulder flex: 98?. 09/26/24: PROM supine: flex 130 ?, AB 80?, ER 30? (in 80? AB), IR 40? (in 80? AB). flex and IR is 50% of norm. 10/24/24: PROM supine: flex 150?, AB 100?, ER 50? (in 80? AB), IR 80? (in 80? AB), flex & IR is > 50% normal. STG Duration 10/30/24 (10/24/24: MET GOAL) Fci Goal (LTG) Improve R shoulder PROM to 80%-90% of normal ROM (per L shoulder PROM). (goal addition 12/12/24) Improve shoulder IR ROM to be able to reach behind her while in R sidelie without pain at nighttime. 11/09/2024 AROM R shoulder flexion 133 deg end of session. 12/04/24: AROM R shoulder ER/IR in scapular plane is at 60% ROM, 54 deg's IR, 85 deg's ER. : AROM R shoulder ER/IR in supine: IR 80?, ER 60? (80%-90% of L shdr AROM ER/IR: 80% is 72?, 90% is 81?). LTG Duration 01/18/25 progressing 12/12/24 (ER is not at 80-90% of L shoulder PROM) One Impairment Lacks appropriate self care HEP Short Term Goal (STG Pt will be on a home exercise program with the assist ) of her spouse for PROM exercises and pain managment. 07/13/24: I/S pt in self PROM of elbow and forearm sup /pron, and Active wrist flex/ext. Deep breathing and bowel massage. 07/26/2023 Patient reports performing HEP. 10/03/24: Reviewed with pt use of cryotherapy for pain after ex's and recommended pt taking on travel trip for in the car. Pt is now doing AAROM ex's w/o need for spouse assist. STG Duration 10/30/24 (10/03/24: MET GOAL) Rice Drier Operator Goal (LTG) Pt will be independent in a self care HEP of R shoulder PROM/AROM/strengthening ex's for return to her prior level of function. 07/13/24: I/S pt in self PROM of elbow and forearm sup /pron, and Active wrist flex/ext. Deep breathing and bowel massage. 09/13/24: table slide forward flexion, rudy Flexion ( declined HO) 11/02/2024 added D1 and D2 AROM for shoulder to HEP and seated UT stretch due to inc densit/stiffness impacting scapular mobility. LTG Duration 01/18/25 progressed 11/02/24 Assessment Summary Assessment 69 yo female 5 mos 1 wk post op R RC rpr/biceps tenodesis/subacromial bursectomy/extensive SLAP tear debridement. R hand behind back with thumb to T9 (L hand to T6), sitting AROM flexion R shoulder end of session 145 deg's (L is 155 deg's). Pt wants to focus on improving R shoulder IR ROM to be able to at nighttime (in L sidelie), reach behind her to pull her pillow in to her back or side of trunk; therefore her ROM goal has been updated and new POC is needed. Physical Therapy Plan Frequency and Duration Frequency of 2x/Week Treatment Duration of 9 treatment (weeks) Plan of Care Start 11/16/24 Date Plan of Care End 01/18/25 Date Next Visit Focus/Plan Next Note Type Treatment Note Next Visit Plan KX, Focus on improving R shoulder IR ROM and strength while minimizing the pain at the shoulder w/STM to R shoulder/neck, and secondary R shoulder AB with good SHR. Pt is currently in Phase 5 protocol provided by surgeon, progression dependent on achieving full PROM, AROM with minimal to no substitution patterns and symmetric scapular mechanics (pt currently is only interested in improving R shdr IR ROM & strength). Per protocol, progress into Phase 6 for 80% strength of L shoulder, ER/IR (60% of L shoulder ROM, 54 deg's ER/ IR - MET). POC: PT rehab for s/p R RC rpr/biceps tenodesis/ subacromial bursectomy/extensive SLAP tear debridement per referring physician protocol provided ( [facility] for small to medium sized tears). Plan of Care Dates Plan of Care Start Date 11/16/24 Plan of Care End Date 01/18/25 Electronically Signed by: Kyra Gifford, PT 12/12/24 [id number] If you are in agreement with this Plan of Care, please return a signed and dated copy. I have reviewed this Plan of Care and certify that the skilled therapy services above are required to meet the patient?s needs. Physician Signature Date Printed Name and Credentials Clinical Instructor Signature Printed Name and Credentials
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
== END 2025-01-01 09:40 | disposition home or self-care (01) ==
LOC: PHYS 09:45
PROVIDERS: Family Provider Nurse Practitioner Family; PCP Nurse Practitioner Family; Referring Provider Physician Assistant; Visit Provider Physician Assistant
DX: M19.011 Primary osteoarthritis, right shoulder (principal); S46.011D Strain of muscle(s) and tendon(s) of the rotator cuff of right shoulder, subsequent encounter; S43.431D Superior glenoid labrum lesion of right shoulder, subsequent encounter
CPT/HCPCS: 97010; 97110; 97140; 97162; 97530; 97535